=== PATIENT | female | born 1955 | race Caucasian/White ===

== ENCOUNTER → 2018-09-07 | Outpatient (CLI) | payer BC | END | disposition home or self-care (01) | LOC: LABWHC1 11:01 | PROVIDERS: ATTEND Otolaryngology | DX: J30.89 Other allergic rhinitis (principal) | CPT/HCPCS: 36415 ==

== ENCOUNTER → 2019-01-05 | Outpatient (CLI) | payer BC ==
--- NOTE | 2019-01-05 12:08 | MR ---
EXAMINATION TYPE: MR brain and iac wo/w con DATE OF EXAM: 01/05/2019 COMPARISON: 01/15/2010 HISTORY: Loss of balance, Dizziness, Acoustic nerve disorder TECHNIQUE: Multiplanar, multisequence images of the brain and brainstem is performed without and with IV contras t, utilizing 7 mL intravenous Gadavist . FINDINGS: Diffusion weighted images demonstrate no evidence of a recent infarct or other diffusion ab normality. Mild generalized degenerative change. There are numerous focal areas of abnormal signal sc attered throughout the white matter bilaterally nonspecific pattern but most of remote microvascular ischemia. Areas of abnormal signal involving the basal ganglia suggestive remote lacunar infarct. No mass effect or midline shift. No cerebellopontine angle mass. No pathologic enhancement of the ner ve complex. No diagnostic evidence of acoustic schwannoma. Midline structures demonstrate normal morp hology. The craniocervical junction appears within normal limits. Post contrast images demonstrate no abnormal enhancement. The dural venous sinuses appear patent. Changes of chronic sinusitis noted. IMPRESSION: 1. No evidence of cerebellopontine angle mass or acoustic schwannoma. 2. Mild chronic mastoiditis. 3. Mild chronic sinusitis. 4. Degenerative and nonspecific white matter changes most typical remote microvascular ischemia.
== END | disposition home or self-care (01) ==
LOC: RADMRIMAIN 08:34
PROVIDERS: ATTEND Nurse Practitioner Family
DX: H70.10 Chronic mastoiditis, unspecified ear (principal); R90.89 Other abnormal findings on diagnostic imaging of central nervous system; J32.9 Chronic sinusitis, unspecified; H93.3X9 Disorders of unspecified acoustic nerve; R55 Syncope and collapse; H53.10 Unspecified subjective visual disturbances; R40.0 Somnolence
CPT/HCPCS: 70553; A9585

== ENCOUNTER 2020-05-14 07:49 | Inpatient (IN) | payer BC, MEDICARE ==
--- NOTE | 2020-05-14 08:34 | ED ---
General Adult HPI - General Chief complaint: Weakness Stated complaint: weakness Time Seen by Provider: 05/14/20 08:10 Source: patient, EMS Mode of arrival: EMS Limitations: physical limitation - History of Present Illness Initial comments: Dictation was produced using [employer] dictation software. please excuse any grammatical, word or spelling errors. This patient was cared for during a federal and state declared state of emergency secondary to Covid 19 Chief Complaint: 64-year-old female transferred from [facility] for mild ly elevated troponin History of Present Illness: She 4-year-old female she had past medical history of COPD, CHF breast cancer. Currently taking chemotherapy. Patient was just discharged from [facility] 2-3 weeks ago for pneumonia and A. fib and CHF. Patient patient presented to [facility] for worsening weakness. She was there and was found to have slightly elevated troponin, proBNP of 1999. There is also concern of pneumonia. She was ordered for Levaquin and vancomycin. She was transferred here for cardiology and oncology evaluation. Patient states she went to [facility] because his closest. She was feeling weak and her can help her get up. She denies any shortness of breath no cough no fevers or constitutional symptoms no nausea vomiting or pain. The ROS documented in this emergency department record has been reviewed and confirmed by me. Those systems with pertinent positive or negative responses have been documented in the HPI. All other systems are other negative and/or noncontributory. PHYSICAL EXAM: General Impression: Alert and oriented x3, not in acute distress HEENT: Normocephalic atraumatic, extra-ocular movements intact, pupils equal and reactive to light bilaterally, mucous membranes moist. Cardiovascular: Heart regular rate and rhythm Chest: Able to complete full sentences, no retractions, no tachypnea Abdomen: abdomen soft, non-tender, non-distended, no organomegaly Musculoskeletal: Pulses present and equal in all extremities, no peripheral edema Motor: no focal deficits noted Neurological: CN II-XII grossly intact, no focal motor or sensory deficits noted Skin: Intact with no visualized rashes Psych: Normal affect and mood ED course: 64-year-old well-appearing female presents for generalized weakness. Vital signs upon arrival shows findings within acceptable limits. Patient had vancomycin hanging. She was ordered for Levaquin however was not administered. Patient does not have any symptoms to suggest any sort of infection. Levaquin was discontinued. Transfer documentation was reviewed. No obvious infectious processes occurring at this time. Patient already received aspirin prior to arriving at our hospital. Case is discussed with Dr. Mccartney who is covering for Dr. Gilbert. Dr. Mccartney is willing to accept patients care for admission. Cardiology and oncology consulted. - Related Data Home Medications Medication Instructions Recorded Confirmed ALPRAZolam [Xanax] 0.25 mg PO BID PRN 01/27/15 10/16/15 FLUoxetine HCL [PROzac] 20 mg PO DAILY 01/27/15 10/16/15 Insulin Detemir [Levemir Flextouch] 60 units SQ BID 01/27/15 10/16/15 Isosorbide Mononitrate ER [Imdur] 30 mg PO DAILY 01/27/15 10/16/15 Lisinopril/Hydrochlorothiazide 1 each PO DAILY 01/27/15 10/16/15 [Zestoretic 20-25] Simvastatin [Zocor] 20 mg PO HS 01/27/15 10/16/15 amLODIPine BESYLATE [Norvasc] 5 mg PO DAILY 01/27/15 10/16/15 atenoloL [Tenormin] 25 mg PO DAILY 01/27/15 10/16/15 Aspirin 81 mg PO DAILY 01/29/15 10/16/15 Dapagliflozin Propanediol [Farxiga] 5 mg PO DAILY 01/29/15 10/16/15 Insulin Lispro [humaLOG Kwikpen] 13 units SQ TID-W/MEALS 01/29/15 10/16/15 Levothyroxine Sodium [Synthroid] 75 mcg PO DAILY 01/29/15 10/16/15 Naproxen Sodium [Aleve] 220 mg PO Q12HR PRN 10/11/15 10/16/15 metFORMIN HCL 1,000 mg PO BID 10/11/15 10/16/15 Previous Rx's Medication Instructions Recorded traMADol HCl [Ultram] 50 mg PO Q4H PRN #20 tab 01/27/15 Albuterol Sulfate [Proair Hfa] 1 - 2 puff INHALATION Q6HR PRN #1 02/01/15 inhaler Furosemide [Lasix] 40 mg PO DAILY #30 tablet 02/01/15 Potassium Chloride ER [K-Dur 20] 20 meq PO DAILY #30 tab 02/01/15 HYDROcodone/APAP 5-325MG [[place] 5] 1 - 2 each PO Q4H PRN #20 tab 10/16/15 Allergies Allergy/AdvReac Type Severity Reaction Status Date / Time cefaclor [From Ceclor] Allergy Unknown Verified 05/14/20 07:58 clarithromycin [From Biaxin] Allergy Unknown Verified 05/14/20 07:58 Penicillins Allergy Unknown Verified 05/14/20 07:58 Sulfa (Sulfonamide Allergy Unknown Verified 05/14/20 07:58 Antibiotics) Review of Systems ROS Statement: Those systems with pertinent positive or pertinent negative responses have been documented in the HPI. ROS Other: All systems not noted in ROS Statement are negative. Past Medical History Past Medical History: Diabetes Mellitus, Hyperlipidemia, Hypertension, Skin Disorder, Thyroid Disorder Additional Past Medical History / Comment(s): vertigo, eczema, yeast infections in creases, left Breast cancer last chemo 05/07/20 History of Any Multi-Drug Resistant Organisms: MRSA Date of last positivie culture/infection: 06/2012 MDRO Source:: lungs Past Surgical History: Section, Cholecystectomy, Hysterectomy, Orthopedic Surgery Additional Past Surgical History / Comment(s): kenneth rotator cuff sugery, bunione ctomy rt foot Past Anesthesia/Blood Transfusion Reactions: No Reported Reaction Past Psychological History: Anxiety Smoking Status: Former smoker Past Alcohol Use History: None Reported Past Drug Use History: None Reported - Past Family History Mother Family Medical History: No Reported History Father Family Medical History: Hypertension General Exam Limitations: physical limitation Course Vital Signs 05/14/20 05/14/20 07:54 08:31 Temperature 98.8 F Pulse Rate 95 99 Respiratory 18 18 Rate Blood Pressure 106/63 128/63 O2 Sat by Pulse 98 97 Oximetry Disposition Clinical Impression: Elevated troponin Disposition: ADMITTED IP TO THIS [facility] Condition: Fair Referrals: Anil Aldridge MD [Primary Care Provider] - 1-2 days Decision Time: 08:42
[2020-05-14] MEDS ORDERED: NALOXONE 0.4 MG/ML 1 ML VIAL IV PRN (08:40)
--- NOTE | 2020-05-14 09:05 | XR ---
EXAMINATION TYPE: XR chest 1V portable DATE OF EXAM: 05/14/2020 COMPARISON: Prior chest x-ray 01/31/2015, chest x-ray from outside institution 05/14/2020 HISTORY: Pneumonia TECHNIQUE: Single frontal view of the chest is obtained. FINDINGS: Port is present in the left pectoral region, catheter courses to the level of the superior vena cava region. Patchy density is present bilaterally, the interstitium somewhat increased. No del dent pneumothorax. Left hemidiaphragm not entirely visualized. Heart size may be accentuated appearan ce due to rotation. Perihilar density is present. Aorta is dense. No evident pneumothorax. IMPRESSION: Correlate for pneumonia, difficult to exclude effusion. Follow-up is recommended.
[2020-05-14 11:36] LABS: Glucose,Whole Blood 232 mg/dL (75-99)
--- NOTE | 2020-05-14 12:07 | CONS ---
CONSULTATION CHIEF COMPLAINT: Elevated troponin. Kade is a 64-year-old lady with history of breast cancer, status post radiation and chemotherapy. She last received her chemo just over a week ago. Prior admission to [facility] with questionable pneumonia, who is admitted to hospital because of elevated troponin. She states that she went to the emergency room at [facility] primarily because she was feeling fatigued, tired and had weakness in her legs. The troponin was done that came back mildly elevated due to which she is admitted to hospital. At the time of my evaluation this morning, she appears comfortable at rest. Does not have chest pain or difficulty in breathing. Her EKG shows atrial fibrillation with nonspecific ST-T wave changes. The exact etiology of her troponin elevation is unclear, but her clinical presentation is not consistent with a diagnosis of acute myocardial infarction. I am going to obtain another troponin and repeat it every 8 hours. Obtain a 2D echo to assess her LV function and wall motion. PAST MEDICAL HISTORY: Significant for hypertension, hypothyroidism, dyslipidemia, diabetes, CA breast status post chemo radiation. MEDICATIONS: As charted and include metoprolol 25 mg daily, amlodipine 10 mg daily, Trulicity, Singulair, Synthroid, Prozac, Imdur, Lasix, Zestril, Tenormin, Zocor, Zyprexa, insulin, Prozac, Bumex, Eliquis, ProAir, Xanax. ALLERGIC: To CECLOR, CLARITHROMYCIN, PENICILLIN and SULFA. FAMILY HISTORY: Negative for premature coronary artery disease. SOCIAL HISTORY: Negative for current smoking, EtOH abuse, or drug abuse. REVIEW OF SYSTEMS: HEENT is unremarkable. CARDIAC: As described above. RESPIRATORY: As described above. GI: Negative. GENITOURINARY: Negative. ALLERGY/IMMUNOLOGY: Negative. SKIN: Negative. MUSCULOSKELETAL: Significant for arthritis. PSYCHOSOCIAL: Negative. ENDOCRINE: Negative. DERM: Negative. CONSTITUTIONAL: As described above. PHYSICAL EXAM: Patient is comfortable at rest. Afebrile. Heart rate is 98 beats per minute. Blood pressure is 102/6, respiratory rate is 18, O2 saturation is 98% on 4 L. There is no jugular venous distention. Chest exam reveals good air entry bilaterally. Heart exam reveals first and second heart sounds, irregular rhythm. Systolic murmur at the apex. Abdomen is soft. Exam of extremities reveal trace edema. Peripheral pulses are felt. Labs are pending at this time. ASSESSMENT: 1. Weakness, fatigue and tiredness, probably related to recent chemotherapy chemo- radiation and breast cancer. 2. Elevated troponin of no clear clinical significance. The patient did not have chest pain or difficulty in breathing. EKG does not reveal ischemic changes. Her clinical presentation is not consistent with a diagnosis of myocardial infarction and the elevated troponin as such is not related to myocardial infarction. 3. Permanent atrial fibrillation, heart rate is well controlled. She is on oral anticoagulant, which she is going to continue. 4. Breast cancer on chemo radiation. PLAN: Will follow the [facility]. Obtain a 2D echo. Hopefully home over the next 24-48 hours. MMODL / IJN: [id number] /
--- NOTE | 2020-05-14 13:07 | P.HPIM ---
History of Present Illness H&P Date: 05/14/20 Chief Complaint: Progressive weakness and elevated troponin This is a 64-year-old female who was seen eval reexamined the emergency department, patient admitted with a transfer from a neck in the hospital where she was presented with progressive weakness found to have elevated troponin, patient was advised to be transferred to [facility], patient has a prior significant history of A. fib with RVR and congestive heart failure likely diastolic failure was admitted at [facility] about 3 weeks ago, during evaluation she was found to have elevated BNP of over 2000, Review of Systems All systems: negative Past Medical History Past Medical History: Diabetes Mellitus, Hyperlipidemia, Hypertension, Skin Disorder, Thyroid Disorder Additional Past Medical History / Comment(s): vertigo, eczema, yeast infections in creases, left Breast cancer last chemo 05/07/20 History of Any Multi-Drug Resistant Organisms: MRSA Date of last positivie culture/infection: 06/2012 MDRO Source:: lungs Past Surgical History: Section, Cholecystectomy, Hysterectomy, Orthopedic Surgery Additional Past Surgical History / Comment(s): kenneth rotator cuff sugery, bunionectomy rt foot Past Anesthesia/Blood Transfusion Reactions: No Reported Reaction Past Psychological History: Anxiety Smoking Status: Former smoker Past Alcohol Use History: None Reported Past Drug Use History: None Reported - Past Family History Mother Family Medical History: No Reported History Father Family Medical History: Hypertension Medications and Allergies Home Medications Medication Instructions Recorded Confirmed Type Insulin Detemir [Levemir Flextouch] 45 units SQ BID 01/27/15 05/14/20 History Simvastatin [Zocor] 20 mg PO HS 01/27/15 05/14/20 History amLODIPine BESYLATE [Norvasc] 10 mg PO DAILY 01/27/15 05/14/20 History atenoloL [Tenormin] 25 mg PO DAILY 01/27/15 05/14/20 History Dapagliflozin Propanediol [Farxiga] 5 mg PO DAILY 01/29/15 05/14/20 History metFORMIN HCL 1,000 mg PO BID 10/11/15 05/14/20 History ALPRAZolam [Xanax] 0.5 mg PO DAILY PRN 05/14/20 05/14/20 History Albuterol Sulfate [Proair Hfa] 2 puff INHALATION Q6HR PRN 05/14/20 05/14/20 History Apixaban [Eliquis] 5 mg PO BID 05/14/20 05/14/20 History Bumetanide [Bumex] 1 mg PO BID 05/14/20 05/14/20 History Clotrimazole/Betameth Cream 1 applic TOPICAL BID 05/14/20 05/14/20 History [Lotrisone] Cyanocobalamin (Vitamin B-12) 1,000 mcg PO DAILY 05/14/20 05/14/20 History [Vitamin B-12] Dulaglutide [Trulicity] 0.75 mg SQ Q7D 05/14/20 05/14/20 History FLUoxetine HCL [PROzac] 40 mg PO DAILY 05/14/20 05/14/20 History FLUoxetine HCL [PROzac] 40 mg PO DAILY 05/14/20 05/14/20 History Fluticasone Propion/Salmeterol 1 puff INHALATION RT-BID 05/14/20 05/14/20 History [Wixela 500-50 Inhub] Furosemide [Lasix] 40 mg PO DAILY 05/14/20 05/14/20 History Ibuprofen 400 mg PO Q8H 05/14/20 05/14/20 History Isosorbide Mononitrate [Isosorbide 30 mg PO DAILY 05/14/20 05/14/20 History Mononitrate ER] Levothyroxine Sodium [Synthroid] 175 mcg PO DAILY 05/14/20 05/14/20 History Levothyroxine Sodium [Synthroid] 175 mcg PO DAILY 05/14/20 05/14/20 History Metoprolol Succinate [Toprol XL] 50 mg PO DAILY 05/14/20 History Metoprolol Tartrate 25 mg PO DAILY 05/14/20 05/14/20 History Montelukast [Singulair] 10 mg PO DAILY 05/14/20 05/14/20 History OLANZapine [ZyPREXA] 5 mg PO HS 05/14/20 05/14/20 History Omeprazole 20 mg PO DAILY 05/14/20 05/14/20 History Potassium Chloride ER [K-Dur 20] 20 meq PO BID 05/14/20 05/14/20 History Psyllium Husk 100% [Metamucil 1 packet PO TID PRN 12/21/20 12/21/20 History Packet] lisinopriL [Zestril] 20 mg PO DAILY 05/14/20 05/14/20 History Allergies Allergy/AdvReac Type Severity Reaction Status Date / Time cefaclor [From Ceclor] Allergy Unknown Verified 05/14/20 09:24 clarithromycin [From Biaxin] Allergy Unknown Verified 05/14/20 09:24 Penicillins Allergy Unknown Verified 05/14/20 09:24 Sulfa (Sulfonamide Allergy Unknown Verified 05/14/20 09:24 Antibiotics) Physical Exam Vitals: Vital Signs Temp Pulse Pulse Resp BP BP Pulse Ox 05/14/20 12:00 109 H 18 119/72 92 L 05/14/20 11:39 92 L 05/14/20 09:41 98.6 F 92 18 122/65 93 L 05/14/20 09:25 97.9 F 107 H 18 121/71 98 05/14/20 08:31 99 18 128/63 97 05/14/20 07:54 98.8 F 95 18 106/63 98 Intake and Output 05/13/20 05/14/20 05/14/20 22:59 06:59 14:59 Other: Weight 72.121 kg - Constitutional General appearance: average body habitus - EENT Eyes: PERRLA Ears: bilateral: normal - Neck Carotids: bilateral: upstroke normal Thyroid: bilateral: normal size - Respiratory Respiratory: bilateral: CTA - Cardiovascular Rhythm: regular Heart sounds: normal: S1, S2 - Gastrointestinal General gastrointestinal: normal bowel sounds - Neurologic Neurologic: CNII-XII intact - Musculoskeletal Musculoskeletal: gait normal, generalized weakness - Psychiatric Psychiatric: A&O x's 3, appropriate affect, intact judgment & insight Results Labs: Abnormal Lab Results - Last 24 Hours (Table) 05/14/20 Range/Units 11:27 POC Glucose (mg/dL) 232 H (75-99) mg/dL Chest x-ray: report reviewed, image reviewed (Finding as noted above) Thrombosis Risk Factor Assmnt - Choose All That Apply Each Risk Factor Represents 2 Points: Age 61-74 years Thrombosis Risk Factor Assessment Total Risk Factor Score: 2 Thrombosis Risk Factor Assessment Level: Low Risk Assessment and Plan Assessment: Right-sided pneumonia History of breast cancer and chemotherapy Right-sided small pleural effusion Elevated troponin Generalized weakness History of A. fib with RVR Acute on chronic diastolic heart failure Plan: IV antibiotics Resume home medications Repeat labs tomorrow Further recommendations pending plan of care as per clinical response of patient Time with Patient: Greater than 30
[2020-05-14] MEDS ORDERED: PSYLLIUM HUSK 100% 6 GM PACKET PO PRN (13:51)
--- NOTE | 2020-05-14 14:51 | P.CONS ---
History of Present Illness - Reason for Consult Consult date: 05/14/20 breast cancer Requesting physician: Vipin Ordoñez - Chief Complaint weakness - History of Present Illness Mrs. Henao is a very pleasant female patient of Dr. Leung who was initially seen in consult at [facility] 02/16/20. She had had a recent carotid endarterectomy, presenting with shortness of breath and bilateral lower extremity swelling. Chest x-ray positive for bilateral infiltrates, CT negative for PE but, showed significant mediastinal adenopathy, left axillary adenopathy, left breast mass 1.7 x 1.4 cm. She was treated with antibiotics for aspiration pneumonia. Biopsy of the breast and axillary lymph node 02/17/20 consistent with invasive ductal carcinoma, ER/MN negative, HER-2 +1. PET scan 02/28/20 was positive only in the left breast and axilla, no evidence of metastatic disease, lung infiltrates and pleural effusions had resolved. She was started on neoadjuvant dose dense AC with GCSF, first dose 04/09. She had a prolonged hospitalization, 04/11/20-04/24/20 for CHF exacerbation. She had pleural effusion, suspected pneumonia, 6 L thoracentesis on the right side, also severe leukopenia, spend some time in the ICU. WBC/ANC recovered about day 9 after GCSF injection. Case was discussed with Cardiology and Pulmonary. 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 Okay to continue with treatment. Patient had second dose of AC wtih GCSF 05/02/20. Patient is admitted for profound weakness, fall to the floor. She was unable to move her arms or her legs or material mover her body weight in bed. Her went to lift her out of bed to go to the bathroom and that she basically just felt to the floor. She denied fever, nausea, headache or dizziness, nausea or vomiting, shortness of breath, chest pain, abdominal pain, dysuria, diarrhea, constipation, swelling in the legs. She states that she can move all of her extremities now, generally weak but, nothing like she was at home. Review of Systems 14 point review of systems is negative except as stated in HPI Past Medical History Past Medical History: Cancer, Diabetes Mellitus, Hyperlipidemia, Hypertension, Skin Disorder, Thyroid Disorder Additional Past Medical History / Comment(s): vertigo, eczema, yeast infections in creases, left Breast cancer last chemo 05/07/20 History of Any Multi-Drug Resistant Organisms: MRSA Year Discovered:: 06/2012 MDRO Source:: lungs Past Surgical History: Section, Cholecystectomy, Hysterectomy, Orthopedic Surgery Additional Past Surgical History / Comment(s): kenneth rotator cuff sugery, bunionectomy rt foot Past Anesthesia/Blood Transfusion Reactions: No Reported Reaction Past Psychological History: Anxiety Smoking Status: Former smoker Past Alcohol Use History: None Reported Past Drug Use History: None Reported - Past Family History Mother Family Medical History: No Reported History Father Family Medical History: Hypertension Medications and Allergies Home Medications Medication Instructions Recorded Confirmed Type Insulin Detemir [Levemir Flextouch] 45 units SQ BID 01/27/15 05/14/20 History Simvastatin [Zocor] 20 mg PO HS 01/27/15 05/14/20 History amLODIPine BESYLATE [Norvasc] 10 mg PO DAILY 01/27/15 05/14/20 History atenoloL [Tenormin] 25 mg PO DAILY 01/27/15 05/14/20 History Dapagliflozin Propanediol [Farxiga] 5 mg PO DAILY 01/29/15 05/14/20 History metFORMIN HCL 1,000 mg PO BID 10/11/15 05/14/20 History ALPRAZolam [Xanax] 0.5 mg PO DAILY PRN 05/14/20 05/14/20 History Albuterol Sulfate [Proair Hfa] 2 puff INHALATION Q6HR PRN 05/14/20 05/14/20 History Apixaban [Eliquis] 5 mg PO BID 05/14/20 05/14/20 History Bumetanide [Bumex] 1 mg PO BID 05/14/20 05/14/20 History Clotrimazole/Betameth Cream 1 applic TOPICAL BID 05/14/20 05/14/20 History [Lotrisone] Cyanocobalamin (Vitamin B-12) 1,000 mcg PO DAILY 05/14/20 05/14/20 History [Vitamin B-12] Dulaglutide [Trulicity] 0.75 mg SQ Q7D 05/14/20 05/14/20 History FLUoxetine HCL [PROzac] 40 mg PO DAILY 05/14/20 05/14/20 History FLUoxetine HCL [PROzac] 40 mg PO DAILY 05/14/20 05/14/20 History Fluticasone Propion/Salmeterol 1 puff INHALATION RT-BID 05/14/20 05/14/20 History [Wixela 500-50 Inhub] Furosemide [Lasix] 40 mg PO DAILY 05/14/20 05/14/20 History Ibuprofen 400 mg PO Q8H 05/14/20 05/14/20 History Isosorbide Mononitrate [Isosorbide 30 mg PO DAILY 05/14/20 05/14/20 History Mononitrate ER] Levothyroxine Sodium [Synthroid] 175 mcg PO DAILY 05/14/20 05/14/20 History Levothyroxine Sodium [Synthroid] 175 mcg PO DAILY 05/14/20 05/14/20 History Metoprolol Succinate [Toprol XL] 50 mg PO DAILY 05/14/20 History Metoprolol Tartrate 25 mg PO DAILY 05/14/20 05/14/20 History Montelukast [Singulair] 10 mg PO DAILY 05/14/20 05/14/20 History OLANZapine [ZyPREXA] 5 mg PO HS 05/14/20 05/14/20 History Omeprazole 20 mg PO DAILY 05/14/20 05/14/20 History Potassium Chloride ER [K-Dur 20] 20 meq PO BID 05/14/20 05/14/20 History Psyllium Husk 100% [Metamucil 1 packet PO TID PRN 05/14/20 05/14/20 History Packet] lisinopriL [Zestril] 20 mg PO DAILY 05/14/20 05/14/20 History Allergies Allergy/AdvReac Type Severity Reaction Status Date / Time cefaclor [From Ceclor] Allergy Unknown Verified 05/14/20 09:24 clarithromycin [From Biaxin] Allergy Unknown Verified 05/14/20 09:24 Penicillins Allergy Unknown Verified 05/14/20 09:24 Sulfa (Sulfonamide Allergy Unknown Verified 05/14/20 09:24 Antibiotics) Physical Exam Vitals: Vital Signs Temp Pulse Pulse Resp BP BP Pulse Ox 05/14/20 09:41 98.6 F 92 18 122/65 93 L 05/14/20 09:25 97.9 F 107 H 18 121/71 98 05/14/20 08:31 99 18 128/63 97 05/14/20 07:54 98.8 F 95 18 106/63 98 Intake and Output 05/13/20 05/14/20 05/14/20 22:59 06:59 14:59 Other: Weight 72.121 kg - Constitutional General appearance: average body habitus, cooperative, no acute distress - EENT Eyes: anicteric sclerae, EOMI ENT: hearing grossly normal, normal oropharynx - Neck Neck: no lymphadenopathy - Respiratory Respiratory: left: diminished, bilateral: CTA - Cardiovascular Rhythm: regular Heart sounds: normal: S1, S2 Abnormal Heart Sounds: no systolic murmur, no diastolic murmur, no rub, no S3 Gallop, no S4 Gallop, no click, no other leg Peripheral Edema: bilateral: None - Gastrointestinal General gastrointestinal: no absent bowel sounds, no decreased bowel sounds, no distended, no hepatomegaly, no hyperactive bowel sounds, normal bowel sounds, no organomegaly, no rigid, no scaphoid, soft, no splenomegaly, no tenderness, no umbilical hernia, no ventral hernia - Integumentary Integumentary: normal - Neurologic Neurologic: CNII-XII intact - Musculoskeletal Musculoskeletal: strength equal bilaterally - Psychiatric Psychiatric: A&O x's 3, appropriate affect, intact judgment & insight Results Chest x-ray: report reviewed Assessment and Plan (1) Elevated troponin Narrative/Plan: Cardiology consulted, pending their evaluation and recommendations. Current Visit: Yes Status: Acute Priority: High Code(s): R77.8 - OTHER SPECIFIED ABNORMALITIES OF PLASMA PROTEINS SNOMED Code(s): 607363671 (2) Pneumonia Narrative/Plan: Chest x-ray suspicious for the same. Patient recently had a prolonged hospitalization and bout with CHF and pneumonia with a 6 L rt sided thoracentesis (non-malignant) Patient is currently on antibiotics. Defer to Internal Medicine. Current Visit: Yes Status: Acute Priority: High Code(s): J18.9 - PNEUMONIA, UNSPECIFIED ORGANISM SNOMED Code(s): 894238673 (3) Breast cancer Narrative/Plan: Patient has a history of stage II a breast cancer. She is status post 2 cycles of neoadjuvant treatment. She is on cardiotoxic therapy, Adriamycin. She was recently worked up pretty extensively at [facility] during prolonged hospitalization there. Case was reviewed with both Pulmonary and Cardiology prior to proceeding with second cycle. Pending Cardiology evaluation and opinion. Will follow with pt hospitalization to determine if she is going to cont with her next sched cycle of treatment in 2 days Current Visit: Yes Status: Acute Priority: High Code(s): C50.919 - MALIGNANT NEOPLASM OF UNSP SITE OF UNSPECIFIED FEMALE BREAST SNOMED Code(s): 446494284 (4) CHF (congestive heart failure) Current Visit: No Status: Chronic Priority: Medium Code(s): I50.9 - HEART FAILURE, UNSPECIFIED SNOMED Code(s): 75133724
[2020-05-14] MEDS: NON FORMULARY DRUG (Dulaglutide [Trulicity] 0.75 MG/0.5 ML Pen.Injctr) SQ SCH (15:46)
[2020-05-14] MEDS: atenoloL 25 MG TAB PO SCH (15:54)
[2020-05-14] MEDS: METOPROLOL TARTRATE 25 MG TAB PO SCH (15:54)
[2020-05-14] MEDS: amLODIPine 10 MG TAB PO SCH (15:54)
[2020-05-14] MEDS ORDERED: PIPERACILLIN-TAZOBACTAM 3.375 GM in SODIUM CHLORIDE 0.9% 100 ML IVPB SCH (16:00)
[2020-05-14 17:03] LABS: Glucose,Whole Blood 371 mg/dL (75-99)
[2020-05-14] MEDS: INSULIN ASPART (NovoLOG) 100 UNIT/ML VIAL SQ SCH ×2 (17:32→20:57)
[2020-05-14] MEDS ORDERED: SODIUM CHLORIDE 0.9% 500 ML 250 ML IV ONE (18:18)
[2020-05-14] MEDS: SODIUM CHLORIDE 0.9% 1,000 ML IV SCH (18:50)
[2020-05-14 20:32] LABS: Glucose,Whole Blood 389 mg/dL (75-99)
[2020-05-14] MEDS: BUMETANIDE 1 MG TAB PO SCH (20:56)
[2020-05-14] MEDS: IBUPROFEN 400 MG TAB PO PRN (20:56)
[2020-05-14] MEDS: APIXABAN 5 MG TAB PO SCH (20:56)
[2020-05-14] MEDS: ATORVASTATIN 10 MG TAB PO SCH (20:56)
[2020-05-14] MEDS: metFORMIN 500 MG TAB PO SCH (20:57)
[2020-05-14] MEDS: INSULIN DETEMIR (LEVEMIR) 100 UNIT/ML SYR SQ SCH (20:57)
[2020-05-14] MEDS: OLANZapine 5 MG TAB PO SCH (20:57)
[2020-05-14] MEDS: CLOTRIMAZOLE/BETAMETH 1-0.05% CREAM 45 GM TUBE TOPICAL SCH (20:57)
[2020-05-14] MEDS: POTASSIUM CHLORIDE ER 20 MEQ TAB.ER PO SCH (20:58)
[2020-05-14] MEDS ORDERED: LEVOFLOXACIN 500MG-D5W PMX 500 MG in DEXTROSE/WATER 1 100ML.BAG IVPB SCH (21:00)
[2020-05-14] MEDS: ALPRAZolam 0.5 MG TAB PO PRN (21:01)
[2020-05-14] MEDS: ALBUTEROL HFA INHALER INHALATION PRN (21:36)
[2020-05-14] MEDS: SYMBICORT 160-4.5 MCG INHALER INHALATION SCH (21:36)
--- NOTE | 2020-05-14 22:06 | P.HPIM ---
History of Present Illness H&P Date: 05/14/20 Chief Complaint: Elevated troponin with possible non-ST [place], COPD, breast cancer, 64-year-old female one of Dr. Aldridge patient with past medical history of breast cancer, hypertension, hyperlipidemia and COPD who apparently was hospitalized at [facility] 3 weeks ago for pneumonia CHF and A. fib and has done well has been seen oncology on regular basis apparently she was diagnosed with worsening dyspnea and shortness of breath found to have significant lymph nodes in the mediastinal area with left breast mass measured 1.7, 1.4 cm biopsy of the breasts and axilla on 02/17/2020 was consistent with invasive ductal carcinoma ER/MI negative, HER-2 1+, no evidence of metastasis disease lung infiltrate and pleural effusion had resolved a Chin was started on new adjuvant dose dense of chemotherapy in April 09 she had a prolonged hospitalization no April 11 till April 24 for CHF exacerbation and she had a pleural effusion suspected pneumonia 6 L of thoracentesis of the right side was taking she had also severe leukopenia and was in ICU for long time with WBC/ANC recover about 9 days after G-CSF injection was started. 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 Patient presented to [facility] emergency department complaining of severe weakness and fatigue patient profound weakness fall on the floor was in able to move her arms and legs her went to lift her out of bed to go to the bathroom and that she is basically just felt to the floor she denies any fever, nausea headache dizziness no vomiting positive mild dyspnea and shortness of breath no chest pain positive mild abdominal pain with no dysuria diarrhea constipation swelling of the legs she has generalized weakness no focal deficit. At the presentation to [place] emergency department found to have elevated troponin with proBNP was 2000 with concern of pneumonia she was giving Levaquin and vancomycin and transfer to [facility] to be under cardiology and oncology. Review of Systems CONSTITUTIONAL: Well-developed no acute respiratory distress. Positive generalized weakness EYES: No icterus sclerae, no conjunctivitis. EARS, NOSE, MOUTH, THROAT, and FACE: No sore throat, lymphadenopathy, carotid bruits or deformity. RESPIRATORY: Positive shortness of breath no cough wheezes CARDIOVASCULAR: Positive palpitation with PND and orthopnea and no angina GASTROINTESTINAL: Positive abdominal discomfort with nausea and vomiting positive diarrhea no constipation no GI bleed. GENITOURINARY: Positive polyuria no hematuria or UTI no stone. INTEGUMENT/BREAST: Negative for any muscular injury with mild osteoarthritis.. HEMATOLOGIC/LYMPHATIC: Chronic anemia and cytopenia MUSCULOSKELTAL: Negative for Myalgia or arthralgia. NEURLOGICAL: No LOC, Sz or syncope, blurred vision dizziness or abnormality.. BEHAVIORAL/PSYCH: Negative. ENDOCRINE: Negative. Past Medical History Past Medical History: Cancer, Diabetes Mellitus, Hyperlipidemia, Hypertension, Skin Disorder, Thyroid Disorder Additional Past Medical History / Comment(s): vertigo, eczema, yeast infections in creases, left Breast cancer last chemo 05/07/20 History of Any Multi-Drug Resistant Organisms: MRSA Date of last positivie culture/infection: 06/2012 MDRO Source:: lungs Past Surgical History: Section, Cholecystectomy, Hysterectomy, Orthopedic Surgery Additional Past Surgical History / Comment(s): kenneth rotator cuff sugery, bunionectomy rt foot Past Anesthesia/Blood Transfusion Reactions: No Reported Reaction Past Psychological History: Anxiety Smoking Status: Former smoker Past Alcohol Use History: None Reported Past Drug Use History: None Reported - Past Family History Mother Family Medical History: No Reported History Father Family Medical History: Hypertension Medications and Allergies Home Medications Medication Instructions Recorded Confirmed Type Insulin Detemir [Levemir Flextouch] 45 units SQ BID 01/27/15 05/14/20 History Simvastatin [Zocor] 20 mg PO HS 01/27/15 05/14/20 History amLODIPine BESYLATE [Norvasc] 10 mg PO DAILY 01/27/15 05/14/20 History atenoloL [Tenormin] 25 mg PO DAILY 01/27/15 05/14/20 History Dapagliflozin Propanediol [Farxiga] 5 mg PO DAILY 01/29/15 05/14/20 History metFORMIN HCL 1,000 mg PO BID 10/11/15 05/14/20 History ALPRAZolam [Xanax] 0.5 mg PO DAILY PRN 05/14/20 05/14/20 History Albuterol Sulfate [Proair Hfa] 2 puff INHALATION Q6HR PRN 05/14/20 05/14/20 History Apixaban [Eliquis] 5 mg PO BID 05/14/20 05/14/20 History Bumetanide [Bumex] 1 mg PO BID 05/14/20 05/14/20 History Clotrimazole/Betameth Cream 1 applic TOPICAL BID 05/14/20 05/14/20 History [Lotrisone] Cyanocobalamin (Vitamin B-12) 1,000 mcg PO DAILY 05/14/20 05/14/20 History [Vitamin B-12] Dulaglutide [Trulicity] 0.75 mg SQ Q7D 05/14/20 05/14/20 History FLUoxetine HCL [PROzac] 40 mg PO DAILY 05/14/20 05/14/20 History FLUoxetine HCL [PROzac] 40 mg PO DAILY 05/14/20 05/14/20 History Fluticasone Propion/Salmeterol 1 puff INHALATION RT-BID 05/14/20 05/14/20 History [Wixela 500-50 Inhub] Furosemide [Lasix] 40 mg PO DAILY 05/14/20 05/14/20 History Ibuprofen 400 mg PO Q8H 05/14/20 05/14/20 History Isosorbide Mononitrate [Isosorbide 30 mg PO DAILY 05/14/20 05/14/20 History Mononitrate ER] Levothyroxine Sodium [Synthroid] 175 mcg PO DAILY 05/14/20 05/14/20 History Levothyroxine Sodium [Synthroid] 175 mcg PO DAILY 05/14/20 05/14/20 History Metoprolol Succinate [Toprol XL] 50 mg PO DAILY 05/14/20 History Metoprolol Tartrate 25 mg PO DAILY 05/14/20 05/14/20 History Montelukast [Singulair] 10 mg PO DAILY 05/14/20 05/14/20 History OLANZapine [ZyPREXA] 5 mg PO HS 05/14/20 05/14/20 History Omeprazole 20 mg PO DAILY 05/14/20 05/14/20 History Potassium Chloride ER [K-Dur 20] 20 meq PO BID 05/14/20 05/14/20 History Psyllium Husk 100% [Metamucil 1 packet PO TID PRN 05/14/20 05/14/20 History Packet] lisinopriL [Zestril] 20 mg PO DAILY 05/14/20 05/14/20 History Allergies Allergy/AdvReac Type Severity Reaction Status Date / Time cefaclor [From Ceclor] Allergy Unknown Verified 05/14/20 09:24 clarithromycin [From Biaxin] Allergy Unknown Verified 05/14/20 09:24 Penicillins Allergy Unknown Verified 05/14/20 09:24 Sulfa (Sulfonamide Allergy Unknown Verified 05/14/20 09:24 Antibiotics) Physical Exam Vitals: Vital Signs Temp Pulse Pulse Resp BP BP Pulse Ox 05/14/20 15:56 20 90 L 05/14/20 15:49 98.3 F 133 H 20 151/80 88 L 05/14/20 14:00 133 H 20 05/14/20 12:00 109 H 18 119/72 92 L 05/14/20 11:39 92 L 05/14/20 09:41 98.6 F 92 18 122/65 93 L 05/14/20 09:25 97.9 F 107 H 18 121/71 98 05/14/20 08:31 99 18 128/63 97 05/14/20 07:54 98.8 F 95 18 106/63 98 Intake and Output 05/14/20 05/14/20 05/14/20 06:59 14:59 22:59 Intake Total 250 Balance 250 Intake: Oral 250 Other: Weight 72.121 kg General Appearance: Alert, cooperative, no distress, appears older than her age Neck HEENT: Supple, no lymphadenopathy, no thyroid enlargement, no carotid bruits. Lungs: Decreased breath some bilateral fine rhonchi positive mild expiratory wheezes with crackles in the right base. Chest Wall: Decrease expansion with deep inspiration no tenderness and no deformity was found on exam, no costochondral pain or discomfort. Heart: Regular rate and rhythm, S1, S2 normal, positive systolic murmur. Back: Symmetric, no curvature, ROM normal, no CVA tenderness. Abdomen: Soft, non-tender, bowel sounds active all four quadrants, no masses, no organomegaly. Extremities: 1+ edema and decreased pulses bilaterally with slight arthritis of both knees and hips. Pulses: 2+ and symmetric. Skin: Skin color, texture, tugor normal, no rashes or lesions. Neurologic: Alert oriented x3 cranial nerves II through XII intact, no motor deficit, no abnormal balance or gait. Results Labs: Abnormal Lab Results - Last 24 Hours (Table) 12/21/20 12/21/20 Range/Units 11:27 12:46 POC Glucose (mg/dL) 232 H (75-99) mg/dL Troponin I 0.036 H* (0.000-0.034) ng/mL Thrombosis Risk Factor Assmnt - DVT/VTE Prophylaxis DVT/VTE Prophylaxis: Pharmacologic Prophylaxis ordered, Mechanical Prophylaxis ordered - Choose All That Apply Each Risk Factor Represents 2 Points: Age 61-74 years Thrombosis Risk Factor Assessment Total Risk Factor Score: 2 Thrombosis Risk Factor Assessment Level: Low Risk Assessment and Plan Assessment: 1 non-ST [place]: With elevated troponin, we'll consult cardiology, echocardiogram w ill be done, repeat CK with troponin along with BMP in the next 24 hours repeat EKG keep watching patient for any abnormal finding on arrhythmia. 2 right-sided pneumonia: Most likely gram-negative specially with recent history of neutropenia post chemotherapy, patient was giving 1 g of Vanco along with Levaquin will consult pulmonary patient might require smaller dose of steroid as well. 3 right-sided pleural effusion: After large pleural effusion with 90 to removed recently patient is doing well at this point need to be watch over time. 4 severe generalized weakness most likely constitutional symptom secondary to chemotherapy along with her cancer and management overall continue supportive care physical therapy and occupational therapy. 5 chronic history of A. fib with RVR: Pulse rates under control currently patient will remain on atenolol 25 mg daily. Still on Eliquis 5 mg twice a day as well. 6 history of breast cancer been treated with chemotherapy with reaction on side effect of chemotherapy. 7 type 2 diabetes on insulin: Continue patient on Levemir along with Accu-Chek sliding scales coverage still on metformin as well. 8 history of COPD: Remain on Symbicort along with DuoNeb and multiple a cast and supportive O2. 9 hypothyroidism: Continue patient on levothyroxine 175 g daily. 10 GI prophylaxis: Patient to continue on pantoprazole 40 mg daily. 11 severe lactic acidosis: Continue supportive care as well continue to treat underlying infection with IV antibiotics repeat lactic acid after hydration and antibiotic use. 12 hypertension: Was well controlled on atenolol, Norvasc 10 mg daily, Zestril 20 mg daily. 13 diastolic congestive heart failure: Remain on Lasix and lisinopril. 14 DVT prophylaxis: Remain on anticoagulation. CODE STATUS: Full code. Admit patient to the inpatient service for more than 2 night stay.
[2020-05-15 05:54] LABS: Anisocytosis Slight; Basophils # (A) 0.7 k/uL (0-0.2); Basophils % (A) 3 %; Eosinophils % (A) 0 %; HCT 23.9 % (34.0-46.0); HGB 7.9 gm/dL (11.4-16.0); Lymphocytes # (A) 0.6 k/uL (1.0-4.8); Lymphocytes % (A) 3 %; MCH 33.7 pg (25.0-35.0); MCHC 33.1 g/dL (31.0-37.0); MCV 101.8 fL (80.0-100.0); Macrocytosis Moderate; Mean Platelet Volume 9.3; Monocytes # (A) 1.4 k/uL (0-1.0); Monocytes % (A) 6 %; Neutrophils # (A) 19.1 k/uL (1.3-7.7); Platelet Count 139 k/uL (150-450); RBC 2.35 m/uL (3.80-5.40); RDW 19.1 % (11.5-15.5)
[2020-05-15 06:01] LABS: Albumin 2.9 g/dL (3.5-5.0); Calcium 8.3 mg/dL (8.4-10.2); Potassium 5.1 mmol/L (3.5-5.1); Total Bilirubin 0.6 mg/dL (0.2-1.3); Total Protein 5.3 g/dL (6.3-8.2)
[2020-05-15 06:19] LABS: Glucose,Whole Blood 267 mg/dL (75-99)
[2020-05-15 06:24] LABS: Band Neutrophils % 11 %; Large Platelets Present; Metamyelocytes % 8 %; Myelocytes % 5 %; Neutrophils % (M) 69 %; Nucleated Red Blood Cells 2 /100 WBC (0-0); Total Cells Counted 200
[2020-05-15 06:25] LABS: Polychromasia Present
[2020-05-15 06:33] LABS: Basophils # (M) 0.22 k/uL (0-0.2); Lymphocytes # (M) 1.09 k/uL (1.0-4.8); Metamyelocytes # (M) 1.74 k/uL (0); Monocytes # (M) 0.65 k/uL (0-1.0); Myelocytes # (M) 1.09 k/uL (0); WBC 21.8 k/uL (3.8-10.6)
[2020-05-15] MEDS: INSULIN ASPART (NovoLOG) 100 UNIT/ML VIAL SQ SCH ×6 (07:01→21:21)
[2020-05-15] MEDS: ALBUTEROL HFA INHALER INHALATION PRN ×2 (08:34→12:31)
[2020-05-15] MEDS: SYMBICORT 160-4.5 MCG INHALER INHALATION SCH ×2 (08:35→21:16)
[2020-05-15] MEDS: PANTOPRAZOLE 40 MG TABLET PO SCH (09:26)
[2020-05-15] MEDS: amLODIPine 10 MG TAB PO SCH (09:27)
[2020-05-15] MEDS: APIXABAN 5 MG TAB PO SCH ×2 (09:27→21:27)
[2020-05-15] MEDS: ISOSORBIDE MONONITRATE ER 30 MG TAB.ER.24H PO SCH (09:29)
[2020-05-15] MEDS: LEVOTHYROXINE 88 MCG TAB PO SCH (09:29)
[2020-05-15] MEDS: BUMETANIDE 1 MG TAB PO SCH ×2 (09:29→21:27)
[2020-05-15] MEDS: CYANOCOBALAMIN 500 MCG TAB PO SCH (09:29)
[2020-05-15] MEDS: atenoloL 25 MG TAB PO SCH (09:29)
[2020-05-15] MEDS: FUROSEMIDE 40 MG TAB PO SCH (09:29)
[2020-05-15] MEDS: metFORMIN 500 MG TAB PO SCH ×2 (09:30→21:28)
[2020-05-15] MEDS: MONTELUKAST 10 MG TAB PO SCH (09:30)
[2020-05-15] MEDS: POTASSIUM CHLORIDE ER 20 MEQ TAB.ER PO SCH ×2 (09:30→21:29)
[2020-05-15] MEDS: lisinopriL 20 MG TAB PO SCH (09:30)
[2020-05-15] MEDS: FLUoxetine HCL 20 MG CAP PO SCH (09:30)
[2020-05-15] MEDS: METOPROLOL TARTRATE 25 MG TAB PO SCH ×2 (09:30→21:28)
[2020-05-15] MEDS: NON FORMULARY DRUG (Dapagliflozin Propanediol [Farxiga] 5 MG Tablet) PO SCH (09:31)
[2020-05-15] MEDS: INSULIN DETEMIR (LEVEMIR) 100 UNIT/ML SYR SQ SCH ×3 (10:02→21:28)
[2020-05-15] MEDS: CLOTRIMAZOLE/BETAMETH 1-0.05% CREAM 45 GM TUBE TOPICAL SCH ×2 (10:35→21:27)
[2020-05-15] MEDS: SODIUM CHLORIDE 0.9% 1,000 ML IV SCH (10:35)
--- NOTE | 2020-05-15 10:42 | ECHOF ---
Referral Reason:elevated troponin MEASUREMENTS -------- HEIGHT: 154.9 cm WEIGHT: 72.1 kg BP: RVIDd: 2.3 cm (< 3.3) IVSd: 1.5 cm (0.6 - 1.1) LVIDd: 2.9 cm (3.9 - 5.3) LVPWd: 1.6 cm (0.6 - 1.1) IVSs: 1.8 cm LVIDs: 1.3 cm LVPWs: 1.8 cm LA Diam: 1.3 cm (2.7 - 3.8) LAESV Index (A-L): 32.40 ml/m Ao Diam: 2.6 cm (2.0 - 3.7) AV Cusp: 1.6 cm (1.5 - 2.6) LA Diam: 3.3 cm (2.7 - 3.8) AR PHT: 367 ms FINDINGS -------- Atrial fibrillation. This was a technically adequate study. The cavity size is decreased. There is moderate concentric left ventricular hypertrophy. Overall left ventricular systolic function is normal with, an EF between 60 - 65 %. LVOT turbulence noted. The right ventricle is normal in size. LA is midly dilated 29-33ml/m2. The right atrial size is normal. The aortic valve is trileaflet and appears structurally normal. There is mild aortic regurgitation. The mitral valve is normal. The mitral valve leaflets are mildly thickened. Moderate mitral regur gitation is present. The tricuspid valve appears structurally normal. Moderate tricuspid regurgitation present. There is moderate pulmonary hypertension. The right ventricular systolic pressure, is not well quantified . There is no pulmonic regurgitation present. The aortic root size is normal. Normal inferior vena cava with normal inspiratory collapse consistent with estimated right atrial pre ssure of 5 mmHg. There is no pericardial effusion. CONCLUSIONS -------- 1. The cavity size is decreased. 2. There is moderate concentric left ventricular hypertrophy. 3. Overall left ventricular systolic function is normal with, an EF between 60 - 65 %. 4. LA is midly dilated 29-33ml/m2. 5. There is mild aortic regurgitation. 6. The mitral valve leaflets are mildly thickened. 7. Moderate mitral regurgitation is present. 8. Moderate tricuspid regurgitation present. 9. There is moderate pulmonary hypertension. 10. The right ventricular systolic pressure, as measured by Doppler, is {RVSP}. 11. There is no pericardial effusion. MAINTENANCE CONTROLLER: Rocio Alvarado RDCS
[2020-05-15 11:44] LABS: Glucose,Whole Blood 187 mg/dL (75-99)
[2020-05-15] MEDS: NYSTATIN 100,000 UNIT/GM POWD 15 GM TOPICAL SCH ×2 (12:28→21:29)
--- NOTE | 2020-05-15 12:31 | P.PN ---
Subjective 64-year-old female one of Dr. Aldridge patient with past medical history of breast cancer, hypertension, hyperlipidemia and COPD who apparently was hospitalized at [facility] 3 weeks ago for pneumonia CHF and A. fib and has done well has been seen oncology on regular basis apparently she was diagnosed with worsening dyspnea and shortness of breath found to have significant lymph nodes in the mediastinal area with left breast mass measured 1.7, 1.4 cm biopsy of the breasts and axilla on 02/17/2020 was consistent with invasive ductal carcinoma ER/WV negative, HER-2 1+, no evidence of metastasis disease lung infiltrate and pleural effusion had resolved a Chin was started on new adjuvant dose dense of chemotherapy in April 09 she had a prolonged hospitalization no April 11 till April 24 for CHF exacerbation and she had a pleural effusion suspected pneumonia 6 L of thoracentesis of the right side was taking she had also severe leukopenia and was in ICU for long time with WBC/ANC recover about 9 days after G-CSF injection was started. [place] that her respiratory symptoms more likely inflammatory and possible BOOP she ended up having second dose of chemotherapy with G-CSF on 05/02/2020. Patient presented to [facility] emergency department complaining of severe weakness and fatigue patient profound weakness fall on the floor was in able to move her arms and legs her went to lift her out of bed to go to the bathroom and that she is basically just felt to the floor she denies any fever, nausea headache dizziness no vomiting positive mild dyspnea and shortness of breath no chest pain positive mild abdominal pain with no dysuria diarrhea constipation swelling of the legs she has generalized weakness no focal deficit. At the presentation to [place] emergency department found to have elevated troponin with proBNP was 1999 with concern of pneumonia she was giving Levaquin and vancomycin and transfer to [facility] to be under cardiology and oncology. 05/15: Patient evaluated this morning, resting in bed comfortably. She denies any shortness of breath of chest pain. She echocardiogram yesterday that showed moderate concentric left ventricular hypertrophy, normal left ventricular systolic function with an EF between 60-65%, mild aortic regurgitation, moderate mitral regurgitation, moderate tricuspid regurgitation, and moderate pulmonary hypertension. Cardiology is on consult for elevated troponin, believes elevated troponins are not related to acute coronary syndrome. She continues on Levaquin for pneumonia. Glucose is noted to be slightly elevated, she started on 5 units NovoLog with meals plus sliding scale and hold for blood sugar less than 100. Objective - Vital Signs Vital signs: Vital Signs Temp 98.7 F 05/15/20 11:47 Pulse 80 05/15/20 11:47 Resp 18 05/15/20 11:47 BP 87/53 05/15/20 11:47 Pulse Ox 97 05/15/20 11:47 Intake & Output 05/14/20 05/15/20 05/15/20 18:59 06:59 18:59 Intake Total 465 300 Output Total 560 Balance 465 -560 300 Weight 72.121 kg 71.8 kg Intake: Intake, IV Titration 300 Amount Sodium Chloride 0.9% 1, 300 000 ml @ 75 mls/hr IV . [id number] [facility] Rx#:[id number] Oral 465 Output: Urine 560 Other: # Voids 1 1 - Exam General Appearance: Alert, cooperative, no distress, appears older than her age Neck HEENT: Supple, no lymphadenopathy, no thyroid enlargement, no carotid bruits. Lungs: Decreased breath some bilateral fine rhonchi positive mild expiratory wheezes with crackles in the right base. Chest Wall: Decrease expansion with deep inspiration no tenderness and no deformity was found on exam, no costochondral pain or discomfort. Heart: Regular rate and rhythm, S1, S2 normal, positive systolic murmur. Back: Symmetric, no curvature, ROM normal, no CVA tenderness. Abdomen: Soft, non-tender, bowel sounds active all four quadrants, no masses, no organomegaly. Extremities: 1+ edema and decreased pulses bilaterally with slight arthritis of both knees and hips. Pulses: 2+ and symmetric. Skin: Skin color, texture, tugor normal, no rashes or lesions. Neurologic: Alert oriented x3 cranial nerves II through XII intact, no motor deficit, generalized weakness - Labs CBC & Chem 7: 05/15/20 05:39 05/15/20 05:39 Labs: Abnormal Lab Results - Last 24 Hours (Table) 05/14/20 05/14/20 05/14/20 Range/Units 12:46 16:52 17:19 WBC (3.8-10.6) k/uL RBC (3.80-5.40) m/uL Hgb (11.4-16.0) gm/dL Hct (34.0-46.0) % MCV (80.0-100.0) fL RDW (11.5-15.5) % Plt Count (150-450) k/uL Neutrophils # (1.3-7.7) k/uL Neutrophils # (Manual) (1.3-7.7) k/uL Lymphocytes # (1.0-4.8) k/uL Monocytes # (0-1.0) k/uL Basophils # (0-0.2) k/uL Basophils # (Manual) (0-0.2) k/uL Metamyelocytes # (Man) (0) k/uL Myelocytes # (Manual) (0) k/uL Nucleated RBCs (0-0) /100 WBC Sodium (137-145) mmol/L BUN (7-17) mg/dL Glucose (74-99) mg/dL POC Glucose (mg/dL) 371 H (75-99) mg/dL Plasma Lactic Acid Jagdish (0.7-2.0) mmol/L Calcium (8.4-10.2) mg/dL AST (14-36) U/L ALT (4-34) U/L Alkaline Phosphatase (38-126) U/L Troponin I 0.036 H* 0.050 H* (0.000-0.034) ng/mL Total Protein (6.3-8.2) g/dL Albumin (3.5-5.0) g/dL 05/14/20 05/14/20 05/14/20 Range/Units 17:19 20:11 20:30 WBC (3.8-10.6) k/uL RBC (3.80-5.40) m/uL Hgb (11.4-16.0) gm/dL Hct (34.0-46.0) % MCV (80.0-100.0) fL RDW (11.5-15.5) % Plt Count (150-450) k/uL Neutrophils # (1.3-7.7) k/uL Neutrophils # (Manual) (1.3-7.7) k/uL Lymphocytes # (1.0-4.8) k/uL Monocytes # (0-1.0) k/uL Basophils # (0-0.2) k/uL Basophils # (Manual) (0-0.2) k/uL Metamyelocytes # (Man) (0) k/uL Myelocytes # (Manual) (0) k/uL Nucleated RBCs (0-0) /100 WBC Sodium (137-145) mmol/L BUN (7-17) mg/dL Glucose (74-99) mg/dL POC Glucose (mg/dL) 389 H (75-99) mg/dL Plasma Lactic Acid Jagdish 3.7 H* 5.3 H* (0.7-2.0) mmol/L Calcium (8.4-10.2) mg/dL AST (14-36) U/L ALT (4-34) U/L Alkaline Phosphatase (38-126) U/L Troponin I (0.000-0.034) ng/mL Total Protein (6.3-8.2) g/dL Albumin (3.5-5.0) g/dL 05/14/20 05/15/20 05/15/20 Range/Units 23:13 02:08 05:39 WBC (3.8-10.6) k/uL RBC (3.80-5.40) m/uL Hgb (11.4-16.0) gm/dL Hct (34.0-46.0) % MCV (80.0-100.0) fL RDW (11.5-15.5) % Plt Count (150-450) k/uL Neutrophils # (1.3-7.7) k/uL Neutrophils # (Manual) (1.3-7.7) k/uL Lymphocytes # (1.0-4.8) k/uL Monocytes # (0-1.0) k/uL Basophils # (0-0.2) k/uL Basophils # (Manual) (0-0.2) k/uL Metamyelocytes # (Man) (0) k/uL Myelocytes # (Manual) (0) k/uL Nucleated RBCs (0-0) /100 WBC Sodium (137-145) mmol/L BUN (7-17) mg/dL Glucose (74-99) mg/dL POC Glucose (mg/dL) (75-99) mg/dL Plasma Lactic Acid Jagdish 5.0 H* 3.0 H* (0.7-2.0) mmol/L Calcium (8.4-10.2) mg/dL AST (14-36) U/L ALT (4-34) U/L Alkaline Phosphatase (38-126) U/L Troponin I 0.044 H* (0.000-0.034) ng/mL Total Protein (6.3-8.2) g/dL Albumin (3.5-5.0) g/dL 05/15/20 05/15/20 05/15/20 Range/Units 05:39 05:39 06:17 WBC 21.8 H (3.8-10.6) k/uL RBC 2.35 L (3.80-5.40) m/uL Hgb 7.9 L (11.4-16.0) gm/dL Hct 23.9 L (34.0-46.0) % MCV 101.8 H (80.0-100.0) fL RDW 19.1 H (11.5-15.5) % Plt Count 139 L (150-450) k/uL Neutrophils # 19.1 H (1.3-7.7) k/uL Neutrophils # (Manual) 17.40 H (1.3-7.7) k/uL Lymphocytes # 0.6 L (1.0-4.8) k/uL Monocytes # 1.4 H (0-1.0) k/uL Basophils # 0.7 H (0-0.2) k/uL Basophils # (Manual) 0.22 H (0-0.2) k/uL Metamyelocytes # (Man) 1.74 H (0) k/uL Myelocytes # (Manual) 1.09 H (0) k/uL Nucleated RBCs 2 H (0-0) /100 WBC Sodium 134 L (137-145) mmol/L BUN 31 H (7-17) mg/dL Glucose 246 H (74-99) mg/dL POC Glucose (mg/dL) 267 H (75-99) mg/dL Plasma Lactic Acid Jagdish (0.7-2.0) mmol/L Calcium 8.3 L (8.4-10.2) mg/dL AST 91 H (14-36) U/L ALT 87 H (4-34) U/L Alkaline Phosphatase 234 H (38-126) U/L Troponin I (0.000-0.034) ng/mL Total Protein 5.3 L (6.3-8.2) g/dL Albumin 2.9 L (3.5-5.0) g/dL 05/15/20 Range/Units 11:42 WBC (3.8-10.6) k/uL RBC (3.80-5.40) m/uL Hgb (11.4-16.0) gm/dL Hct (34.0-46.0) % MCV (80.0-100.0) fL RDW (11.5-15.5) % Plt Count (150-450) k/uL Neutrophils # (1.3-7.7) k/uL Neutrophils # (Manual) (1.3-7.7) k/uL Lymphocytes # (1.0-4.8) k/uL Monocytes # (0-1.0) k/uL Basophils # (0-0.2) k/uL Basophils # (Manual) (0-0.2) k/uL Metamyelocytes # (Man) (0) k/uL Myelocytes # (Manual) (0) k/uL Nucleated RBCs (0-0) /100 WBC Sodium (137-145) mmol/L BUN (7-17) mg/dL Glucose (74-99) mg/dL POC Glucose (mg/dL) 187 H (75-99) mg/dL Plasma Lactic Acid Jagdish (0.7-2.0) mmol/L Calcium (8.4-10.2) mg/dL AST (14-36) U/L ALT (4-34) U/L Alkaline Phosphatase (38-126) U/L Troponin I (0.000-0.034) ng/mL Total Protein (6.3-8.2) g/dL Albumin (3.5-5.0) g/dL Assessment and Plan Plan: 1 non-ST AL: With elevated troponin. cardiology on consult, echocardiogram completed, repeat CK with troponin along with BMP in the next 24 hours repeat EKG keep watching patient for any abnormal finding on arrhythmia. 2 right-sided pneumonia: Most likely gram-negative specially with recent history of neutropenia post chemotherapy, patient was giving 1 g of Vanco along with Levaquin will consult pulmonary patient might require smaller dose of steroid as well. 3 right-sided pleural effusion: After large pleural effusion with 90 to removed recently patient is doing well at this point need to be watch over time. 4 severe generalized weakness most likely constitutional symptom secondary to chemotherapy along with her cancer and management overall continue supportive care physical therapy and occupational therapy. 5 chronic history of A. fib with RVR: Pulse rates under control currently patient will remain on atenolol 25 mg daily. Still on Eliquis 5 mg twice a day as well. 6 history of breast cancer been treated with chemotherapy with reaction on side effect of chemotherapy. 7 type 2 diabetes on insulin: Continue patient on Levemir along with Accu-Chek sliding scales coverage still on metformin as well. 8 history of COPD: Remain on Symbicort along with DuoNeb and multiple a cast and supportive O2. 9 hypothyroidism: Continue patient on levothyroxine 175 g daily. 10 GI prophylaxis: Patient to continue on pantoprazole 40 mg daily. 11 severe lactic acidosis: Continue supportive care as well continue to treat underlying infection with IV antibiotics repeat lactic acid after hydration and antibiotic use. 12 hypertension: Was well controlled on atenolol, Norvasc 10 mg daily, Zestril 20 mg daily. 13 diastolic congestive heart failure: Remain on Lasix and lisinopril. 14 DVT prophylaxis: Remain on anticoagulation. CODE STATUS: Full code. Admit patient to the inpatient service for more than 2 night stay. The above impression and plan of care have been discussed and directed by signing physician. Luzma Ivey nurse practitioner acting as scribe for signing physician.
--- NOTE | 2020-05-15 12:42 | P.PN ---
Subjective Progress Note Date: 05/15/20 Principal diagnosis: Weakness, elevated troponin. S/P 2 cycles of neoadjuvant AC with GCSF for breast cancer In f/u today pt is noted to be SOB at rest, 13L NC, she denies chest pain, cough, sputum production, she cannot walk without being SOB. She is eating and drinking, no fever, nausea. Objective - Vital Signs Vital signs: Vital Signs Temp 98.7 F 05/15/20 11:47 Pulse 80 05/15/20 11:47 Resp 18 05/15/20 11:47 BP 87/53 05/15/20 11:47 Pulse Ox 97 05/15/20 11:47 Intake & Output 05/14/20 05/15/20 05/15/20 18:59 06:59 18:59 Intake Total 465 300 Output Total 560 Balance 465 -560 300 Weight 72.121 kg 71.8 kg Intake: Intake, IV Titration 300 Amount Sodium Chloride 0.9% 1, 300 000 ml @ 75 mls/hr IV . [id number] [facility] Rx#:[id number] Oral 465 Output: Urine 560 Other: # Voids 1 1 - Constitutional General appearance: Present: cooperative, mild distress, obese - EENT Eyes: Present: anicteric sclerae, EOMI ENT: Present: hearing grossly normal, normal oropharynx - Respiratory Respiratory: bilateral: diminished - Cardiovascular Rhythm: irregularly irregular Heart sounds: normal: S1, S2 Abnormal Heart Sounds: Absent: systolic murmur, diastolic murmur, rub, S3 Gal lop, S4 Gallop, click, other - Peripheral edema leg Peripheral Edema: bilateral: None - Gastrointestinal General gastrointestinal: Present: normal bowel sounds, soft - Integumentary Integumentary: Present: pale - Neurologic Neurologic: Present: CNII-XII intact - Musculoskeletal Musculoskeletal: Present: generalized weakness, strength equal bilaterally - Psychiatric Psychiatric: Present: A&O x's 3, appropriate affect, intact judgment & insight - Labs CBC & Chem 7: 05/15/20 05:39 05/15/20 05:39 Labs: Abnormal Lab Results - Last 24 Hours (Table) 05/14/20 05/14/20 05/14/20 Range/Units 12:46 16:52 17:19 WBC (3.8-10.6) k/uL RBC (3.80-5.40) m/uL Hgb (11.4-16.0) gm/dL Hct (34.0-46.0) % MCV (80.0-100.0) fL RDW (11.5-15.5) % Plt Count (150-450) k/uL Neutrophils # (1.3-7.7) k/uL Neutrophils # (Manual) (1.3-7.7) k/uL Lymphocytes # (1.0-4.8) k/uL Monocytes # (0-1.0) k/uL Basophils # (0-0.2) k/uL Basophils # (Manual) (0-0.2) k/uL Metamyelocytes # (Man) (0) k/uL Myelocytes # (Manual) (0) k/uL Nucleated RBCs (0-0) /100 WBC Sodium (137-145) mmol/L BUN (7-17) mg/dL Glucose (74-99) mg/dL POC Glucose (mg/dL) 371 H (75-99) mg/dL Plasma Lactic Acid Jagdish (0.7-2.0) mmol/L Calcium (8.4-10.2) mg/dL AST (14-36) U/L ALT (4-34) U/L Alkaline Phosphatase (38-126) U/L Troponin I 0.036 H* 0.050 H* (0.000-0.034) ng/mL Total Protein (6.3-8.2) g/dL Albumin (3.5-5.0) g/dL 05/14/20 05/14/20 05/14/20 Range/Units 17:19 20:11 20:30 WBC (3.8-10.6) k/uL RBC (3.80-5.40) m/uL Hgb (11.4-16.0) gm/dL Hct (34.0-46.0) % MCV (80.0-100.0) fL RDW (11.5-15.5) % Plt Count (150-450) k/uL Neutrophils # (1.3-7.7) k/uL Neutrophils # (Manual) (1.3-7.7) k/uL Lymphocytes # (1.0-4.8) k/uL Monocytes # (0-1.0) k/uL Basophils # (0-0.2) k/uL Basophils # (Manual) (0-0.2) k/uL Metamyelocytes # (Man) (0) k/uL Myelocytes # (Manual) (0) k/uL Nucleated RBCs (0-0) /100 WBC Sodium (137-145) mmol/L BUN (7-17) mg/dL Glucose (74-99) mg/dL POC Glucose (mg/dL) 389 H (75-99) mg/dL Plasma Lactic Acid Jagdish 3.7 H* 5.3 H* (0.7-2.0) mmol/L Calcium (8.4-10.2) mg/dL AST (14-36) U/L ALT (4-34) U/L Alkaline Phosphatase (38-126) U/L Troponin I (0.000-0.034) ng/mL Total Protein (6.3-8.2) g/dL Albumin (3.5-5.0) g/dL 05/14/20 05/15/20 05/15/20 Range/Units 23:13 02:08 05:39 WBC (3.8-10.6) k/uL RBC (3.80-5.40) m/uL Hgb (11.4-16.0) gm/dL Hct (34.0-46.0) % MCV (80.0-100.0) fL RDW (11.5-15.5) % Plt Count (150-450) k/uL Neutrophils # (1.3-7.7) k/uL Neutrophils # (Manual) (1.3-7.7) k/uL Lymphocytes # (1.0-4.8) k/uL Monocytes # (0-1.0) k/uL Basophils # (0-0.2) k/uL Basophils # (Manual) (0-0.2) k/uL Metamyelocytes # (Man) (0) k/uL Myelocytes # (Manual) (0) k/uL Nucleated RBCs (0-0) /100 WBC Sodium (137-145) mmol/L BUN (7-17) mg/dL Glucose (74-99) mg/dL POC Glucose (mg/dL) (75-99) mg/dL Plasma Lactic Acid Jagdish 5.0 H* 3.0 H* (0.7-2.0) mmol/L Calcium (8.4-10.2) mg/dL AST (14-36) U/L ALT (4-34) U/L Alkaline Phosphatase (38-126) U/L Troponin I 0.044 H* (0.000-0.034) ng/mL Total Protein (6.3-8.2) g/dL Albumin (3.5-5.0) g/dL 05/15/20 05/15/20 05/15/20 Range/Units 05:39 05:39 06:17 WBC 21.8 H (3.8-10.6) k/uL RBC 2.35 L (3.80-5.40) m/uL Hgb 7.9 L (11.4-16.0) gm/dL Hct 23.9 L (34.0-46.0) % MCV 101.8 H (80.0-100.0) fL RDW 19.1 H (11.5-15.5) % Plt Count 139 L (150-450) k/uL Neutrophils # 19.1 H (1.3-7.7) k/uL Neutrophils # (Manual) 17.40 H (1.3-7.7) k/uL Lymphocytes # 0.6 L (1.0-4.8) k/uL Monocytes # 1.4 H (0-1.0) k/uL Basophils # 0.7 H (0-0.2) k/uL Basophils # (Manual) 0.22 H (0-0.2) k/uL Metamyelocytes # (Man) 1.74 H (0) k/uL Myelocytes # (Manual) 1.09 H (0) k/uL Nucleated RBCs 2 H (0-0) /100 WBC Sodium 134 L (137-145) mmol/L BUN 31 H (7-17) mg/dL Glucose 246 H (74-99) mg/dL POC Glucose (mg/dL) 267 H (75-99) mg/dL Plasma Lactic Acid Jagdish (0.7-2.0) mmol/L Calcium 8.3 L (8.4-10.2) mg/dL AST 91 H (14-36) U/L ALT 87 H (4-34) U/L Alkaline Phosphatase 234 H (38-126) U/L Troponin I (0.000-0.034) ng/mL Total Protein 5.3 L (6.3-8.2) g/dL Albumin 2.9 L (3.5-5.0) g/dL 05/15/20 Range/Units 11:42 WBC (3.8-10.6) k/uL RBC (3.80-5.40) m/uL Hgb (11.4-16.0) gm/dL Hct (34.0-46.0) % MCV (80.0-100.0) fL RDW (11.5-15.5) % Plt Count (150-450) k/uL Neutrophils # (1.3-7.7) k/uL Neutrophils # (Manual) (1.3-7.7) k/uL Lymphocytes # (1.0-4.8) k/uL Monocytes # (0-1.0) k/uL Basophils # (0-0.2) k/uL Basophils # (Manual) (0-0.2) k/uL Metamyelocytes # (Man) (0) k/uL Myelocytes # (Manual) (0) k/uL Nucleated RBCs (0-0) /100 WBC Sodium (137-145) mmol/L BUN (7-17) mg/dL Glucose (74-99) mg/dL POC Glucose (mg/dL) 187 H (75-99) mg/dL Plasma Lactic Acid Jagdish (0.7-2.0) mmol/L Calcium (8.4-10.2) mg/dL AST (14-36) U/L ALT (4-34) U/L Alkaline Phosphatase (38-126) U/L Troponin I (0.000-0.034) ng/mL Total Protein (6.3-8.2) g/dL Albumin (3.5-5.0) g/dL - Imaging and Cardiology ECHO report reviewed Assessment and Plan (1) Elevated troponin Narrative/Plan: Cardiology consulted. ECHO done, nothing to account for pt symptoms. EKG is pending Current Visit: Yes Status: Acute Priority: High Code(s): R77.8 - OTHER SPECIFIED ABNORMALITIES OF PLASMA PROTEINS SNOMED Code(s): 862058556 (2) Pneumonia Narrative/Plan: Chest x-ray suspicious for the same. Patient recently had a prolonged hospitalization and bout with CHF and pneumonia with a 6 L rt sided thoracentesis (non-malignant) Patient is currently on antibiotics. She has progressive SOB overnight O2 up to 13 L currently, pt visibly SOB. Requested CTA, EKG pending. Pulm, ID and Internal Medicine following. Current Visit: Yes Status: Acute Priority: High Code(s): J18.9 - PNEUMONIA, UNSPECIFIED ORGANISM SNOMED Code(s): 701813163 (3) Breast cancer Narrative/Plan: Patient has a history of stage II a breast cancer. She is status post 2 cycles of neoadjuvant treatment. She is on cardiotoxic therapy, Adriamycin. She was recently worked up pretty extensively at [facility] during prolonged hospitalization there. Case was reviewed with both Pulmonary and Cardiology prior to proceeding with second cycle. ECHO shows LVEF of 60-65% Cont to work up of SOB. Will follow with pt hospitalization. She will likely not be getting her next sched cycle of treatment tomorrow. Current Visit: Yes Status: Acute Priority: High Code(s): C50.919 - MALIGNANT NEOPLASM OF UNSP SITE OF UNSPECIFIED FEMALE BREAST SNOMED Code(s): 146368456 (4) CHF (congestive heart failure) Current Visit: No Status: Chronic Priority: Medium Code(s): I50.9 - HEART FAILURE, UNSPECIFIED SNOMED Code(s): 41826815 Plan: Pt prefers nystatin powder for skin fold irritation/yeast-ordered for her
--- NOTE | 2020-05-15 14:55 | CT ---
EXAMINATION TYPE: CT angio chest DATE OF EXAM: 05/15/2020 COMPARISON: None HISTORY: shortness of breath. CT DLP: 462.7 mGycm CONTRAST: CT chest with contrast and 3D reconstruction with MIP imaging is performed with IV Contrast, patient injected with 62 mL of Isovue 370. Contrast-enhanced CT of the chest was performed through the course of the pulmonary arteries with hector g and mediastinal window settings submitted. 3D reconstruction with MIP imaging was also performed. PULMONARY ARTERIES: The pulmonary arteries and their major tributaries are patent. I do not see del dence for sizable filling defect to suggest pulmonary embolic process. LUNGS: Moderate bilateral pleural effusions as well as patchy infiltrates throughout both lung mcnamara and perihilar regions felt to reflect underlying pneumonia. MEDIASTINUM: Thoracic aorta is of normal caliber,however, evaluation is limited given timing of the contrast bolus. If there is concern for thoracic aortic pathology consider CHRISTAL. Correlate clinicall y . The heart is not enlarged. No evidence for mediastinal mass. No mediastinal lymph nodes greater than 1cm. HILAR STRUCTURES: No evidence for mass. No hilar lymph nodes greater than 1 cm. UPPER ABDOMEN: No significant abnormality is seen. IMPRESSION: 1. No evidence for Pulmonary embolism at this time. 2. Moderate bilateral pleural effusions as well as patchy infiltrates throughout both lung mcnamara and perihilar regions felt to reflect underlying pneumonia.
--- NOTE | 2020-05-15 15:25 | P.PN ---
Subjective Progress Note Date: 05/15/20 HISTORY OF PRESENT ILLNESS: Patient examined this morning at the bedside. She denies chest pain or pressure. Denies shortness of breath at rest. She reports mild shortness of breath with exertion . She is on 15 L nasal cannula. Blood pressure 100/62. Heart rate in the 80s. Echocardiogram completed revealed ejection fraction 60-65%, mild aortic regurgitation, moderate mitral regurgitation, moderate tricuspid regurgitation, and moderate pulmonary hypertension. PHYSICAL EXAM: VITAL SIGNS: Reviewed. GENERAL: Well-developed in no acute distress. NECK: Supple. No JVD or thyromegaly LUNGS: Respirations even and unlabored. Lungs diminished. HEART: Regular rate and rhythm. S1 and S2 heard. Systolic murmur noted. EXTREMITIES: Normal range of motion. No clubbing or cyanosis. Peripheral pulses intact. No lower extremity edema ASSESSMENT: Weakness and fatigue Abnormal troponins, not suggestive of myocardial injury Chronic persistent atrial fibrillation PLAN: An acute coronary event has been ruled out Continue current cardiac medications No further workup from a cardiac standpoint We will sign off. Please reconsult if needed Nurse practitioner note has been reviewed by physician. Signing provider agrees with the documented findings, assessment, and plan of care. Objective - Vital Signs Vital signs: Vital Signs Temp 98.7 F 05/15/20 11:47 Pulse 80 05/15/20 14:00 Resp 18 05/15/20 14:00 BP 87/53 05/15/20 11:47 Pulse Ox 97 05/15/20 11:47 Intake & Output 05/14/20 05/15/20 05/15/20 18:59 06:59 18:59 Intake Total 465 300 Output Total 560 Balance 465 -560 300 Weight 72.121 kg 71.8 kg Intake: Intake, IV Titration 300 Amount Sodium Chloride 0.9% 1, 300 000 ml @ 75 mls/hr IV . [id number] [facility] Rx#:[id number] Oral 465 Output: Urine 560 Other: # Voids 1 1 - Labs CBC & Chem 7: 05/15/20 05:39 05/15/20 05:39 Labs: Abnormal Lab Results - Last 24 Hours (Table) 05/14/20 05/14/20 05/14/20 Range/Units 16:52 17:19 17:19 WBC (3.8-10.6) k/uL RBC (3.80-5.40) m/uL Hgb (11.4-16.0) gm/dL Hct (34.0-46.0) % MCV (80.0-100.0) fL RDW (11.5-15.5) % Plt Count (150-450) k/uL Neutrophils # (1.3-7.7) k/uL Neutrophils # (Manual) (1.3-7.7) k/uL Lymphocytes # (1.0-4.8) k/uL Monocytes # (0-1.0) k/uL Basophils # (0-0.2) k/uL Basophils # (Manual) (0-0.2) k/uL Metamyelocytes # (Man) (0) k/uL Myelocytes # (Manual) (0) k/uL Nucleated RBCs (0-0) /100 WBC Sodium (137-145) mmol/L BUN (7-17) mg/dL Glucose (74-99) mg/dL POC Glucose (mg/dL) 371 H (75-99) mg/dL Plasma Lactic Acid Jagdish 3.7 H* (0.7-2.0) mmol/L Calcium (8.4-10.2) mg/dL AST (14-36) U/L ALT (4-34) U/L Alkaline Phosphatase (38-126) U/L Troponin I 0.050 H* (0.000-0.034) ng/mL Total Protein (6.3-8.2) g/dL Albumin (3.5-5.0) g/dL 05/14/20 05/14/20 05/14/20 Range/Units 20:11 20:30 23:13 WBC (3.8-10.6) k/uL RBC (3.80-5.40) m/uL Hgb (11.4-16.0) gm/dL Hct (34.0-46.0) % MCV (80.0-100.0) fL RDW (11.5-15.5) % Plt Count (150-450) k/uL Neutrophils # (1.3-7.7) k/uL Neutrophils # (Manual) (1.3-7.7) k/uL Lymphocytes # (1.0-4.8) k/uL Monocytes # (0-1.0) k/uL Basophils # (0-0.2) k/uL Basophils # (Manual) (0-0.2) k/uL Metamyelocytes # (Man) (0) k/uL Myelocytes # (Manual) (0) k/uL Nucleated RBCs (0-0) /100 WBC Sodium (137-145) mmol/L BUN (7-17) mg/dL Glucose (74-99) mg/dL POC Glucose (mg/dL) 389 H (75-99) mg/dL Plasma Lactic Acid Jagdish 5.3 H* 5.0 H* (0.7-2.0) mmol/L Calcium (8.4-10.2) mg/dL AST (14-36) U/L ALT (4-34) U/L Alkaline Phosphatase (38-126) U/L Troponin I (0.000-0.034) ng/mL Total Protein (6.3-8.2) g/dL Albumin (3.5-5.0) g/dL 05/15/20 05/15/20 05/15/20 Range/Units 02:08 05:39 05:39 WBC 21.8 H (3.8-10.6) k/uL RBC 2.35 L (3.80-5.40) m/uL Hgb 7.9 L (11.4-16.0) gm/dL Hct 23.9 L (34.0-46.0) % MCV 101.8 H (80.0-100.0) fL RDW 19.1 H (11.5-15.5) % Plt Count 139 L (150-450) k/uL Neutrophils # 19.1 H (1.3-7.7) k/uL Neutrophils # (Manual) 17.40 H (1.3-7.7) k/uL Lymphocytes # 0.6 L (1.0-4.8) k/uL Monocytes # 1.4 H (0-1.0) k/uL Basophils # 0.7 H (0-0.2) k/uL Basophils # (Manual) 0.22 H (0-0.2) k/uL Metamyelocytes # (Man) 1.74 H (0) k/uL Myelocytes # (Manual) 1.09 H (0) k/uL Nucleated RBCs 2 H (0-0) /100 WBC Sodium (137-145) mmol/L BUN (7-17) mg/dL Glucose (74-99) mg/dL POC Glucose (mg/dL) (75-99) mg/dL Plasma Lactic Acid Jagdish 3.0 H* (0.7-2.0) mmol/L Calcium (8.4-10.2) mg/dL AST (14-36) U/L ALT (4-34) U/L Alkaline Phosphatase (38-126) U/L Troponin I 0.044 H* (0.000-0.034) ng/mL Total Protein (6.3-8.2) g/dL Albumin (3.5-5.0) g/dL 05/15/20 05/15/20 05/15/20 Range/Units 05:39 06:17 11:42 WBC (3.8-10.6) k/uL RBC (3.80-5.40) m/uL Hgb (11.4-16.0) gm/dL Hct (34.0-46.0) % MCV (80.0-100.0) fL RDW (11.5-15.5) % Plt Count (150-450) k/uL Neutrophils # (1.3-7.7) k/uL Neutrophils # (Manual) (1.3-7.7) k/uL Lymphocytes # (1.0-4.8) k/uL Monocytes # (0-1.0) k/uL Basophils # (0-0.2) k/uL Basophils # (Manual) (0-0.2) k/uL Metamyelocytes # (Man) (0) k/uL Myelocytes # (Manual) (0) k/uL Nucleated RBCs (0-0) /100 WBC Sodium 134 L (137-145) mmol/L BUN 31 H (7-17) mg/dL Glucose 246 H (74-99) mg/dL POC Glucose (mg/dL) 267 H 187 H (75-99) mg/dL Plasma Lactic Acid Jagdish (0.7-2.0) mmol/L Calcium 8.3 L (8.4-10.2) mg/dL AST 91 H (14-36) U/L ALT 87 H (4-34) U/L Alkaline Phosphatase 234 H (38-126) U/L Troponin I (0.000-0.034) ng/mL Total Protein 5.3 L (6.3-8.2) g/dL Albumin 2.9 L (3.5-5.0) g/dL
[2020-05-15 17:19] LABS: Glucose,Whole Blood 162 mg/dL (75-99)
[2020-05-15 20:49] LABS: Glucose,Whole Blood 130 mg/dL (75-99)
[2020-05-15] MEDS: ATORVASTATIN 10 MG TAB PO SCH (21:27)
[2020-05-15] MEDS: LEVOFLOXACIN 500 MG TAB PO SCH (21:28)
[2020-05-15] MEDS: OLANZapine 5 MG TAB PO SCH (21:29)
[2020-05-15] MEDS: ALPRAZolam 0.5 MG TAB PO PRN (21:35)
[2020-05-15] MEDS: IBUPROFEN 400 MG TAB PO PRN (21:35)
[2020-05-16] MEDS: PANTOPRAZOLE 40 MG TABLET PO SCH (06:17)
[2020-05-16] MEDS: SODIUM CHLORIDE 0.9% 1,000 ML IV SCH (06:19)
[2020-05-16] MEDS: INSULIN ASPART (NovoLOG) 100 UNIT/ML VIAL SQ SCH ×7 (07:20→21:29)
[2020-05-16 07:30] LABS: Glucose,Whole Blood 44 mg/dL (75-99)
[2020-05-16 07:31] LABS: Glucose,Whole Blood 53 mg/dL (75-99)
[2020-05-16 08:00] LABS: Glucose,Whole Blood 65 mg/dL (75-99)
[2020-05-16 08:20] LABS: Glucose,Whole Blood 61 mg/dL (75-99)
[2020-05-16] MEDS ORDERED: DEXTROSE 50% SYRINGE 50 ML IVP ONE (08:21)
[2020-05-16] MEDS: SYMBICORT 160-4.5 MCG INHALER INHALATION SCH ×2 (08:31→21:28)
[2020-05-16] MEDS: ALBUTEROL HFA INHALER INHALATION PRN ×3 (08:31→21:29)
[2020-05-16 08:39] LABS: Glucose,Whole Blood 117 mg/dL (75-99)
[2020-05-16] MEDS: LEVOTHYROXINE 88 MCG TAB PO SCH (10:03)
[2020-05-16] MEDS: amLODIPine 10 MG TAB PO SCH (10:03)
[2020-05-16] MEDS: APIXABAN 5 MG TAB PO SCH (10:03)
[2020-05-16] MEDS: NON FORMULARY DRUG (Dapagliflozin Propanediol [Farxiga] 5 MG Tablet) PO SCH (10:03)
[2020-05-16] MEDS: FUROSEMIDE 40 MG TAB PO SCH (10:03)
[2020-05-16] MEDS: FLUoxetine HCL 20 MG CAP PO SCH (10:03)
[2020-05-16] MEDS: ISOSORBIDE MONONITRATE ER 30 MG TAB.ER.24H PO SCH (10:03)
[2020-05-16] MEDS: CYANOCOBALAMIN 500 MCG TAB PO SCH (10:03)
[2020-05-16] MEDS: BUMETANIDE 1 MG TAB PO SCH ×2 (10:03→21:28)
[2020-05-16] MEDS: POTASSIUM CHLORIDE ER 20 MEQ TAB.ER PO SCH ×2 (10:04→21:28)
[2020-05-16] MEDS: metFORMIN 500 MG TAB PO SCH ×2 (10:04→21:28)
[2020-05-16] MEDS: MONTELUKAST 10 MG TAB PO SCH (10:04)
[2020-05-16] MEDS: lisinopriL 20 MG TAB PO SCH (10:04)
[2020-05-16] MEDS: METOPROLOL TARTRATE 25 MG TAB PO SCH ×2 (10:04→21:28)
[2020-05-16] MEDS: NYSTATIN 100,000 UNIT/GM POWD 15 GM TOPICAL SCH ×2 (10:05→21:43)
[2020-05-16] MEDS: CLOTRIMAZOLE/BETAMETH 1-0.05% CREAM 45 GM TUBE TOPICAL SCH ×2 (10:05→21:33)
--- NOTE | 2020-05-16 10:08 | US ---
EXAMINATION TYPE: US chest DATE OF EXAM: 05/16/2020 COMPARISON: CT chest 05/15/2020 CLINICAL HISTORY: effusion . SOB TECHNIQUE: Targeted ultrasound of the posterior lower Bilateral EXAM MEASUREMENTS: Right Pleural Effusion pocket size: 2.3 cm Left Pleural Effusion pocket size: 6.9 cmlung tissue within window during inspiration Left skin surface to fluid distance: 4.3 cm Right side NOT marked for possible thoracentesis Left side marked for possible thoracentesis outside the dept. Pulmonologists are able to review the images in the patient?s EMR. IMPRESSIONS: Moderate left pleural effusion, patient's right pleural effusion seen on CT is not demon strated on posterior ultrasound imaging
[2020-05-16] MEDS: INSULIN DETEMIR (LEVEMIR) 100 UNIT/ML SYR SQ SCH ×2 (10:25→21:32)
--- NOTE | 2020-05-16 11:22 | CDI ---
Documentation Clarification Form Date: 05/16/2020 11:05:45 AM From: Conchita Argueta CCS, CCDS Phone: [phone] Admit Date: 05/15/2020 08:19:00 AM Patient Name: Kade Henao Visit Number: [id number] Discharge Date: ATTENTION: The Clinical Documentation Specialists (CDI) and [facility] Coding Staff appreciate your assistance in clarifying documentation. Please respond to the clarification below the line at the bottom and electronically sign. The CDI & [facility] Coding staff will review the response and follow-up if needed. Please note: Queries are made part of the Legal Health Record. If you have any questions, please contact the author of this message via ITS. Dr. Thomas Roberson: The patient presented with the following: Right side pneumonia, Right side small pleural effusion, Elevated Troponin (ACS ruled out by cardiology), Generalized weakness and Acute on Chronic Diastolic Heart Failure. Per 05/14 History & Physical: NSTEMI and right side Pneumonia likely gram negative. History/Risk Factors: Hypertensive Heart Disease with Chronic Diastolic Heart Failure, Breast Cancer status post 2 cycles of chemotherapy, Chronic Persistent Atrial Fibrillation, IDDM II, COPD, Pulmonary Hypertension & Regurgitation of Aortic, Mitral & Tricuspid valves. Clinical Indicators: Presented to the ED on 05/14 as a transfer from [facility] for mildly elevated troponins with weakness via EMS. Recently admitted & discharged from [facility] after being treated for pneumonia, atrial fibrillation and CHF. VS 05/15: T 97.6 - 97.5*, P 81, R 18, BP 91/60, PO 100 on 15L high flow O2 LAB 05/15: WBC 21.8^, Hgb 7.9*, Hct 23.9*, Pl Ct 139*, Neut 19.1^, Lymph 0.6*, Lactic Acid (05/14): 3.7^^, 5.0^^, 05/15: 3.0^^; Troponin 0.44^^, Total Protein 5.3*, Albumin 2.9*. 05/14 Blood culture: neg (preliminary) @ 24 hrs 05/14 CXR: Correlate for pneumonia, difficult to exclude effusion. 05/15 CT Chest: No PE, Moderate bilateral pleural effusions & patchy infiltrates bilateral lung mcnamara felt to be pneumonia. Treatment 05/14: INH Ventolin, INH Symbicort, IV Levaquin q24H, O2 4Lnc - 6Lnc - 15L high flow. 07/16: O2 15L high low, po Levaquin. In your professional opinion, please clarify if these findings signify one of the following conditions, whether the condition is POA, and cause, if known: Sepsis ruled out xx Sepsis ruled in Other, please specify Unable to determine Present on Admission x o Yes o No (Last Revision: August 2017) MTDD
[2020-05-16] MEDS: DEXTROSE 5%-0.9% NACL 1,000 ML IV SCH ×2 (11:31→22:57)
[2020-05-16 12:25] LABS: Glucose,Whole Blood 358 mg/dL (75-99)
--- NOTE | 2020-05-16 12:27 | P.CNPUL ---
History of Present Illness Reason for consult: dyspnea, hypoxemia Chief complaint: Shortness of breath, pleural effusion History of present illness: This is a 64-year-old female who was seen eval, patient admitted with a transfer from a neck in the hospital where she was presented with progressive weakness found to have elevated troponin, patient was advised to be transferred to [facility], patient has a prior significant history of A. fib with RVR and congestive heart failure likely diastolic failure was admitted at [facility] about 3 weeks ago, during evaluation she was found to have elevated BNP of over 2000, patient appears to have a diastolic heart failure eje ction fraction however 65%, computed tomography scan of the chest shows bilateral pleural effusion small to moderate, right-sided effusion is a small left-sided is about 6-7 cm in size, ultrasound of the chest has been reviewed IR has been consulted for thoracentesis, patient has been hypothermic with warming blanket are being ordered as well, she is still on supplemental oxygen with 15 L saturation is 91%,, blood cultures have been negative, Review of Systems All systems: negative Past Medical History Past Medical History: Cancer, Diabetes Mellitus, Hyperlipidemia, Hypertension, Skin Disorder, Thyroid Disorder Additional Past Medical History / Comment(s): vertigo, eczema, yeast infections in creases, left Breast cancer last chemo 05/07/20 History of Any Multi-Drug Resistant Organisms: MRSA Date of last positivie culture/infection: 06/2012 MDRO Source:: lungs Past Surgical History: Section, Cholecystectomy, Hysterectomy, Orthopedic Surgery Additional Past Surgical History / Comment(s): kenneth rotator cuff sugery, bunionectomy rt foot Past Anesthesia/Blood Transfusion Reactions: No Reported Reaction Past Psychological History: Anxiety Smoking Status: Former smoker Past Alcohol Use History: None Reported Past Drug Use History: None Reported - Past Family History Mother Family Medical History: No Reported History Father Family Medical History: Hypertension Medications and Allergies Home Medications Medication Instructions Recorded Confirmed Type Insulin Detemir [Levemir Flextouch] 45 units SQ BID 01/27/15 05/14/20 History Simvastatin [Zocor] 20 mg PO HS 01/27/15 05/14/20 History amLODIPine BESYLATE [Norvasc] 10 mg PO DAILY 01/27/15 05/14/20 History atenoloL [Tenormin] 25 mg PO DAILY 01/27/15 05/14/20 History Dapagliflozin Propanediol [Farxiga] 5 mg PO DAILY 01/29/15 05/14/20 History metFORMIN HCL 1,000 mg PO BID 10/11/15 05/14/20 History ALPRAZolam [Xanax] 0.5 mg PO DAILY PRN 05/14/20 05/14/20 History Albuterol Sulfate [Proair Hfa] 2 puff INHALATION Q6HR PRN 05/14/20 05/14/20 History Apixaban [Eliquis] 5 mg PO BID 05/14/20 05/14/20 History Bumetanide [Bumex] 1 mg PO BID 05/14/20 05/14/20 History Clotrimazole/Betameth Cream 1 applic TOPICAL BID 05/14/20 05/14/20 History [Lotrisone] Cyanocobalamin (Vitamin B-12) 1,000 mcg PO DAILY 05/14/20 05/14/20 History [Vitamin B-12] Dulaglutide [Trulicity] 0.75 mg SQ Q7D 05/14/20 05/14/20 History FLUoxetine HCL [PROzac] 40 mg PO DAILY 05/14/20 05/14/20 History FLUoxetine HCL [PROzac] 40 mg PO DAILY 05/14/20 05/14/20 History Fluticasone Propion/Salmeterol 1 puff INHALATION RT-BID 05/14/20 05/14/20 History [Wixela 500-50 Inhub] Furosemide [Lasix] 40 mg PO DAILY 05/14/20 05/14/20 History Ibuprofen 400 mg PO Q8H 05/14/20 05/14/20 History Isosorbide Mononitrate [Isosorbide 30 mg PO DAILY 05/14/20 05/14/20 History Mononitrate ER] Levothyroxine Sodium [Synthroid] 175 mcg PO DAILY 05/14/20 05/14/20 History Levothyroxine Sodium [Synthroid] 175 mcg PO DAILY 05/14/20 05/14/20 History Metoprolol Succinate [Toprol XL] 50 mg PO DAILY 05/14/20 History Metoprolol Tartrate 25 mg PO DAILY 05/14/20 05/14/20 History Montelukast [Singulair] 10 mg PO DAILY 05/14/20 05/14/20 History OLANZapine [ZyPREXA] 5 mg PO HS 05/14/20 05/14/20 History Omeprazole 20 mg PO DAILY 05/14/20 05/14/20 History Potassium Chloride ER [K-Dur ] 20 meq PO BID 05/14/20 05/14/20 History Psyllium Husk 100% [Metamucil 1 packet PO TID PRN 05/14/20 05/14/20 History Packet] lisinopriL [Zestril] 20 mg PO DAILY 05/14/20 05/14/20 History Allergies Allergy/AdvReac Type Severity Reaction Status Date / Time cefaclor [From Ceclor] Allergy Unknown Verified 05/14/20 09:24 clarithromycin [From Biaxin] Allergy Unknown Verified 05/14/20 09:24 Penicillins Allergy Unknown Verified 05/14/20 09:24 Sulfa (Sulfonamide Allergy Unknown Verified 05/14/20 09:24 Antibiotics) Physical Exam Vitals: Vital Signs Temp Pulse Resp BP BP Pulse Ox 05/16/20 11:25 91 20 121/62 91 L 05/16/20 10:41 95.3 F L 05/16/20 08:00 77 18 109/55 95 05/16/20 04:00 97.8 F 79 18 96/50 88 L 05/16/20 02:00 83 18 05/16/20 00:00 97.8 F 83 18 102/55 90 L 05/15/20 20:00 91 20 05/15/20 19:48 98.1 F 91 20 123/65 90 L 05/15/20 15:29 82 18 101/63 94 L 05/15/20 14:00 80 18 Intake and Output 05/15/20 05/16/20 05/16/20 22:59 06:59 14:59 Intake Total 1006 Output Total 300 Balance -300 1006 Intake: Oral 1006 Output: Urine 300 Other: Voiding Method Bedside Commode # Voids 1 - Constitutional General appearance: average body habitus - EENT Eyes: PERRLA Ears: bilateral: normal - Neck Carotids: bilateral: upstroke normal Thyroid: bilateral: normal size - Respiratory Respiratory: bilateral: CTA - Cardiovascular Rhythm: regular Heart sounds: normal: S1, S2 - Gastrointestinal General gastrointestinal: normal bowel sounds - Neurologic Neurologic: CNII-XII intact - Musculoskeletal Musculoskeletal: gait normal, generalized weakness - Psychiatric Psychiatric: A&O x's 3, appropriate affect, intact judgment & insight Results - Laboratory Findings CBC and BMP: 05/15/20 05:39 05/15/20 05:39 Abnormal lab findings: Abnormal Labs 05/14/20 05/14/20 05/14/20 11:27 12:46 16:52 WBC RBC Hgb Hct MCV RDW Plt Count Neutrophils # Neutrophils # (Manual) Lymphocytes # Monocytes # Basophils # Basophils # (Manual) Metamyelocytes # (Man) Myelocytes # (Manual) Nucleated RBCs Sodium BUN Glucose POC Glucose (mg/dL) 232 H 371 H Plasma Lactic Acid Jagdish Calcium AST ALT Alkaline Phosphatase Troponin I 0.036 H* Total Protein Albumin 05/14/20 05/14/20 05/14/20 17:19 17:19 20:11 WBC RBC Hgb Hct MCV RDW Plt Count Neutrophils # Neutrophils # (Manual) Lymphocytes # Monocytes # Basophils # Basophils # (Manual) Metamyelocytes # (Man) Myelocytes # (Manual) Nucleated RBCs Sodium BUN Glucose POC Glucose (mg/dL) Plasma Lactic Acid Jagdish 3.7 H* 5.3 H* Calcium AST ALT Alkaline Phosphatase Troponin I 0.050 H* Total Protein Albumin 05/14/20 05/14/20 05/15/20 20:30 23:13 02:08 WBC RBC Hgb Hct MCV RDW Plt Count Neutrophils # Neutrophils # (Manual) Lymphocytes # Monocytes # Basophils # Basophils # (Manual) Metamyelocytes # (Man) Myelocytes # (Manual) Nucleated RBCs Sodium BUN Glucose POC Glucose (mg/dL) 389 H Plasma Lactic Acid Jagdish 5.0 H* 3.0 H* Calcium AST ALT Alkaline Phosphatase Troponin I Total Protein Albumin 05/15/20 05/15/20 05/15/20 05:39 05:39 05:39 WBC 21.8 H RBC 2.35 L Hgb 7.9 L Hct 23.9 L MCV 101.8 H RDW 19.1 H Plt Count 139 L Neutrophils # 19.1 H Neutrophils # (Manual) 17.40 H Lymphocytes # 0.6 L Monocytes # 1.4 H Basophils # 0.7 H Basophils # (Manual) 0.22 H Metamyelocytes # (Man) 1.74 H Myelocytes # (Manual) 1.09 H Nucleated RBCs 2 H Sodium 134 L BUN 31 H Glucose 246 H POC Glucose (mg/dL) Plasma Lactic Acid Jagdish Calcium 8.3 L AST 91 H ALT 87 H Alkaline Phosphatase 234 H Troponin I 0.044 H* Total Protein 5.3 L Albumin 2.9 L 05/15/20 05/15/20 05/15/20 06:17 11:42 17:06 WBC RBC Hgb Hct MCV RDW Plt Count Neutrophils # Neutrophils # (Manual) Lymphocytes # Monocytes # Basophils # Basophils # (Manual) Metamyelocytes # (Man) Myelocytes # (Manual) Nucleated RBCs Sodium BUN Glucose POC Glucose (mg/dL) 267 H 187 H 162 H Plasma Lactic Acid Jagdish Calcium AST ALT Alkaline Phosphatase Troponin I Total Protein Albumin 05/15/20 05/16/20 05/16/20 20:44 07:29 07:30 WBC RBC Hgb Hct MCV RDW Plt Count Neutrophils # Neutrophils # (Manual) Lymphocytes # Monocytes # Basophils # Basophils # (Manual) Metamyelocytes # (Man) Myelocytes # (Manual) Nucleated RBCs Sodium BUN Glucose POC Glucose (mg/dL) 130 H 44 L 53 L Plasma Lactic Acid Jagdish Calcium AST ALT Alkaline Phosphatase Troponin I Total Protein Albumin 05/16/20 05/16/20 05/16/20 07:59 08:18 08:38 WBC RBC Hgb Hct MCV RDW Plt Count Neutrophils # Neutrophils # (Manual) Lymphocytes # Monocytes # Basophils # Basophils # (Manual) Metamyelocytes # (Man) Myelocytes # (Manual) Nucleated RBCs Sodium BUN Glucose POC Glucose (mg/dL) 65 L 61 L 117 H Plasma Lactic Acid Jagdish Calcium AST ALT Alkaline Phosphatase Troponin I Total Protein Albumin - Diagnostic Findings Chest x-ray: report reviewed, image reviewed CT scan - chest: report reviewed, image reviewed Assessment and Plan Assessment: Acute on chronic diastolic heart failure Right-sided pneumonia Bilateral mild to moderate pleural effusion on the left more than the right side Elevated troponin Generalized weakness History of A. fib with RVR History of breast cancer and chemotherapy Plan: antibiotics Consult interventional radiology for left-sided thoracentesis Repeat labs tomorrow Continue gentle diuresis Time with Patient: Greater than 30
--- NOTE | 2020-05-16 13:37 | P.PN ---
Subjective 64-year-old female one of Dr. Aldridge patient with past medical history of breast cancer, hypertension, hyperlipidemia and COPD who apparently was hospitalized at [facility] 3 weeks ago for pneumonia CHF and A. fib and has done well has been seen oncology on regular basis apparently she was diagnosed with worsening dyspnea and shortness of breath found to have significant lymph nodes in the mediastinal area with left breast mass measured 1.7, 1.4 cm biopsy of the breasts and axilla on 02/17/2020 was consistent with invasive ductal carcinoma ER/ND negative, HER-2 1+, no evidence of metastasis disease lung infiltrate and pleural effusion had resolved a Chin was started on new adjuvant dose dense of chemotherapy in April 09 she had a prolonged hospitalization no April 11 till April 24 for CHF exacerbation and she had a pleural effusion suspected pneumonia 6 L of thoracentesis of the right side was taking she had also severe leukopenia and was in ICU for long time with WBC/ANC recover about 9 days after G-CSF injection was started. [place] that her respiratory symptoms more likely inflammatory and possible BOOP she ended up having second dose of chemotherapy with G-CSF on 05/02/2020. Patient presented to [facility] emergency department complaining of severe weakness and fatigue patient profound weakness fall on the floor was in able to move her arms and legs her went to lift her out of bed to go to the bathroom and that she is basically just felt to the floor she denies any fever, nausea headache dizziness no vomiting positive mild dyspnea and shortness of breath no chest pain positive mild abdominal pain with no dysuria diarrhea constipation swelling of the legs she has generalized weakness no focal deficit. At the presentation to [place] emergency department found to have elevated troponin with proBNP was 1999 with concern of pneumonia she was giving Levaquin and vancomycin and transfer to [facility] to be under cardiology and oncology. 05/15: Patient evaluated this morning, resting in bed comfortably. She denies any shortness of breath of chest pain. She echocardiogram yesterday that showed moderate concentric left ventricular hypertrophy, normal left ventricular systolic function with an EF between 60-65%, mild aortic regurgitation, moderate mitral regurgitation, moderate tricuspid regurgitation, and moderate pulmonary hypertension. Cardiology is on consult for elevated troponin, believes elevated troponins are not related to acute coronary syndrome. She continues on Levaquin for pneumonia. Glucose is noted to be slightly elevated, she started on 5 units NovoLog with meals plus sliding scale and hold for blood sugar less than 100. 05/16: Patient noted to be resting in bed comfortably, she is in no acute distress. CT of the chest showed bilateral pleural effusions, ultrasound of the chest was ordered, showed moderate left pleural effusion. Pulmonary on consult. Interventional radiology consulted for left-sided thoracentesis. She continues on Levaquin for pneumonia, Blood cultures show no growth to date. Patient was noted to have a hypoglycemic event, glucose 145. Patient is given half amp of dextrose IV fluids were changed to D5. Levemir was decreased to 45 units. Acute coronary event has been ruled out by cardiology. Patient noted to be hypot hermic with a rectal temp of 95.3, warming blankets placed on patient. Objective - Vital Signs Vital signs: Vital Signs Temp 95.3 F L 05/16/20 10:41 Pulse 91 05/16/20 11:25 Resp 20 05/16/20 11:25 BP 121/62 05/16/20 11:25 Pulse Ox 91 L 05/16/20 11:25 Intake & Output 05/15/20 05/16/20 05/16/20 18:59 06:59 18:59 Intake Total 300 1006 Output Total 300 Balance 300 -300 1006 Intake: Intake, IV Titration 300 Amount Sodium Chloride 0.9% 1, 300 000 ml @ 75 mls/hr IV . [id number] [facility] Rx#:[id number] Oral 1006 Output: Urine 300 Other: Voiding Method Bedside Commode # Voids 1 - Exam General Appearance: Alert, cooperative, no distress Neck HEENT: Supple, no lymphadenopathy, no thyroid enlargement, no carotid bruits. Lungs: Decreased breath some bilateral fine rhonchi positive mild expiratory wheezes with crackles in the right base. Chest Wall: Decrease expansion with deep inspiration no tenderness and no deformity was found on exam, no costochondral pain or discomfort. Heart: Regular rate and rhythm, S1, S2 normal, positive systolic murmur. Back: Symmetric, no curvature, ROM normal, no CVA tenderness. Abdomen: Soft, non-tender, bowel sounds active all four quadrants, no masses, no organomegaly. Extremities: 1+ edema and decreased pulses bilaterally with slight arthritis of both knees and hips. Pulses: 2+ and symmetric. Skin: Skin color, texture, tugor normal, no rashes or lesions. Neurologic: Alert oriented x3 cranial nerves II through XII intact, no motor de ficit, generalized weakness - Labs CBC & Chem 7: 05/15/20 05:39 05/15/20 05:39 Labs: Abnormal Lab Results - Last 24 Hours (Table) 05/15/20 05/15/20 05/16/20 Range/Units 17:06 20:44 07:29 POC Glucose (mg/dL) 162 H 130 H 44 L (75-99) mg/dL 05/16/20 05/16/20 05/16/20 Range/Units 07:30 07:59 08:18 POC Glucose (mg/dL) 53 L 65 L 61 L (75-99) mg/dL 05/16/20 05/16/20 Range/Units 08:38 12:23 POC Glucose (mg/dL) 117 H 358 H (75-99) mg/dL Microbiology - Last 24 Hours (Table) 05/14/20 Unknown Blood Culture - Preliminary Blood No Growth after 24 hours Assessment and Plan Plan: 1 non-ST GA: With elevated troponin. cardiology on consult, echocardiogram completed, ACS has been ruled out by cardiology 2 right-sided pneumonia: Most likely gram-negative specially with recent history of neutropenia post chemotherapy, patient was giving 1 g of Vanco along with Levaquin will consult pulmonary patient might require smaller dose of steroid as well. 3 right and left sided pleural effusion: Left side greater than the right, patient plans for sided thoracentesis 4 severe generalized weakness most likely constitutional symptom secondary to chemotherapy along with her cancer and management overall continue supportive care physical therapy and occupational therapy. 5 chronic history of A. fib with RVR: Pulse rates under control currently patient will remain on atenolol 25 mg daily. Still on Eliquis 5 mg twice a day as well. 6 history of breast cancer been treated with chemotherapy with reaction on side effect of chemotherapy. 7 type 2 diabetes on insulin: Continue patient on Levemir along with Accu-Chek sliding scales coverage still on metformin as well. 8 history of COPD: Remain on Symbicort along with DuoNeb and multiple a cast and supportive O2. 9 hypothyroidism: Continue patient on levothyroxine 175 g daily. 10 GI prophylaxis: Patient to continue on pantoprazole 40 mg daily. 11 severe lactic acidosis: Continue supportive care as well continue to treat underlying infection with IV antibiotics repeat lactic acid after hydration and antibiotic use. 12 hypertension: Was well controlled on atenolol, Norvasc 10 mg daily, Zestril 20 mg daily. 13 diastolic congestive heart failure: Remain on Lasix and lisinopril. 14 DVT prophylaxis: Remain on anticoagulation. CODE STATUS: Full code. Admit patient to the inpatient service for more than 2 night stay. The above impression and plan of care have been discussed and directed by signing physician. Luzma Ivey nurse practitioner acting as scribe for signing physician.
[2020-05-16] MEDS: ALPRAZolam 0.5 MG TAB PO PRN ×2 (13:48→21:32)
[2020-05-16] MEDS ORDERED: FUROSEMIDE 10 MG/ML 4 ML VIAL IV STA (14:42)
--- NOTE | 2020-05-16 14:48 | P.PN ---
Subjective Progress Note Date: 05/16/20 Principal diagnosis: Weakness, elevated troponin. S/P 2 cycles of neoadjuvant AC with GCSF for breast cancer In f/u today pt is noted to be SOB at rest, up to 15L NC. She cannot move without being SOB, she has some trouble speaking a full sentence. She denies chest pain. She is having trouble eating because she breathe/gets wore out while chewing. Objective - Vital Signs Vital signs: Vital Signs Temp 97.9 F 05/16/20 14:07 Pulse 91 05/16/20 14:00 Resp 20 05/16/20 14:00 BP 121/62 05/16/20 11:25 Pulse Ox 91 L 05/16/20 11:25 Intake & Output 05/15/20 05/16/20 05/16/20 18:59 06:59 18:59 Intake Total 300 1006 Output Total 300 Balance 300 -300 1006 Intake: Intake, IV Titration 300 Amount Sodium Chloride 0.9% 1, 300 000 ml @ 75 mls/hr IV . [id number] [facility] Rx#:[id number] Oral 1006 Output: Urine 300 Other: Voiding Method Bedside Commode # Voids 1 - Constitutional General appearance: Present: average body habitus, cooperative, mild distress - EENT Eyes: Present: anicteric sclerae, EOMI ENT: Present: hearing grossly normal - Respiratory Details: shallow resp, increased resp rate a rest Respiratory: bilateral: diminished, dullness - Cardiovascular Heart sounds: normal: S1, S2 - Peripheral edema leg Peripheral Edema: bilateral: None - Gastrointestinal General gastrointestinal: Present: soft - Integumentary Integumentary: Present: pale - Neurologic Neurologic: Present: CNII-XII intact - Musculoskeletal Musculoskeletal: Present: generalized weakness - Psychiatric Psychiatric: Present: A&O x's 3, appropriate affect, intact judgment & insight - Labs CBC & Chem 7: 05/15/20 05:39 05/15/20 05:39 Labs: Abnormal Lab Results - Last 24 Hours (Table) 05/15/20 05/15/20 05/16/20 Range/Units 17:06 20:44 07:29 POC Glucose (mg/dL) 162 H 130 H 44 L (75-99) mg/dL 12/23/20 12/23/20 12/23/20 Range/Units 07:30 07:59 08:18 POC Glucose (mg/dL) 53 L 65 L 61 L (75-99) mg/dL 05/16/20 05/16/20 Range/Units 08:38 12:23 POC Glucose (mg/dL) 117 H 358 H (75-99) mg/dL Microbiology - Last 24 Hours (Table) 05/14/20 Unknown Blood Culture - Preliminary Blood No Growth after 24 hours - Imaging and Cardiology CT scan - chest: report reviewed Assessment and Plan (1) Shortness of breath Narrative/Plan: Pulm seeing pt. Pending thora. Did modify diet because pt does not have the breath to chew. Added supplemental drink to try and keep pt nutrition up. Current Visit: Yes Status: Acute Priority: High Code(s): R06.02 - SHORTNESS OF BREATH SNOMED Code(s): 297361555 (2) Elevated troponin Narrative/Plan: Cardiology consulted. ECHO done, nothing cardiac to account for pt symptoms. Current Visit: Yes Status: Acute Priority: High Code(s): R77.8 - OTHER SPECIFIED ABNORMALITIES OF PLASMA PROTEINS SNOMED Code(s): 249448029 (3) Pneumonia Narrative/Plan: Chest x-ray suspicious for the same. Patient recently had a prolonged hospitalization and bout with CHF and pneumonia with a 6 L rt sided thoracentesis (non-malignant) Patient is currently on antibiotics. She has progressive SOB overnight O2 up to 15 L today, pt visibly SOB. CTA was neg for PE. EKG completed nothing acute. Pulm, ID and Internal Medicine following. Current Visit: Yes Status: Acute Priority: High Code(s): J18.9 - PNEUMONIA, UNSPECIFIED ORGANISM SNOMED Code(s): 618023225 (4) Breast cancer Narrative/Plan: Patient has a history of stage II a breast cancer. She is status post 2 cycles of neoadjuvant treatment. She is on cardiotoxic therapy, Adriamycin. She was recently worked up pretty extensively at [facility] during prolonged hospitalization there. Case was reviewed with both Pulmonary and Cardiology prior to proceeding with second cycle. ECHO shows LVEF of 60-65% Cont to work up of SOB. She is having progressive SOB, low temp hi O2 needs, symptomatic. Pending a thora after holding anticoagulation. Will follow with pt hospitalization. Current Visit: Yes Status: Acute Priority: High Code(s): C50.919 - MALIGNANT NEOPLASM OF UNSP SITE OF UNSPECIFIED FEMALE BREAST SNOMED Code(s): 307807069 (5) CHF (congestive heart failure) Current Visit: No Status: Chronic Priority: Medium Code(s): I50.9 - HEART FAILURE, UNSPECIFIED SNOMED Code(s): 48697253 Plan: Pt prefers nystatin powder for skin fold irritation/yeast-ordered for her .
[2020-05-16 16:03] LABS: INR 1.2 (<1.2); Prothrombin Time 12.4 sec (9.0-12.0)
[2020-05-16 16:13] LABS: T4, Free (Free Thyroxine) 2.04 ng/dL (0.78-2.19)
[2020-05-16 17:20] LABS: Glucose,Whole Blood 330 mg/dL (75-99)
[2020-05-16 20:08] LABS: Glucose,Whole Blood 216 mg/dL (75-99)
[2020-05-16] MEDS: methylPREDNISolone SOD SUCCI 40 MG/ML 1 ML VIAL IV SCH ×2 (21:28→23:54)
[2020-05-16] MEDS: ATORVASTATIN 10 MG TAB PO SCH (21:28)
[2020-05-16] MEDS: LEVOFLOXACIN 500 MG TAB PO SCH (21:28)
[2020-05-16 21:31] LABS: ABG Base Excess -2.1 mmol/L; ABG HCO3 23 mmol/L (21-25); ABG Oxygen Saturation 45.6 % (94-97); ABG PCO2 36 mmHg (35-45); ABG PH 7.41 (7.35-7.45); ABG TCO2 24 mmol/L (19-24); Allen Test Performed? Yes
[2020-05-16] MEDS: IBUPROFEN 400 MG TAB PO PRN (21:31)
[2020-05-16] MEDS: OLANZapine 5 MG TAB PO SCH (21:33)
[2020-05-16 21:38] LABS: ABG PO2 26 mmHg (83-108)
[2020-05-17] MEDS: INSULIN ASPART (NovoLOG) 100 UNIT/ML VIAL SQ SCH ×7 (06:25→20:55)
[2020-05-17] MEDS: PANTOPRAZOLE 40 MG TABLET PO SCH (06:48)
[2020-05-17] MEDS: SYMBICORT 160-4.5 MCG INHALER INHALATION SCH ×2 (07:27→20:46)
[2020-05-17] MEDS: ALBUTEROL HFA INHALER INHALATION PRN ×3 (07:27→20:45)
[2020-05-17] MEDS: INSULIN DETEMIR (LEVEMIR) 100 UNIT/ML SYR SQ SCH ×2 (10:25→20:56)
[2020-05-17] MEDS: POTASSIUM CHLORIDE ER 20 MEQ TAB.ER PO SCH ×2 (10:29→20:16)
[2020-05-17] MEDS: FUROSEMIDE 10 MG/ML 4 ML VIAL IV SCH (11:27)
[2020-05-17] MEDS: methylPREDNISolone SOD SUCCI 40 MG/ML 1 ML VIAL IV SCH ×3 (11:27→23:42)
[2020-05-17] MEDS: BUMETANIDE 1 MG TAB PO SCH ×2 (11:28→20:16)
[2020-05-17] MEDS: MONTELUKAST 10 MG TAB PO SCH (11:28)
[2020-05-17] MEDS: FLUoxetine HCL 20 MG CAP PO SCH (11:28)
[2020-05-17] MEDS: metFORMIN 500 MG TAB PO SCH ×2 (11:28→20:16)
[2020-05-17] MEDS: amLODIPine 10 MG TAB PO SCH (11:28)
[2020-05-17] MEDS: ISOSORBIDE MONONITRATE ER 30 MG TAB.ER.24H PO SCH (11:28)
[2020-05-17] MEDS: METOPROLOL TARTRATE 25 MG TAB PO SCH ×2 (11:29→20:16)
[2020-05-17] MEDS: lisinopriL 20 MG TAB PO SCH (11:29)
[2020-05-17] MEDS: CYANOCOBALAMIN 500 MCG TAB PO SCH (11:29)
[2020-05-17] MEDS: NON FORMULARY DRUG (Dapagliflozin Propanediol [Farxiga] 5 MG Tablet) PO SCH (11:29)
[2020-05-17] MEDS: LEVOTHYROXINE 88 MCG TAB PO SCH (11:29)
[2020-05-17] MEDS: CLOTRIMAZOLE/BETAMETH 1-0.05% CREAM 45 GM TUBE TOPICAL SCH ×2 (11:30→20:16)
[2020-05-17] MEDS: NYSTATIN 100,000 UNIT/GM POWD 15 GM TOPICAL SCH ×2 (11:30→20:16)
--- NOTE | 2020-05-17 11:35 | P.PN ---
Subjective Progress Note Date: 05/17/20 Principal diagnosis: Weakness, elevated troponin. S/P 2 cycles of neoadjuvant AC with GCSF for breast cancer In f/u today pt breathing is much less labored, she is able to carry on a conversation with me. She is sitting up in a chair. She thinks she does feel a little bit better. Thoracentesis has been canceled due to the location, concerns for being too close to the lung. Patient has no other complaints other than generalized weakness. Appetite is poor but she is utilizing the supplements that were ordered for her. Objective - Vital Signs Vital signs: Vital Signs Temp 98.3 F 05/17/20 04:00 Pulse 90 05/17/20 09:18 Resp 20 05/17/20 09:18 BP 102/64 05/17/20 09:18 Pulse Ox 95 05/17/20 09:18 Intake & Output 05/16/20 05/17/20 05/17/20 18:59 06:59 18:59 Intake Total 1126 475 Output Total 550 Balance 1126 475 -550 Weight 78.5 kg Intake: Oral 1126 475 Output: Urine 550 Other: Voiding Method Bedpan # Voids 1 # Bowel Movements 1 - Constitutional General appearance: Present: average body habitus, cooperative, no acute distress - EENT Eyes: Present: anicteric sclerae, EOMI ENT: Present: hearing grossly normal - Respiratory Respiratory: bilateral: diminished - Cardiovascular Heart sounds: normal: S1, S2 - Peripheral edema leg Peripheral Edema: bilateral: Trace - Gastrointestinal General gastrointestinal: Present: normal bowel sounds, soft - Integumentary Integumentary: Present: pale - Neurologic Neurologic: Present: CNII-XII intact - Musculoskeletal Musculoskeletal: Present: generalized weakness - Psychiatric Psychiatric: Present: A&O x's 3, appropriate affect, intact judgment & insight - Labs CBC & Chem 7: 05/15/20 05:39 05/15/20 05:39 Labs: Abnormal Lab Results - Last 24 Hours (Table) 05/16/20 05/16/20 05/16/20 Range/Units 12:23 15:25 15:25 PT 12.4 H (9.0-12.0) sec INR 1.2 H (<1.2) ABG pO2 (83-108) mmHg ABG O2 Saturation (94-97) % POC Glucose (mg/dL) 358 H (75-99) mg/dL TSH 10.400 H (0.465-4.680) mIU/L Free T3 pg/mL 2.5 L (2.8-5.3) pg/ml 05/16/20 05/16/20 05/16/20 Range/Units 17:19 20:06 21:28 PT (9.0-12.0) sec INR (<1.2) ABG pO2 26 L* (83-108) mmHg ABG O2 Saturation 45.6 L (94-97) % POC Glucose (mg/dL) 330 H 216 H (75-99) mg/dL TSH (0.465-4.680) mIU/L Free T3 pg/mL (2.8-5.3) pg/ml Microbiology - Last 24 Hours (Table) 05/14/20 Unknown Blood Culture - Preliminary Blood No Growth after 48 hours - Imaging and Cardiology chest US report reviewed Assessment and Plan (1) Shortness of breath Narrative/Plan: Patient doing better today, shortness of breath is less intense. She is still on 15 L. Pulm following. Did modify diet because pt did not have the breath to chew yesterday. She is tolerating well, she is tolerating the supplement drink. Current Visit: Yes Status: Acute Priority: High Code(s): R06.02 - SHORTNESS OF BREATH SNOMED Code(s): 817321573 (2) Elevated troponin Narrative/Plan: Cardiology consulted. ECHO done, nothing cardiac to account for pt resp symptoms. Current Visit: Yes Status: Acute Priority: High Code(s): R77.8 - OTHER SPECIFIED ABNORMALITIES OF PLASMA PROTEINS SNOMED Code(s): 702553718 (3) Pneumonia Narrative/Plan: Breathing is better today, her temp is normal, no longer on warming blanket Pulm, ID and Internal Medicine following. Current Visit: Yes Status: Acute Priority: High Code(s): J18.9 - PNEUMONIA, UNSPECIFIED ORGANISM SNOMED Code(s): 624724605 (4) Breast cancer Narrative/Plan: Patient has a history of stage II a breast cancer. She is status post 2 cycles of neoadjuvant treatment. She is on cardiotoxic therapy, Adriamycin. Her cardiac work up is negative. Her pulmonary issues are not due to chemo. She had at least 2 episodes similar to her current presentation prior to even starting chemo. Her adjuvant treatment is on hold until current condition is resolved. Pt has curable cancer. Current Visit: Yes Status: Acute Priority: High Code(s): C50.919 - MALIGNANT NEOPLASM OF UNSP SITE OF UNSPECIFIED FEMALE BREAST SNOMED Code(s): 262616809 (5) CHF (congestive heart failure) Current Visit: No Status: Chronic Priority: Medium Code(s): I50.9 - HEART FAILURE, UNSPECIFIED SNOMED Code(s): 01457403 Plan: Pt prefers nystatin powder for skin fold irritation/yeast-ordered for her 05/16/20. Did check pt thyroid. Abnormalities likely due to acute illness. Will confirm with MD before making dose adjustments.
--- NOTE | 2020-05-17 12:01 | P.PN ---
Subjective 64-year-old female one of Dr. Aldridge patient with past medical history of breast cancer, hypertension, hyperlipidemia and COPD who apparently was hospitalized at [facility] 3 weeks ago for pneumonia CHF and A. fib and has done well has been seen oncology on regular basis apparently she was diagnosed with worsening dyspnea and shortness of breath found to have significant lymph nodes in the mediastinal area with left breast mass measured 1.7, 1.4 cm biopsy of the breasts and axilla on 02/17/2020 was consistent with invasive ductal carcinoma ER/OK negative, HER-2 1+, no evidence of metastasis disease lung infiltrate and pleural effusion had resolved a Chin was started on new adjuvant dose dense of chemotherapy in April 09 she had a prolonged hospitalization no April 11 till April 24 for CHF exacerbation and she had a pleural effusion suspected pneumonia 6 L of thoracentesis of the right side was taking she had also severe leukopenia and was in ICU for long time with WBC/ANC recover about 9 days after G-CSF injection was started. [place] that her respiratory symptoms more likely inflammatory and possible BOOP she ended up having second dose of chemotherapy with G-CSF on 05/02/2020. Patient presented to [facility] emergency department complaining of severe weakness and fatigue patient profound weakness fall on the floor was in able to move her arms and legs her went to lift her out of bed to go to the bathroom and that she is basically just felt to the floor she denies any fever, nausea headache dizziness no vomiting positive mild dyspnea and shortness of breath no chest pain positive mild abdominal pain with no dysuria diarrhea constipation swelling of the legs she has generalized weakness no focal deficit. At the presentation to [facility] emergency department found to have elevated troponin with proBNP was 1999 with concern of pneumonia she was giving Levaquin and vancomycin and transfer to [facility] to be under cardiology and oncology. 05/15: Patient evaluated this morning, resting in bed comfortably. She denies any shortness of breath of chest pain. She echocardiogram yesterday that showed moderate concentric left ventricular hypertrophy, normal left ventricular systolic function with an EF between 60-65%, mild aortic regurgitation, moderate mitral regurgitation, moderate tricuspid regurgitation, and moderate pulmonary hypertension. Cardiology is on consult for elevated troponin, believes elevated troponins are not related to acute coronary syndrome. She continues on Levaquin for pneumonia. Glucose is noted to be slightly elevated, she started on 5 units NovoLog with meals plus sliding scale and hold for blood sugar less than 100. 05/16: Patient noted to be resting in bed comfortably, she is in no acute distress. CT of the chest showed bilateral pleural effusions, ultrasound of the chest was ordered, showed moderate left pleural effusion. Pulmonary on consult. Interventional radiology consulted for left-sided thoracentesis. She continues on Levaquin for pneumonia, Blood cultures show no growth to date. Patient was noted to have a hypoglycemic event, glucose 145. Patient is given half amp of dextrose IV fluids were changed to D5. Levemir was decreased to 45 units. Acute coronary event has been ruled out by cardiology. Patient noted to be hypoth ermic with a rectal temp of 95.3, warming blankets placed on patient. 05/17: Patient evaluated this morning, resting in bed comfortably, she is in no acute distress. Plans on interventional radiology for left-sided thoracentesis canceled due to high risk and concern for pneumothorax during procedure. Patient continues to be short of breath, still on high flow oxygen at 15 L, she is currently saturating 95%. Blood cultures show no growth to date. Pulmonary and oncology continue to follow. She continues on Solu-Medrol 40 mg every 8 hours along with updraft treatments. Objective - Vital Signs Vital signs: Vital Signs Temp 98.3 F 05/17/20 04:00 Pulse 90 05/17/20 09:18 Resp 20 05/17/20 09:18 BP 102/64 05/17/20 09:18 Pulse Ox 95 05/17/20 09:18 Intake & Output 05/16/20 05/17/20 05/17/20 18:59 06:59 18:59 Intake Total 1126 475 Output Total 550 Balance 1126 475 -550 Weight 78.5 kg Intake: Oral 1126 475 Output: Urine 550 Other: Voiding Method Bedpan # Voids 1 # Bowel Movements 1 - Exam General Appearance: Alert, cooperative, no distress Neck HEENT: Supple, no lymphadenopathy, no thyroid enlargement, no carotid bruits. Lungs: Decreased breath some bilateral fine rhonchi positive Chest Wall: Decrease expansion with deep inspiration no tenderness and no deformity was found on exam, no costochondral pain or discomfort. Heart: Regular rate and rhythm, S1, S2 normal, positive systolic murmur. Back: Symmetric, no curvature, ROM normal, no CVA tenderness. Abdomen: Soft, non-tender, bowel sounds active all four quadrants, no masses, no organomegaly. Extremities: 1+ edema and decreased pulses bilaterally with slight arthritis of both knees and hips. Pulses: 2+ and symmetric. Skin: Skin color, texture, tugor normal, no rashes or lesions. Neurologic: Alert oriented x3 cranial nerves II through XII intact, no motor deficit, generalized weakness - Labs CBC & Chem 7: 05/15/20 05:39 05/15/20 05:39 Labs: Abnormal Lab Results - Last 24 Hours (Table) 05/16/20 05/16/20 05/16/20 Range/Units : 15:25 15:25 PT 12.4 H (9.0-12.0) sec INR 1.2 H (<1.2) ABG pO2 (83-108) mmHg ABG O2 Saturation (94-97) % POC Glucose (mg/dL) 358 H (75-99) mg/dL TSH 10.400 H (0.465-4.680) mIU/L Free T3 pg/mL 2.5 L (2.8-5.3) pg/ml 05/16/20 05/16/20 05/16/20 Range/Units 17:19 20:06 21:28 PT (9.0-12.0) sec INR (<1.2) ABG pO2 26 L* (83-108) mmHg ABG O2 Saturation 45.6 L (94-97) % POC Glucose (mg/dL) 330 H 216 H (75-99) mg/dL TSH (0.465-4.680) mIU/L Free T3 pg/mL (2.8-5.3) pg/ml Microbiology - Last 24 Hours (Table) 05/14/20 Unknown Blood Culture - Preliminary Blood No Growth after 48 hours Assessment and Plan Plan: 1 non-ST ME: With elevated troponin. cardiology on consult, echocardiogram completed, ACS has been ruled out by cardiology 2 right-sided pneumonia: Most likely gram-negative specially with recent history of neutropenia post chemotherapy, patient was giving 1 g of Vanco along with Levaquin will consult pulmonary patient might require smaller dose of steroid as well. 3 right and left sided pleural effusion: Left side greater than the right, patient plans for thoracentesis canceled 4 severe generalized weakness most likely constitutional symptom secondary to chemotherapy along with her cancer and management overall continue supportive care physical therapy and occupational therapy. 5 chronic history of A. fib with RVR: Pulse rates under control currently patient will remain on atenolol 25 mg daily. Still on Eliquis 5 mg twice a day as well. 6 history of breast cancer been treated with chemotherapy with reaction on side effect of chemotherapy. 7 type 2 diabetes on insulin: Continue patient on Levemir along with Accu-Chek sliding scales coverage still on metformin as well. 8 history of COPD: Remain on Symbicort along with DuoNeb and multiple a cast and supportive O2. 9 hypothyroidism: Continue patient on levothyroxine 175 g daily. 10 GI prophylaxis: Patient to continue on pantoprazole 40 mg daily. 11 severe lactic acidosis: Continue supportive care as well continue to treat underlying infection with IV antibiotics repeat lactic acid after hydration and antibiotic use. 12 hypertension: Was well controlled on atenolol, Norvasc 10 mg daily, Zestril 20 mg daily. 13 diastolic congestive heart failure: Remain on Lasix and lisinopril. 14 DVT prophylaxis: Remain on anticoagulation. CODE STATUS: Full code. Admit patient to the inpatient service for more than 2 night stay. The above impression and plan of care have been discussed and directed by signing physician. Luzma Ivey nurse practitioner acting as scribe for signing physician.
--- NOTE | 2020-05-17 12:58 | P.PN ---
Subjective Progress Note Date: 05/17/20 Principal diagnosis: Acute on chronic diastolic heart failure Right-sided pneumonia Bilateral mild to moderate pleural effusion on the left more than the right side Elevated troponin Generalized weakness History of A. fib with RVR History of breast cancer and chemotherapy 05/17/2020, patient seen and evaluated examined during the rounds he remains very hypoxic on 15 L high flow oxygen, oxygen saturation remains marginal get short of breath on minimal activity and exertion, interventional radiology eval and evaluated the patient recent ultrasound now in the radiology found to have just 3 cm of fluid with a high risk of pneumothorax, Procedure Was Canceled, Would Recommend to Consult ID Service for Broader Spectrum Antibiotics Currently Patient Is Just on by Mouth Levaquin, Given Limited Choices Due To Penicillin ALLERGY, Continue IV Steroids This is a 64-year-old female who was seen eval, patient admitted with a transfer from a neck in the hospital where she was presented with progressive weakness found to have elevated troponin, patient was advised to be transferred to [facility], patient has a prior significant history of A. fib with RVR and congestive heart failure likely diastolic failure was admitted at [facility] about 3 weeks ago, during evaluation she was found to have elevated BNP of over 2000, patient appears to have a diastolic heart failure ejection fraction however 65%, computed tomography scan of the chest shows bilateral pleural effusion small to moderate, right-sided effusion is a small left-sided is about 6-7 cm in size, ultrasound of the chest has been reviewed IR has been consulted for thoracentesis, patient has been hypothermic with warming blanket are being ordered as well, she is still on supplemental oxygen with 15 L saturation is 91%,, blood cultures have been negative, Objective - Vital Signs Vital signs: Vital Signs Temp 98.3 F 05/17/20 04:00 Pulse 90 05/17/20 09:18 Resp 20 05/17/20 09:18 BP 102/64 05/17/20 09:18 Pulse Ox 95 05/17/20 09:18 Intake & Output 05/16/20 05/17/20 05/17/20 18:59 06:59 18:59 Intake Total 1126 475 Output Total 550 Balance 1126 475 -550 Weight 78.5 kg Intake: Oral 1126 475 Output: Urine 550 Other: Voiding Method Bedpan # Voids 1 # Bowel Movements 1 - Exam - Constitutional General appearance: average body habitus - EENT Eyes: PERRLA Ears: bilateral: normal - Neck Carotids: bilateral: upstroke normal Thyroid: bilateral: normal size - Respiratory Respiratory: bilateral: CTA - Cardiovascular Rhythm: regular Heart sounds: normal: S1, S2 - Gastrointestinal General gastrointestinal: normal bowel sounds - Neurologic Neurologic: CNII-XII intact - Musculoskeletal Musculoskeletal: gait normal, generalized weakness - Psychiatric Psychiatric: A&O x's 3, appropriate affect, intact judgment & insight - Labs CBC & Chem 7: 05/15/20 05:39 05/15/20 05:39 Labs: Abnormal Lab Results - Last 24 Hours (Table) 05/16/20 05/16/20 05/16/20 Range/Units 15:25 15:25 17:19 PT 12.4 H (9.0-12.0) sec INR 1.2 H (<1.2) ABG pO2 (83-108) mmHg ABG O2 Saturation (94-97) % POC Glucose (mg/dL) 330 H (75-99) mg/dL TSH 10.400 H (0.465-4.680) mIU/L Free T3 pg/mL 2.5 L (2.8-5.3) pg/ml 05/16/20 05/16/20 Range/Units 20:06 21:28 PT (9.0-12.0) sec INR (<1.2) ABG pO2 26 L* (83-108) mmHg ABG O2 Saturation 45.6 L (94-97) % POC Glucose (mg/dL) 216 H (75-99) mg/dL TSH (0.465-4.680) mIU/L Free T3 pg/mL (2.8-5.3) pg/ml Microbiology - Last 24 Hours (Table) 05/14/20 Unknown Blood Culture - Preliminary Blood No Growth after 48 hours Assessment and Plan Assessment: Acute hypoxic respiratory failure Acute on chronic diastolic heart failure Right-sided pneumonia Bilateral mild to moderate pleural effusion on the left more than the right side Elevated troponin Generalized weakness History of A. fib with RVR History of breast cancer and chemotherapy Plan: IV steroids ID consultation for broader spectrum antibiotics Limited amount of pleural fluid thoracentesis cannot be performed with high risk of pneumothorax Continue iv steroids Continue gentle diuresis Time with Patient: Greater than 30
[2020-05-17 14:56] VITALS: BMI 32.7
[2020-05-17] MEDS: DEXTROSE 5%-0.9% NACL 1,000 ML IV SCH (15:47)
[2020-05-17] MEDS: ATORVASTATIN 10 MG TAB PO SCH (20:13)
[2020-05-17] MEDS: LEVOFLOXACIN 500 MG TAB PO SCH (20:16)
[2020-05-17] MEDS: OLANZapine 5 MG TAB PO SCH (20:17)
[2020-05-17] MEDS: AZTREONAM 2 GM in SODIUM CHLORIDE 0.9% 100 ML IVPB SCH (23:42)
[2020-05-18] MEDS: DEXTROSE 5%-0.9% NACL 1,000 ML IV SCH ×2 (00:05→15:31)
--- NOTE | 2020-05-18 00:08 | CONS ---
CONSULTATION DATE OF SERVICE: 05/17/2020. REASON FOR CONSULTATION: Possible Gram-negative pneumonia with ANTIBIOTIC ALLERGIES for antibiotic recommendations. HISTORY OF PRESENT ILLNESS: The patient is a 64-year-old female with past medical history significant for breast cancer in this patient who also has a history of CHF and atrial fibrillation, on chemotherapy. Last dose of chemo with GCSF on 05/02/2020. The patient presented to [facility] ER for evaluation of severe weakness, fatigue, and the patient apparently did have a fall on the floor, unable to move her arms and legs. Her tried to help her up and subsequently the patient was sent to the [facility] ER, where the patient was evaluated at that facility. The patient was noted to have elevated troponin and proBNP with concern for pneumonia. The patient was started on Levaquin and transferred to [facility] for further evaluation. On arrival at our facility, the patient was afebrile. The patient did have elevated white count on presentation to the hospital of 21.8 with a left shift and has been repeated since then. The patient did have a normal creatinine. Liver enzymes were mildly elevated. The patient did have a chest x-ray followed by CT angiogram with no evidence of PE but it did show moderate bilateral effusion as well as patchy infiltrate throughout both lung mcnamara and perihilar region underlying pneumonia. The patient has been treated with Levaquin, as the patient does have MULTIPLE ANTIBIOTIC ALLERGIES. Infectious Disease was consulted today with concern for broader antibiotic coverage. Patient on my evaluation denies having any fever or chills. She is breathing slightly comfortably. The patient denies having any chest pain. Very minimal cough. Occasional sputum. No nausea, no vomiting. No abdominal pain. No diarrhea. REVIEW OF SYSTEMS: Positive points have been mentioned in the HPI. Rest of the systems are negative. PAST MEDICAL HISTORY: Diabetes mellitus, hyperlipidemia, hypertension, hypothyroidism, left breast cancer; last chemo was 05/07/2020. PAST SURGICAL HISTORY: , cholecystectomy, hysterectomy, bilateral rotator cuff surgery, bunionectomy, right foot. SOCIAL HISTORY: Remote history of smoking. No drinking or drug use. FAMILY HISTORY: Father with history of hypertension. ALLERGIES: CEFACLOR, CLARITHROMYCIN, PENICILLIN, SULFA. MEDICATIONS: Medications currently include Xanax, Norvasc, Lipitor, Lotrisone, Symbicort, Bumex, vitamin B12, Prozac, Lasix, Motrin, NovoLog, Levemir, Levaquin, Synthroid, Zestril, Solu-Medrol, Lopressor, Narcan, Zyprexa. PHYSICAL EXAMINATION: Blood pressure is 122/49 with a pulse of 86, temperature 96.3. She is 93% on 15 L high- flow oxygen. General description is an elderly female lying in bed in no distress. No tachypnea or accessory muscle of respiration use. HEENT: Examination shows slight pallor. No scleral icterus. Oral mucous membrane is dry. NECK: Trachea is central. No thyromegaly. LUNGS: Unlabored breathing with decreased breath sounds in the base. No wheeze or crackle. HEART: S1, S2. Regular rate and rhythm. ABDOMEN: Soft. No tenderness. No guarding or rigidity. EXTREMITIES: No edema of the feet. SKIN EXAMINATION: No rash or mass palpable. NEUROLOGICAL: Patient is awake, alert and oriented x3. Mood and affect normal. LABS: Hemoglobin 7, white count 21.8 on admission and has not been repeated since then. BUN of 31, creatinine 0.93. Liver enzymes mildly elevated. Electrolyte have been normal. The patient did have blood cultures that have been negative so far. CT report mentioned above. DIAGNOSTIC IMPRESSION AND PLAN: 1. Patient admitted to hospital with increasing shortness of breath which is likely multifactorial with high clinical suspicion for possibly fluid-related in this patient clinically not behaving as pneumonia and patient with no fever. Did have elevated white count, which could be possibly related to colony-stimulating factor, post chemo; last chemo on 05/07. 2. Patient with MULTIPLE ANTIBIOTIC ALLERGIES. That will limit the number of antibiotics we can use. PLAN: 1. We will try to obtain sputum for Gram stain and culture. Check a procalcitonin level and NT-proBNP level. 2. We will add Azactam 2 grams q.8 hours, waiting for the culture to finalize and condition to stabilize. 3. We will follow her clinical condition and culture to further adjust medication if needed. Thank you for this consultation. Will follow this patient along with you. MMODL / IJN: [id number] /
[2020-05-18] MEDS: INSULIN ASPART (NovoLOG) 100 UNIT/ML VIAL SQ SCH ×7 (06:18→22:05)
[2020-05-18] MEDS: PANTOPRAZOLE 40 MG TABLET PO SCH (06:33)
[2020-05-18] MEDS: INSULIN DETEMIR (LEVEMIR) 100 UNIT/ML SYR SQ SCH ×2 (06:33→20:43)
[2020-05-18] MEDS: ISOSORBIDE MONONITRATE ER 30 MG TAB.ER.24H PO SCH (08:26)
[2020-05-18] MEDS: BUMETANIDE 1 MG TAB PO SCH ×2 (08:26→20:42)
[2020-05-18] MEDS: CYANOCOBALAMIN 500 MCG TAB PO SCH (08:26)
[2020-05-18] MEDS: lisinopriL 20 MG TAB PO SCH (08:26)
[2020-05-18] MEDS: metFORMIN 500 MG TAB PO SCH ×2 (08:26→20:43)
[2020-05-18] MEDS: POTASSIUM CHLORIDE ER 20 MEQ TAB.ER PO SCH ×2 (08:26→20:43)
[2020-05-18] MEDS: LEVOTHYROXINE 88 MCG TAB PO SCH (08:26)
[2020-05-18] MEDS: FLUoxetine HCL 20 MG CAP PO SCH (08:26)
[2020-05-18] MEDS: MONTELUKAST 10 MG TAB PO SCH (08:26)
[2020-05-18] MEDS: METOPROLOL TARTRATE 25 MG TAB PO SCH ×2 (08:27→20:42)
[2020-05-18] MEDS: amLODIPine 10 MG TAB PO SCH (08:27)
[2020-05-18] MEDS: CLOTRIMAZOLE/BETAMETH 1-0.05% CREAM 45 GM TUBE TOPICAL SCH ×2 (08:27→20:43)
[2020-05-18] MEDS: FUROSEMIDE 10 MG/ML 4 ML VIAL IV SCH (08:27)
[2020-05-18] MEDS: NON FORMULARY DRUG (Dapagliflozin Propanediol [Farxiga] 5 MG Tablet) PO SCH (08:28)
[2020-05-18] MEDS: NYSTATIN 100,000 UNIT/GM POWD 15 GM TOPICAL SCH ×2 (08:28→20:43)
[2020-05-18] MEDS: methylPREDNISolone SOD SUCCI 40 MG/ML 1 ML VIAL IV SCH ×3 (08:30→23:55)
[2020-05-18 08:36] LABS: C Reactive Protein 85.7 mg/L (<10.0); Calcium 9.2 mg/dL (8.4-10.2); Potassium 4.8 mmol/L (3.5-5.1)
[2020-05-18 08:42] LABS: Anisocytosis Moderate; HCT 24.4 % (34.0-46.0); HGB 7.6 gm/dL (11.4-16.0); Hypochromasia Slight; MCH 32.6 pg (25.0-35.0); MCV 105.3 fL (80.0-100.0); Macrocytosis Marked; Mean Platelet Volume 10.1; Platelet Count 329 k/uL (150-450); RBC 2.31 m/uL (3.80-5.40); RDW 21.1 % (11.5-15.5)
[2020-05-18] MEDS: ALBUTEROL HFA INHALER INHALATION PRN ×3 (09:02→19:57)
[2020-05-18] MEDS: SYMBICORT 160-4.5 MCG INHALER INHALATION SCH ×2 (09:02→19:56)
[2020-05-18 09:23] LABS: Band Neutrophils % 3 %; Metamyelocytes % 4 %; Myelocytes % 5 %; Neutrophils % (M) 79 %; Nucleated Red Blood Cells 4 /100 WBC (0-0); Total Cells Counted 200
[2020-05-18 09:24] LABS: Lymphocytes # (M) 3.04 k/uL (1.0-4.8); Metamyelocytes # (M) 2.03 k/uL (0); Monocytes # (M) 2.03 k/uL (0-1.0); Myelocytes # (M) 2.54 k/uL (0); WBC 50.7 k/uL (3.8-10.6)
[2020-05-18 09:25] LABS: Poikilocytosis (M) Present; Polychromasia Present
[2020-05-18] MEDS: APIXABAN 5 MG TAB PO SCH ×2 (10:40→20:43)
[2020-05-18] MEDS: AZTREONAM 2 GM in SODIUM CHLORIDE 0.9% 100 ML IVPB SCH ×3 (10:40→23:55)
[2020-05-18] MEDS: OLANZapine 5 MG TAB PO SCH (20:43)
[2020-05-18] MEDS: LEVOFLOXACIN 250 MG TAB PO SCH (20:43)
[2020-05-18] MEDS: ATORVASTATIN 10 MG TAB PO SCH (20:43)
[2020-05-18] MEDS: ALPRAZolam 0.5 MG TAB PO PRN (20:50)
--- NOTE | 2020-05-18 22:08 | PN ---
PROGRESS NOTE DATE OF SERVICE: 05/18/2020 REASON FOR FOLLOWUP: Leukocytosis and pneumonia. INTERVAL HISTORY: The patient is currently afebrile. The patient is breathing slightly comfortably. The patient denies having any chest pain. Denies significant cough or sputum production. No nausea, vomiting, abdominal pain, no diarrhea. PHYSICAL EXAMINATION: Her blood pressure is 118/57, pulse of 83. Temperature is 99.4. She is 94% on 8 L high-flow oxygen. General description is a middle aged female lying in bed in no distress. Respiratory system: Unlabored breathing, decreased breath sounds in the base, with no wheeze. Heart S1, S2. Regular rate and rhythm. ABDOMEN: Soft, no tenderness. LABS: Hemoglobin white count up to 58,000. BUN 7.1, creatinine 1.24. DIAGNOSTIC IMPRESSION AND PLAN: Patient admitted to the hospital with increased shortness of breath which is multifactorial as well as cough, possible component of pneumonia. Did have mild elevated procalcitonin level and CRP in this patient have MULTIPLE ANTIBIOTIC ALLERGIES, currently covered with Azactam, elevated white count more likely steroid effect, as the patient has shown overall clinical improvement, no worsening of her condition and we will monitor closely and continue supportive care. MMODL / IJN: [id number] /
[2020-05-19] MEDS: INSULIN DETEMIR (LEVEMIR) 100 UNIT/ML SYR SQ SCH ×2 (07:24→20:41)
[2020-05-19] MEDS: PANTOPRAZOLE 40 MG TABLET PO SCH (07:24)
[2020-05-19] MEDS: INSULIN ASPART (NovoLOG) 100 UNIT/ML VIAL SQ SCH ×7 (07:24→20:41)
[2020-05-19 07:48] LABS: Anisocytosis Moderate; HCT 24.1 % (34.0-46.0); HGB 7.6 gm/dL (11.4-16.0); Hypochromasia Slight; MCH 33.2 pg (25.0-35.0); MCHC 31.7 g/dL (31.0-37.0); MCV 104.6 fL (80.0-100.0); Macrocytosis Marked; Mean Platelet Volume 9.1; Platelet Count 380 k/uL (150-450)
[2020-05-19 07:54] LABS: WBC 69.9 k/uL (3.8-10.6)
[2020-05-19 08:10] LABS: Albumin 3.1 g/dL (3.5-5.0); Calcium 9.2 mg/dL (8.4-10.2); Potassium 4.6 mmol/L (3.5-5.1); Total Bilirubin 0.6 mg/dL (0.2-1.3); Total Protein 5.5 g/dL (6.3-8.2)
[2020-05-19] MEDS: ALBUTEROL HFA INHALER INHALATION PRN ×3 (09:17→19:32)
[2020-05-19] MEDS: SYMBICORT 160-4.5 MCG INHALER INHALATION SCH ×2 (09:17→19:32)
[2020-05-19] MEDS: FUROSEMIDE 10 MG/ML 4 ML VIAL IV SCH (09:26)
[2020-05-19] MEDS: methylPREDNISolone SOD SUCCI 40 MG/ML 1 ML VIAL IV SCH ×3 (09:26→23:30)
[2020-05-19] MEDS: METOPROLOL TARTRATE 25 MG TAB PO SCH ×2 (09:27→20:40)
[2020-05-19] MEDS: APIXABAN 5 MG TAB PO SCH ×2 (09:27→20:40)
[2020-05-19] MEDS: BUMETANIDE 1 MG TAB PO SCH ×2 (09:27→20:40)
[2020-05-19] MEDS: POTASSIUM CHLORIDE ER 20 MEQ TAB.ER PO SCH ×2 (09:27→20:40)
[2020-05-19] MEDS: CYANOCOBALAMIN 500 MCG TAB PO SCH (09:28)
[2020-05-19] MEDS: MONTELUKAST 10 MG TAB PO SCH (09:28)
[2020-05-19] MEDS: ISOSORBIDE MONONITRATE ER 30 MG TAB.ER.24H PO SCH (09:28)
[2020-05-19] MEDS: amLODIPine 10 MG TAB PO SCH (09:28)
[2020-05-19] MEDS: LEVOTHYROXINE 88 MCG TAB PO SCH (09:28)
[2020-05-19] MEDS: NON FORMULARY DRUG (Dapagliflozin Propanediol [Farxiga] 5 MG Tablet) PO SCH (09:29)
[2020-05-19] MEDS: FLUoxetine HCL 20 MG CAP PO SCH (09:29)
[2020-05-19] MEDS: metFORMIN 500 MG TAB PO SCH ×2 (09:29→20:40)
[2020-05-19] MEDS: AZTREONAM 2 GM in SODIUM CHLORIDE 0.9% 100 ML IVPB SCH ×3 (09:30→23:30)
[2020-05-19] MEDS: CLOTRIMAZOLE/BETAMETH 1-0.05% CREAM 45 GM TUBE TOPICAL SCH ×2 (09:34→20:40)
[2020-05-19] MEDS: NYSTATIN 100,000 UNIT/GM POWD 15 GM TOPICAL SCH ×2 (09:34→20:41)
[2020-05-19] MEDS: DEXTROSE 5%-0.9% NACL 1,000 ML IV SCH ×2 (09:38→15:45)
[2020-05-19] MEDS: lisinopriL 20 MG TAB PO SCH (12:12)
--- NOTE | 2020-05-19 12:50 | P.PN ---
Subjective Progress Note Date: 05/18/20 64-year-old female one of Dr. Aldridge patient with past medical history of breast cancer, hypertension, hyperlipidemia and COPD who apparently was hospitalized at [facility] 3 weeks ago for pneumonia CHF and A. fib and has done well has been seen oncology on regular basis apparently she was diagnosed with worsening dyspnea and shortness of breath found to have significant lymph nodes in the mediastinal area with left breast mass measured 1.7, 1.4 cm biopsy of the breasts and axilla on 02/17/2020 was consistent with invasive ductal carcinoma ER/MA negative, HER-2 1+, no evidence of metastasis disease lung infiltrate and pleural effusion had resolved a Chin was started on new adjuvant dose dense of chemotherapy in April 09 she had a prolonged hospitalization no April 11 till April 24 for CHF exacerbation and she had a pleural effusion suspected pneumonia 6 L of thoracentesis of the right side was taking she had also severe leukopenia and was in ICU for long time with WBC/ANC recover about 9 days after G-CSF injection was started. [place] that her respiratory symptoms more likely inflammatory and possible BOOP she ended up having second dose of chemotherapy with G-CSF on 05/02/2020. Patient presented to [facility] emergency department complaining of severe weakness and fatigue patient profound weakness fall on the floor was in able to move her arms and legs her went to lift her out of bed to go to the bathroom and that she is basically just felt to the floor she denies any fever, nausea headache dizziness no vomiting positive mild dyspnea and shortness of breath no chest pain positive mild abdominal pain with no dysuria diarrhea constipation swelling of the legs she has generalized weakness no focal deficit. At the presentation to [place] emergency department found to have elevated troponin with proBNP was 2000 with concern of pneumonia she was giving Levaquin and vancomycin and transfer to [facility] to be under cardiology and oncology. 05/15: Patient evaluated this morning, resting in bed comfortably. She denies any shortness of breath of chest pain. She echocardiogram yesterday that showed moderate concentric left ventricular hypertrophy, normal left ventricular systolic function with an EF between 60-65%, mild aortic regurgitation, moderate mitral regurgitation, moderate tricuspid regurgitation, and moderate pulmonary hypertension. Cardiology is on consult for elevated troponin, believes elevated troponins are not related to acute coronary syndrome. She continues on Levaquin for pneumonia. Glucose is noted to be slightly elevated, she started on 5 units NovoLog with meals plus sliding scale and hold for blood sugar less than 100. 05/16: Patient noted to be resting in bed comfortably, she is in no acute distress. CT of the chest showed bilateral pleural effusions, ultrasound of the chest was ordered, showed moderate left pleural effusion. Pulmonary on consult. Interventional radiology consulted for left-sided thoracentesis. She continues on Levaquin for pneumonia, Blood cultures show no growth to date. Patient was noted to have a hypoglycemic event, glucose 145. Patient is given half amp of dextrose IV fluids were changed to D5. Levemir was decreased to 45 units. Acute coronary event has been ruled out by cardiology. Patient noted to be hypothermic with a rectal temp of 95.3, warming blankets placed on patient. 05/17: Patient evaluated this morning, resting in bed comfortably, she is in no acute distress. Plans on interventional radiology for left-sided thoracentesis canceled due to high risk and concern for pneumothorax during procedure. Patient continues to be short of breath, still on high flow oxygen at 15 L, she is currently saturating 95%. Blood cultures show no growth to date. Pulmonary and oncology continue to follow. She continues on Solu-Medrol 40 mg every 8 hours along with updraft treatments. 05/18: Patient remain in quite but shortness of breath, consult infectious freddy simon to see patient and evaluate her pneumonia, white blood cell slightly bit better patient likely for chemotherapy watch his the [facility], [facility] to still at least 5-15 L Objective - Vital Signs Vital signs: Vital Signs Temp 97.1 F L 05/18/20 08:10 Pulse 85 05/18/20 15:36 Resp 20 05/18/20 15:36 BP 112/53 05/18/20 15:36 Pulse Ox 92 L 05/18/20 15:36 Intake & Output 05/17/20 05/18/20 05/18/20 18:59 06:59 18:59 Intake Total 850 1225 Output Total 550 400 Balance 300 1225 -400 Weight 78.5 kg 75.2 kg Intake: Intake, IV Titration 50 Amount Dextrose 5%-0.9% NaCl 1, 50 000 ml @ 75 mls/hr IV . [id number] [facility] Rx#:[id number] Oral 800 1225 Output: Urine 550 400 Other: Voiding Method Bedpan Bedpan # Voids 1 1 # Bowel Movements 1 - Exam Review of systems: CONSTITUTIONAL: Well-developed no acute respiratory distress. EYES: No icterus sclerae, no conjunctivitis. EARS, NOSE, MOUTH, THROAT, and FACE: No sore throat, lymphadenopathy, carotid bruits or deformity. RESPIRATORY: Positive dyspnea and shortness of breath CARDIOVASCULAR: Positive palpitation with angina GASTROINTESTINAL: No Abd pain, Nausea or vomiting, no Diarrhea or constipation, No GI Bleed, no distention or masses. GENITOURINARY: Negative for Hematuria or UTI, no kidney stones. INTEGUMENT/BREAST: Negative for any muscular injury with mild osteoarthritis.. HEMATOLOGIC/LYMPHATIC: Positive anemia with breast cancer metastasis MUSCULOSKELTAL: Negative for Myalgia or arthralgia. NEURLOGICAL: No LOC, Sz or syncope, blurred vision dizziness or abnormality.. BEHAVIORAL/PSYCH: Negative. ENDOCRINE: Negative. - Exam General Appearance: Alert, cooperative, no distress Neck HEENT: Supple, no lymphadenopathy, no thyroid enlargement, no carotid bruits. Lungs: Decreased breath some bilateral fine rhonchi positive Chest Wall: Decrease expansion with deep inspiration no tenderness and no deformity was found on exam, no costochondral pain or discomfort. Heart: Regular rate and rhythm, S1, S2 normal, positive systolic murmur. Back: Symmetric, no curvature, ROM normal, no CVA tenderness. Abdomen: Soft, non-tender, bowel sounds active all four quadrants, no masses, no organomegaly. Extremities: 1+ edema and decreased pulses bilaterally with slight arthritis of both knees and hips. Pulses: 2+ and symmetric. Skin: Skin color, texture, tugor normal, no rashes or lesions. Neurologic: Alert oriented x3 cranial nerves II through XII intact, no motor deficit, generalized weakness - Labs CBC & Chem 7: 05/19/20 07:13 05/19/20 07:13 Labs: Abnormal Lab Results - Last 24 Hours (Table) 05/18/20 05/18/20 05/18/20 Range/Units 07:50 07:50 07:50 WBC 50.7 H* (3.8-10.6) k/uL RBC 2.31 L (3.80-5.40) m/uL Hgb 7.6 L (11.4-16.0) gm/dL Hct 24.4 L (34.0-46.0) % MCV 105.3 H (80.0-100.0) fL RDW 21.1 H (11.5-15.5) % Neutrophils # (Manual) 41.50 H (1.3-7.7) k/uL Monocytes # (Manual) 2.03 H (0-1.0) k/uL Metamyelocytes # (Man) 2.03 H (0) k/uL Myelocytes # (Manual) 2.54 H (0) k/uL Nucleated RBCs 4 H (0-0) /100 WBC Macrocytosis Marked A Chloride 108 H (98-107) mmol/L Carbon Dioxide 21 L (22-30) mmol/L BUN 71 H (7-17) mg/dL Creatinine 1.24 H (0.52-1.04) mg/dL C-Reactive Protein 85.7 H (<10.0) mg/L Procalcitonin 0.41 H (0.02-0.09) ng/mL Microbiology - Last 24 Hours (Table) 05/14/20 Unknown Blood Culture - Preliminary Blood No Growth after 72 hours Assessment and Plan Assessment: 1 non-ST DE: With elevated troponin, no sign of DE or cardiac this point this was ruled out. 2 right-sided pneumonia: Most likely gram-negative specially with recent history of neutropenia post chemotherapy, patient was giving 1 g of Vanco along with Levaquin will consult pulmonary patient might require smaller dose of steroid as well. Patient be seen infectious disease and that this medication accordingly. 3 right-sided pleural effusion: After large pleural effusion with 90 to removed recently patient is doing well at this point need to be watch over time. No pl eural effusion can be drained at this point. 4 severe generalized weakness most likely constitutional symptom secondary to chemotherapy along with her cancer and management overall continue supportive care physical therapy and occupational therapy. 5 chronic history of A. fib with RVR: Pulse rates under control currently patient will remain on atenolol 25 mg daily. Still on Eliquis 5 mg twice a day as well. 6 history of breast cancer been treated with chemotherapy with reaction on side effect of chemotherapy. 7 type 2 diabetes on insulin: Continue patient on Levemir along with Accu-Chek s liding scales coverage still on metformin as well. 8 history of COPD: Remain on Symbicort along with DuoNeb and multiple a cast and supportive O2. 9 hypothyroidism: Continue patient on levothyroxine 175 g daily. 10 GI prophylaxis: Patient to continue on pantoprazole 40 mg daily. 11 diastolic congestive heart failure: Remain on Lasix and lisinopril. 12 hypertension: Was well controlled on atenolol, Norvasc 10 mg daily, Zestril 20 mg daily. DVT prophylaxis: Remain on anticoagulation. GI prophylaxis: On Pepcid. CODE STATUS: Full code.
--- NOTE | 2020-05-19 12:53 | P.PN ---
Subjective Progress Note Date: 05/19/20 64-year-old female one of Dr. Aldridge patient with past medical history of breast cancer, hypertension, hyperlipidemia and COPD who apparently was hospitalized at [facility] 3 weeks ago for pneumonia CHF and A. fib and has done well has been seen oncology on regular basis apparently she was diagnosed with worsening dyspnea and shortness of breath found to have significant lymph nodes in the mediastinal area with left breast mass measured 1.7, 1.4 cm biopsy of the breasts and axilla on 02/17/2020 was consistent with invasive ductal carcinoma ER/FL negative, HER-2 1+, no evidence of metastasis disease lung infiltrate and pleural effusion had resolved a Chin was started on new adjuvant dose dense of chemotherapy in April 09 she had a prolonged hospitalization no April 11 till April 24 for CHF exacerbation and she had a pleural effusion suspected pneumonia 6 L of thoracentesis of the right side was taking she had also severe leukopenia and was in ICU for long time with WBC/ANC recover about 9 days after G-CSF injection was started. [place] that her respiratory symptoms more likely inflammatory and possible BOOP she ended up having second dose of chemotherapy with G-CSF on 05/02/2020. Patient presented to [facility] emergency department complaining of severe weakness and fatigue patient profound weakness fall on the floor was in able to move her arms and legs her went to lift her out of bed to go to the bathroom and that she is basically just felt to the floor she denies any fever, nausea headache dizziness no vomiting positive mild dyspnea and shortness of breath no chest pain positive mild abdominal pain with no dysuria diarrhea constipation swelling of the legs she has generalized weakness no focal deficit. At the presentation to [facility] emergency department found to have elevated troponin with proBNP was 2000 with concern of pneumonia she was giving Levaquin and vancomycin and transfer to [facility] to be under cardiology and oncology. 05/15: Patient evaluated this morning, resting in bed comfortably. She denies any shortness of breath of chest pain. She echocardiogram yesterday that showed moderate concentric left ventricular hypertrophy, normal left ventricular systolic function with an EF between 60-65%, mild aortic regurgitation, moderate mitral regurgitation, moderate tricuspid regurgitation, and moderate pulmonary hypertension. Cardiology is on consult for elevated troponin, believes elevated troponins are not related to acute coronary syndrome. She continues on Levaquin for pneumonia. Glucose is noted to be slightly elevated, she started on 5 units NovoLog with meals plus sliding scale and hold for blood sugar less than 100. 05/16: Patient noted to be resting in bed comfortably, she is in no acute distress. CT of the chest showed bilateral pleural effusions, ultrasound of the chest was ordered, showed moderate left pleural effusion. Pulmonary on consult. Interventional radiology consulted for left-sided thoracentesis. She continues on Levaquin for pneumonia, Blood cultures show no growth to date. Patient was noted to have a hypoglycemic event, glucose 145. Patient is given half amp of dextrose IV fluids were changed to D5. Levemir was decreased to 45 units. Acute coronary event has been ruled out by cardiology. Patient noted to be hypothermic with a rectal temp of 95.3, warming blankets placed on patient. 05/17: Patient evaluated this morning, resting in bed comfortably, she is in no acute distress. Plans on interventional radiology for left-sided thoracentesis canceled due to high risk and concern for pneumothorax during procedure. Patient continues to be short of breath, still on high flow oxygen at 15 L, she is currently saturating 95%. Blood cultures show no growth to date. Pulmonary and oncology continue to follow. She continues on Solu-Medrol 40 mg every 8 hours along with updraft treatments. 05/18: Patient remain in quite but shortness of breath, consult infectious freddy simon to see patient and evaluate her pneumonia, white blood cell slightly bit better patient likely for chemotherapy watch his the [facility], [facility] to still at least 5-15 L. 05/19: Patient antibiotic was changed after seen infectious disease was started on Azactam 2 gram every 8 hours she seems to do slightly better with it, oxygenation is much better than before, no need for thoracentesis at this point, lab has improved patient still seen oncology note chemotherapies done at this point. Objective - Vital Signs Vital signs: Vital Signs Temp 97.6 F 05/19/20 11:33 Pulse 85 05/19/20 11:33 Resp 22 05/19/20 11:33 BP 111/66 05/19/20 11:33 Pulse Ox 92 L 05/19/20 11:33 Intake & Output 05/18/20 05/19/20 05/19/20 18:59 06:59 18:59 Intake Total 250 Output Total 400 Balance -400 250 Weight 76.5 kg Intake: Oral 250 Output: Urine 400 Other: Voiding Method Bedpan Bedpan # Voids 0 1 # Bowel Movements 0 1 - Exam Review of systems: CONSTITUTIONAL: Well-developed no acute respiratory distress. EYES: No icterus sclerae, no conjunctivitis. EARS, NOSE, MOUTH, THROAT, and FACE: No sore throat, lymphadenopathy, carotid bruits or deformity. RESPIRATORY: Positive dyspnea and shortness of breath CARDIOVASCULAR: Positive palpitation with angina GASTROINTESTINAL: No Abd pain, Nausea or vomiting, no Diarrhea or constipation, No GI Bleed, no distention or masses. GENITOURINARY: Negative for Hematuria or UTI, no kidney stones. INTEGUMENT/BREAST: Negative for any muscular injury with mild osteoarthritis.. HEMATOLOGIC/LYMPHATIC: Positive anemia with breast cancer metastasis MUSCULOSKELTAL: Negative for Myalgia or arthralgia. NEURLOGICAL: No LOC, Sz or syncope, blurred vision dizziness or abnormality.. BEHAVIORAL/PSYCH: Negative. ENDOCRINE: Negative. - Exam General Appearance: Alert, cooperative, no distress Neck HEENT: Supple, no lymphadenopathy, no thyroid enlargement, no carotid bruits. Lungs: Decreased breath some bilateral fine rhonchi positive Chest Wall: Decrease expansion with deep inspiration no tenderness and no def ormity was found on exam, no costochondral pain or discomfort. Heart: Regular rate and rhythm, S1, S2 normal, positive systolic murmur. Back: Symmetric, no curvature, ROM normal, no CVA tenderness. Abdomen: Soft, non-tender, bowel sounds active all four quadrants, no masses, no organomegaly. Extremities: 1+ edema and decreased pulses bilaterally with slight arthritis of both knees and hips. Pulses: 2+ and symmetric. Skin: Skin color, texture, tugor normal, no rashes or lesions. Neurologic: Alert oriented x3 cranial nerves II through XII intact, no motor deficit, generalized weakness - Labs CBC & Chem 7: 05/19/20 07:13 05/19/20 07:13 Labs: Abnormal Lab Results - Last 24 Hours (Table) 05/18/20 05/19/20 05/19/20 Range/Units 07:50 07:13 07:13 WBC 69.9 H* (3.8-10.6) k/uL RBC 2.30 L (3.80-5.40) m/uL Hgb 7.6 L (11.4-16.0) gm/dL Hct 24.1 L (34.0-46.0) % MCV 104.6 H (80.0-100.0) fL RDW 21.0 H (11.5-15.5) % Macrocytosis Marked A Chloride 111 H (98-107) mmol/L BUN 79 H (7-17) mg/dL Creatinine 1.08 H (0.52-1.04) mg/dL Glucose 33 L* (74-99) mg/dL ALT 59 H (4-34) U/L Alkaline Phosphatase 414 H (38-126) U/L Total Protein 5.5 L (6.3-8.2) g/dL Albumin 3.1 L (3.5-5.0) g/dL Procalcitonin 0.41 H (0.02-0.09) ng/mL Microbiology - Last 24 Hours (Table) 05/14/20 Unknown Blood Culture - Preliminary Blood No Growth after 96 hours Assessment and Plan Assessment: 1 non-ST [place]: With elevated troponin, no sign of [place] or cardiac this point this was ruled out. 2 right-sided pneumonia: Most likely gram-negative specially with recent history of neutropenia post chemotherapy, antibiotic was changed to Azactam 2 g IV every 8 hours patient is responding better to it 3 right-sided pleural effusion: After large pleural effusion with 90 to removed recently patient is doing well at this point need to be watch over time. No pleural effusion can be drained at this point. 4 severe generalized weakness most likely constitutional symptom secondary to chemotherapy along with her cancer and management overall continue supportive care physical therapy and occupational therapy. 5 chronic history of A. fib with RVR: Pulse rates under control currently patient will remain on atenolol 25 mg daily. Still on Eliquis 5 mg twice a day as well. 6 history of breast cancer been treated with chemotherapy with reaction on side effect of chemotherapy. 7 type 2 diabetes on insulin: Continue patient on Levemir along with Accu-Chek sliding scales coverage still on metformin as well. 8 history of COPD: Remain on Symbicort along with DuoNeb and multiple a cast and supportive O2. 9 hypothyroidism: Continue patient on levothyroxine 175 g daily. 10 GI prophylaxis: Patient to continue on pantoprazole 40 mg daily. 11 diastolic congestive heart failure: Remain on Lasix and lisinopril. 12 hypertension: Was well controlled on atenolol, Norvasc 10 mg daily, Zestril 20 mg daily. DVT prophylaxis: Remain on anticoagulation. GI prophylaxis: On Pepcid. CODE STATUS: Full code. Discharge planning: In the next 48 hours patient is doing well
[2020-05-19] MEDS: ATORVASTATIN 10 MG TAB PO SCH (20:40)
[2020-05-19] MEDS: OLANZapine 5 MG TAB PO SCH (20:40)
[2020-05-19] MEDS: LEVOFLOXACIN 250 MG TAB PO SCH (20:40)
[2020-05-19] MEDS: ALPRAZolam 0.5 MG TAB PO PRN (20:44)
[2020-05-19] MEDS ORDERED: FLUCONAZOLE 100 MG TAB PO ONE (22:27)
--- NOTE | 2020-05-20 01:02 | PN ---
PROGRESS NOTE DATE OF SERVICE: 05/19/2020 REASON FOR FOLLOWUP: Pneumonia. INTERVAL HISTORY: Patient is currently afebrile. The patient is breathing more comfortably. The patient denies having any chest pain. Occasional cough. No abdominal pain. No diarrhea. PHYSICAL EXAMINATION: Blood pressure 123/70 with a pulse of 94, temperature 97.9. She is 95% on 15 L high- flow oxygen. General description is an elderly female lying in bed in no distress. Respiratory system: Unlabored breathing, decreased breath sounds in the base, with no wheeze. HEART: S1, S2. Regular rate and rhythm. ABDOMEN: Soft, no tenderness. EXTREMITIES: No edema of the feet. LABS: The patient's white count is up to 69,000. DIAGNOSTIC IMPRESSION AND PLAN: Patient admitted to the hospital with difficulty in breathing which is likely multifactorial. This patient did have a positive fluid one/plus-minus pneumonia with elevated white count more likely steroid effect, as the patient not showing worsening of her clinical condition and possible component of . Will give a dose of Diflucan and see clinical response to it. Continue Azactam and monitor clinical course closely. MMODL / IJN: [id number] /
[2020-05-20] MEDS: PANTOPRAZOLE 40 MG TABLET PO SCH (07:06)
[2020-05-20] MEDS: INSULIN ASPART (NovoLOG) 100 UNIT/ML VIAL SQ SCH ×7 (07:06→21:05)
[2020-05-20] MEDS: INSULIN DETEMIR (LEVEMIR) 100 UNIT/ML SYR SQ SCH ×2 (07:06→20:55)
--- NOTE | 2020-05-20 08:23 | XR ---
EXAMINATION TYPE: XR chest 2V DATE OF EXAM: 05/20/2020 COMPARISON: 05/14/2020 HISTORY: 64-year-old female follow-up pneumonia TECHNIQUE: AP and lateral views FINDINGS: Heart borderline enlarged. Diffuse bilateral patchy airspace opacities persist. Left anterior chest w all injection port with catheter tip at the upper SVC. IMPRESSION: Continued diffuse bilateral patchy airspace disease.
[2020-05-20 08:32] LABS: Anisocytosis Moderate; HCT 24.5 % (34.0-46.0); HGB 7.8 gm/dL (11.4-16.0); Hypochromasia Slight; MCH 33.3 pg (25.0-35.0); MCHC 31.8 g/dL (31.0-37.0); MCV 104.9 fL (80.0-100.0); Macrocytosis Marked; Mean Platelet Volume 9.2; Platelet Count 489 k/uL (150-450); RBC 2.33 m/uL (3.80-5.40); RDW 21.1 % (11.5-15.5)
[2020-05-20 08:42] LABS: WBC 83.2 k/uL (3.8-10.6)
[2020-05-20 08:48] LABS: Albumin 3.3 g/dL (3.5-5.0); Calcium 9.2 mg/dL (8.4-10.2); Potassium 4.7 mmol/L (3.5-5.1); Total Bilirubin 0.7 mg/dL (0.2-1.3); Total Protein 5.9 g/dL (6.3-8.2)
[2020-05-20] MEDS: MONTELUKAST 10 MG TAB PO SCH (09:00)
[2020-05-20] MEDS: BUMETANIDE 1 MG TAB PO SCH ×2 (09:00→20:55)
[2020-05-20] MEDS: LEVOTHYROXINE 88 MCG TAB PO SCH (09:00)
[2020-05-20] MEDS: DEXTROSE 5%-0.9% NACL 1,000 ML IV SCH (09:00)
[2020-05-20] MEDS: CYANOCOBALAMIN 500 MCG TAB PO SCH (09:01)
[2020-05-20] MEDS: ISOSORBIDE MONONITRATE ER 30 MG TAB.ER.24H PO SCH (09:01)
[2020-05-20] MEDS: metFORMIN 500 MG TAB PO SCH ×2 (09:01→20:55)
[2020-05-20] MEDS: FLUoxetine HCL 20 MG CAP PO SCH (09:01)
[2020-05-20] MEDS: amLODIPine 10 MG TAB PO SCH (09:01)
[2020-05-20] MEDS: NON FORMULARY DRUG (Dapagliflozin Propanediol [Farxiga] 5 MG Tablet) PO SCH (09:02)
[2020-05-20] MEDS: POTASSIUM CHLORIDE ER 20 MEQ TAB.ER PO SCH ×2 (09:02→20:55)
[2020-05-20] MEDS: methylPREDNISolone SOD SUCCI 40 MG/ML 1 ML VIAL IV SCH ×3 (09:02→23:17)
[2020-05-20] MEDS: METOPROLOL TARTRATE 25 MG TAB PO SCH ×2 (09:03→20:55)
[2020-05-20] MEDS: FUROSEMIDE 10 MG/ML 4 ML VIAL IV SCH (09:03)
[2020-05-20] MEDS: APIXABAN 5 MG TAB PO SCH ×2 (09:03→20:55)
[2020-05-20] MEDS: NYSTATIN 100,000 UNIT/GM POWD 15 GM TOPICAL SCH ×2 (09:03→20:55)
[2020-05-20] MEDS: CLOTRIMAZOLE/BETAMETH 1-0.05% CREAM 45 GM TUBE TOPICAL SCH ×2 (09:03→20:55)
[2020-05-20] MEDS: SYMBICORT 160-4.5 MCG INHALER INHALATION SCH ×2 (09:12→19:56)
[2020-05-20] MEDS: ALBUTEROL HFA INHALER INHALATION PRN (09:12)
[2020-05-20 09:31] LABS: Glucose,Whole Blood 153 mg/dL (75-99)
[2020-05-20 09:32] LABS: Glucose,Whole Blood 107 mg/dL (75-99)
[2020-05-20 09:34] LABS: Glucose,Whole Blood 44 mg/dL (75-99)
[2020-05-20 09:34] LABS: Glucose,Whole Blood 43 mg/dL (75-99)
[2020-05-20 09:35] LABS: Glucose,Whole Blood 143 mg/dL (75-99)
[2020-05-20 09:35] LABS: Glucose,Whole Blood 222 mg/dL (75-99)
[2020-05-20 09:35] LABS: Glucose,Whole Blood 172 mg/dL (75-99)
[2020-05-20 09:35] LABS: Glucose,Whole Blood 209 mg/dL (75-99)
[2020-05-20 09:37] LABS: Glucose,Whole Blood 103 mg/dL (75-99)
[2020-05-20 09:37] LABS: Glucose,Whole Blood 84 mg/dL (75-99)
[2020-05-20 09:38] LABS: Glucose,Whole Blood 135 mg/dL (75-99)
[2020-05-20 09:39] LABS: Glucose,Whole Blood 80 mg/dL (75-99)
[2020-05-20 09:39] LABS: Glucose,Whole Blood 79 mg/dL (75-99)
[2020-05-20 09:40] LABS: Glucose,Whole Blood 135 mg/dL (75-99)
[2020-05-20 09:40] LABS: Glucose,Whole Blood 147 mg/dL (75-99)
[2020-05-20 09:41] LABS: Glucose,Whole Blood 78 mg/dL (75-99)
[2020-05-20 11:45] LABS: Glucose,Whole Blood 122 mg/dL (75-99)
--- NOTE | 2020-05-20 12:59 | P.PN ---
Subjective Progress Note Date: 05/20/20 Principal diagnosis: Right-sided pneumonia, pleural effusion, history of breast cancer with metastasis, COPD, anemia, elevated troponin 64-year-old female one of Dr. Aldridge patient with past medical history of breast cancer, hypertension, hyperlipidemia and COPD who apparently was hospitalized at [facility] 3 weeks ago for pneumonia CHF and A. fib and has done well has been seen oncology on regular basis apparently she was diagnosed with worsening dyspnea and shortness of breath found to have significant lymph nodes in the mediastinal area with left breast mass measured 1.7, 1.4 cm biopsy of the breasts and axilla on 02/17/2020 was consistent with invasive ductal carcinoma ER/[place] negative, HER-2 1+, no evidence of metastasis disease lung infiltrate and pleural effusion had resolved gabriela Moura was started on new adjuvant dose dense of chemotherapy in April 09 she had a prolonged hospitalization no April 11 till April 24 for CHF exacerbation and she had a pleural effusion suspected pneumonia 6 L of thoracentesis of the right side was taking she had also severe leukopenia and was in ICU for long time with WBC/ANC recover about 9 days after G-CSF injection was started. [place] that her respiratory symptoms more likely inflammatory and possible BOOP she ended up having second dose of chemotherapy with G-CSF on 05/02/2020. Patient presented to [facility] emergency department complaining of severe weakness and fatigue patient profound weakness fall on the floor was in able to move her arms and legs her went to lift her out of bed to go to the bathroom and that she is basically just felt to the floor she denies any fever, nausea headache dizziness no vomiting positive mild dyspnea and shortness of breath no chest pain positive mild abdominal pain with no dysuria diarrhea constipation swelling of the legs she has generalized weakness no focal deficit. At the presentation to [facility] emergency department found to have elevated troponin with proBNP was 1999 with concern of pneumonia she was giving Levaquin and vancomycin and transfer to [facility] to be under cardiology and oncology. 05/15: Patient evaluated this morning, resting in bed comfortably. She denies any shortness of breath of chest pain. She echocardiogram yesterday that showed moderate concentric left ventricular hypertrophy, normal left ventricular systolic function with an EF between 60-65%, mild aortic regurgitation, moderate mitral regurgitation, moderate tricuspid regurgitation, and moderate pulmonary hypertension. Cardiology is on consult for elevated troponin, believes elevated troponins are not related to acute coronary syndrome. She continues on Levaquin for pneumonia. Glucose is noted to be slightly elevated, she started on 5 units NovoLog with meals plus sliding scale and hold for blood sugar less than 100. 05/16: Patient noted to be resting in bed comfortably, she is in no acute distress. CT of the chest showed bilateral pleural effusions, ultrasound of the chest was ordered, showed moderate left pleural effusion. Pulmonary on consult. Interventional radiology consulted for left-sided thoracentesis. She continues on Levaquin for pneumonia, Blood cultures show no growth to date. Patient was noted to have a hypoglycemic event, glucose 145. Patient is given half amp of dextrose IV fluids were changed to D5. Levemir was decreased to 45 units. Acute coronary event has been ruled out by cardiology. Patient noted to be hypothermic with a rectal temp of 95.3, warming blankets placed on patient. 05/17: Patient evaluated this morning, resting in bed comfortably, she is in no acute distress. Plans on interventional radiology for left-sided thoracentesis canceled due to high risk and concern for pneumothorax during procedure. Patient continues to be short of breath, still on high flow oxygen at 15 L, she is currently saturating 95%. Blood cultures show no growth to date. Pulmonary and oncology continue to follow. She continues on Solu-Medrol 40 mg every 8 hours along with updraft treatments. 05/18: Patient remain in quite but shortness of breath, consult infectious disease to see patient and evaluate her pneumonia, white blood cell slightly bit better patient likely for chemotherapy watch his the [facility] to still at least 5-15 L. 05/19: Patient antibiotic was changed after seen infectious disease was started on Azactam 2 gram every 8 hours she seems to do slightly better with it, o xygenation is much better than before, no need for thoracentesis at this point, lab has improved patient still seen oncology note chemotherapies done at this point. 05/20: Patient is clinically doing much better continue to have slight shortness of breath with exertion, white blood cell has climb up quite. Combination of infection, steroid and probably Neupogen, continue to see oncology and ID no new infection at this point. Objective - Vital Signs Vital signs: Vital Signs Temp 97.4 F L 12/27/20 04:00 Pulse 78 05/20/20 04:00 Resp 18 05/20/20 04:00 BP 147/62 05/20/20 04:00 Pulse Ox 93 L 05/19/20 23:58 Intake & Output 05/19/20 05/20/20 05/20/20 18:59 06:59 18:59 Intake Total 1065 818 Balance 1065 818 Weight 75.841 kg Intake: IV 240 240 .9 @ 20 240 240 Intake, IV Titration 200 100 Amount Aztreonam 2 gm In Sodium 200 100 Chloride 0.9% 100 ml @ 33 .3 mls/hr IVPB Q8HR [facility] Rx#:[id number] Oral 625 478 Other: Voiding Method Bedpan Bedpan Bedpan # Voids 1 1 # Bowel Movements 1 - Exam Review of systems: CONSTITUTIONAL: Well-developed no acute respiratory distress. EYES: No icterus sclerae, no conjunctivitis. EARS, NOSE, MOUTH, THROAT, and FACE: No sore throat, lymphadenopathy, carotid bruits or deformity. RESPIRATORY: Positive dyspnea and shortness of breath CARDIOVASCULAR: Positive palpitation with angina GASTROINTESTINAL: No Abd pain, Nausea or vomiting, no Diarrhea or constipation, No GI Bleed, no distention or masses. GENITOURINARY: Negative for Hematuria or UTI, no kidney stones. INTEGUMENT/BREAST: Negative for any muscular injury with mild osteoarthritis.. HEMATOLOGIC/LYMPHATIC: Positive anemia with breast cancer metastasis MUSCULOSKELTAL: Negative for Myalgia or arthralgia. NEURLOGICAL: No LOC, Sz or syncope, blurred vision dizziness or abnormality.. BEHAVIORAL/PSYCH: Negative. ENDOCRINE: Negative. - Exam General Appearance: Alert, cooperative, no distress Neck HEENT: Supple, no lymphadenopathy, no thyroid enlargement, no carotid bruits. Lungs: Decreased breath some bilateral fine rhonchi positive Chest Wall: Decrease expansion with deep inspiration no tenderness and no deformity was found on exam, no costochondral pain or discomfort. Heart: Regular rate and rhythm, S1, S2 normal, positive systolic murmur. Back: Symmetric, no curvature, ROM normal, no CVA tenderness. Abdomen: Soft, non-tender, bowel sounds active all four quadrants, no masses, no organomegaly. Extremities: 1+ edema and decreased pulses bilaterally with slight arthritis of both knees and hips. Pulses: 2+ and symmetric. Skin: Skin color, texture, tugor normal, no rashes or lesions. Neurologic: Alert oriented x3 cranial nerves II through XII intact, no motor deficit, generalized weakness - Labs CBC & Chem 7: 05/20/20 07:54 05/20/20 07:54 Labs: Abnormal Lab Results - Last 24 Hours (Table) 05/17/20 05/17/20 05/17/20 Range/Units 11:30 16:48 20:00 WBC (3.8-10.6) k/uL RBC (3.80-5.40) m/uL Hgb (11.4-16.0) gm/dL Hct (34.0-46.0) % MCV (80.0-100.0) fL RDW (11.5-15.5) % Plt Count (150-450) k/uL Macrocytosis Chloride (98-107) mmol/L Carbon Dioxide (22-30) mmol/L BUN (7-17) mg/dL POC Glucose (mg/dL) 103 H 135 H 153 H (75-99) mg/dL AST (14-36) U/L ALT (4-34) U/L Alkaline Phosphatase (38-126) U/L Total Protein (6.3-8.2) g/dL Albumin (3.5-5.0) g/dL 05/18/20 05/18/20 05/19/20 Range/Units 06:17 20:16 07:18 WBC (3.8-10.6) k/uL RBC (3.80-5.40) m/uL Hgb (11.4-16.0) gm/dL Hct (34.0-46.0) % MCV (80.0-100.0) fL RDW (11.5-15.5) % Plt Count (150-450) k/uL Macrocytosis Chloride (98-107) mmol/L Carbon Dioxide (22-30) mmol/L BUN (7-17) mg/dL POC Glucose (mg/dL) 107 H 147 H 44 L (75-99) mg/dL AST (14-36) U/L ALT (4-34) U/L Alkaline Phosphatase (38-126) U/L Total Protein (6.3-8.2) g/dL Albumin (3.5-5.0) g/dL 05/19/20 05/19/20 05/19/20 Range/Units 07:19 09:35 11:52 WBC (3.8-10.6) k/uL RBC (3.80-5.40) m/uL Hgb (11.4-16.0) gm/dL Hct (34.0-46.0) % MCV (80.0-100.0) fL RDW (11.5-15.5) % Plt Count (150-450) k/uL Macrocytosis Chloride (98-107) mmol/L Carbon Dioxide (22-30) mmol/L BUN (7-17) mg/dL POC Glucose (mg/dL) 43 L 135 H 143 H (75-99) mg/dL AST (14-36) U/L ALT (4-34) U/L Alkaline Phosphatase (38-126) U/L Total Protein (6.3-8.2) g/dL Albumin (3.5-5.0) g/dL 05/19/20 05/19/20 05/20/20 Range/Units 16:40 20:18 01:57 WBC (3.8-10.6) k/uL RBC (3.80-5.40) m/uL Hgb (11.4-16.0) gm/dL Hct (34.0-46.0) % MCV (80.0-100.0) fL RDW (11.5-15.5) % Plt Count (150-450) k/uL Macrocytosis Chloride (98-107) mmol/L Carbon Dioxide (22-30) mmol/L BUN (7-17) mg/dL POC Glucose (mg/dL) 209 H 222 H 172 H (75-99) mg/dL AST (14-36) U/L ALT (4-34) U/L Alkaline Phosphatase (38-126) U/L Total Protein (6.3-8.2) g/dL Albumin (3.5-5.0) g/dL 05/20/20 05/20/20 05/20/20 Range/Units 07:54 07:54 11:36 WBC 83.2 H* (3.8-10.6) k/uL RBC 2.33 L (3.80-5.40) m/uL Hgb 7.8 L (11.4-16.0) gm/dL Hct 24.5 L (34.0-46.0) % MCV 104.9 H (80.0-100.0) fL RDW 21.1 H (11.5-15.5) % Plt Count 489 H (150-450) k/uL Macrocytosis Marked A Chloride 109 H (98-107) mmol/L Carbon Dioxide 21 L (22-30) mmol/L BUN 71 H (7-17) mg/dL POC Glucose (mg/dL) 122 H (75-99) mg/dL AST 40 H (14-36) U/L ALT 57 H (4-34) U/L Alkaline Phosphatase 414 H (38-126) U/L Total Protein 5.9 L (6.3-8.2) g/dL Albumin 3.3 L (3.5-5.0) g/dL Microbiology - Last 24 Hours (Table) 05/14/20 Unknown Blood Culture - Preliminary Blood No Growth after 120 hours Assessment and Plan Assessment: 1 right-sided pneumonia: Most likely gram-negative specially with recent history of neutropenia post chemotherapy, antibiotic was changed to Azactam 2 g IV every 8 hours patient is responding better to it 2 right-sided pleural effusion: After large pleural effusion with 90 to removed recently patient is doing well at this point need to be watch over time. No pleural effusion can be drained at this point. 3 non-ST [place]: With elevated troponin, no sign of [place] or cardiac this point this was ruled out. 4 severe generalized weakness most likely constitutional symptom secondary to chemotherapy along with her cancer and management overall continue supportive care physical therapy and occupational therapy. 5 chronic history of A. fib with RVR: Pulse rates under control currently patient will remain on atenolol 25 mg daily. Still on Eliquis 5 mg twice a day as well. 6 history of breast cancer been treated with chemotherapy with reaction on side effect of chemotherapy. 7 type 2 diabetes on insulin: Continue patient on Levemir along with Accu-Chek sliding scales coverage still on metformin as well. 8 history of COPD: Remain on Symbicort along with DuoNeb and multiple a cast and supportive O2. 9 severe leukocytosis: Combination of her infection along with steroid and Neupogen. 10 GI prophylaxis: Patient to continue on pantoprazole 40 mg daily. 11 diastolic congestive heart failure: Remain on Lasix and lisinopril. 12 hypertension: Was well controlled on atenolol, Norvasc 10 mg daily, Zestril 20 mg daily. DVT prophylaxis: Remain on anticoagulation. GI prophylaxis: On Pepcid. CODE STATUS: Full code.
[2020-05-20] MEDS ORDERED: VANCOMYCIN IV PER PHARMACY 1 EACH MISC MISCELLANE PRN (13:00)
[2020-05-20] MEDS: lisinopriL 20 MG TAB PO SCH (13:03)
[2020-05-20] MEDS: AZTREONAM 2 GM in SODIUM CHLORIDE 0.9% 100 ML IVPB SCH ×2 (13:39→23:17)
[2020-05-20] MEDS: VANCOMYCIN 1,500 MG in SODIUM CHLORIDE 0.9% 250 ML IVPB SCH (14:42)
[2020-05-20 17:04] LABS: Glucose,Whole Blood 135 mg/dL (75-99)
[2020-05-20 20:34] LABS: Glucose,Whole Blood 176 mg/dL (75-99)
[2020-05-20] MEDS: ALPRAZolam 0.5 MG TAB PO PRN (20:54)
[2020-05-20] MEDS: LEVOFLOXACIN 250 MG TAB PO SCH (20:55)
[2020-05-20] MEDS: ATORVASTATIN 10 MG TAB PO SCH (20:55)
--- NOTE | 2020-05-20 23:14 | PN ---
PROGRESS NOTE DATE OF SERVICE: 05/20/2020 REASON FOR FOLLOWUP: Pneumonia and elevated white count. INTERVAL HISTORY: Patient is currently afebrile. The patient is breathing slightly comfortably, still requiring high-flow nasal cannula oxygen. Denies any chest pain. She did have occasional cough. No sputum. No nausea. No vomiting. No diarrhea. No abdominal pain. PHYSICAL EXAMINATION: Blood pressure 132/76, pulse of 86, temperature 97.4. She is 94% on 15 L high-flow oxygen. General description is an elderly female up in the bed in no distress. Respiratory system: Unlabored breathing with decreased intensity in breath sounds. No wheeze. HEART: S1, S2. Regular rate and rhythm. ABDOMEN: Soft, no tenderness. Extremities are no edema of the feet. LABS: Hemoglobin is 7.1, white count 23.2. BUN of 7, creatinine 0.99. DIAGNOSTIC IMPRESSION AND PLAN: Patient with acute respiratory failure which is multifactorial with possible component of pneumonia. The patient did have significant elevated white count more likely related to steroid effect and Neupogen as the patient has shown overall improvement as far as her respiratory status is concerned. We will continue the patient on Azactam, vanco was to cover for the gram-positive. Obtain a sputum and monitor clinical course closely. MMODL / IJN: [id number] /
[2020-05-20] MEDS: OLANZapine 5 MG TAB PO SCH (23:18)
[2020-05-21] MEDS: INSULIN DETEMIR (LEVEMIR) 100 UNIT/ML SYR SQ SCH (06:02)
[2020-05-21] MEDS: INSULIN ASPART (NovoLOG) 100 UNIT/ML VIAL SQ SCH ×7 (06:02→20:43)
[2020-05-21] MEDS: PANTOPRAZOLE 40 MG TABLET PO SCH (06:04)
[2020-05-21 06:17] LABS: Glucose,Whole Blood 78 mg/dL (75-99)
[2020-05-21 06:17] LABS: Glucose,Whole Blood 54 mg/dL (75-99)
[2020-05-21] MEDS: AZTREONAM 2 GM in SODIUM CHLORIDE 0.9% 100 ML IVPB SCH ×3 (06:25→20:43)
[2020-05-21 07:39] LABS: Anisocytosis Moderate; HCT 25.2 % (34.0-46.0); HGB 7.8 gm/dL (11.4-16.0); Hypochromasia Moderate; MCH 32.6 pg (25.0-35.0); MCHC 31.1 g/dL (31.0-37.0); Macrocytosis Marked; Mean Platelet Volume 9.3; Platelet Count 596 k/uL (150-450); Poikilocytosis Slight; RDW 22.1 % (11.5-15.5)
[2020-05-21 08:00] LABS: WBC 93.9 k/uL (3.8-10.6)
[2020-05-21 08:13] LABS: Albumin 3.1 g/dL (3.5-5.0); Calcium 9.1 mg/dL (8.4-10.2); Potassium 4.7 mmol/L (3.5-5.1); Total Bilirubin 1.1 mg/dL (0.2-1.3); Total Protein 5.5 g/dL (6.3-8.2)
[2020-05-21] MEDS: metFORMIN 500 MG TAB PO SCH ×2 (08:25→20:42)
[2020-05-21] MEDS: LEVOTHYROXINE 88 MCG TAB PO SCH (08:25)
[2020-05-21] MEDS: MONTELUKAST 10 MG TAB PO SCH (08:25)
[2020-05-21] MEDS: POTASSIUM CHLORIDE ER 20 MEQ TAB.ER PO SCH ×2 (08:25→20:42)
[2020-05-21] MEDS: ISOSORBIDE MONONITRATE ER 30 MG TAB.ER.24H PO SCH (08:25)
[2020-05-21] MEDS: FLUoxetine HCL 20 MG CAP PO SCH (08:25)
[2020-05-21] MEDS: amLODIPine 10 MG TAB PO SCH (08:25)
[2020-05-21] MEDS: lisinopriL 20 MG TAB PO SCH (08:25)
[2020-05-21] MEDS: METOPROLOL TARTRATE 25 MG TAB PO SCH ×2 (08:26→20:42)
[2020-05-21] MEDS: CYANOCOBALAMIN 500 MCG TAB PO SCH (08:26)
[2020-05-21] MEDS: NON FORMULARY DRUG (Dulaglutide [Trulicity] 0.75 MG/0.5 ML Pen.Injctr) SQ SCH (08:26)
[2020-05-21] MEDS: CLOTRIMAZOLE/BETAMETH 1-0.05% CREAM 45 GM TUBE TOPICAL SCH ×2 (08:27→20:43)
[2020-05-21] MEDS: NON FORMULARY DRUG (Dapagliflozin Propanediol [Farxiga] 5 MG Tablet) PO SCH (08:27)
[2020-05-21] MEDS: NYSTATIN 100,000 UNIT/GM POWD 15 GM TOPICAL SCH ×2 (08:27→20:43)
[2020-05-21] MEDS: APIXABAN 5 MG TAB PO SCH ×2 (08:27→20:43)
[2020-05-21] MEDS: methylPREDNISolone SOD SUCCI 40 MG/ML 1 ML VIAL IV SCH ×3 (08:27→23:25)
[2020-05-21] MEDS: FUROSEMIDE 10 MG/ML 4 ML VIAL IV SCH (08:27)
[2020-05-21] MEDS: BUMETANIDE 1 MG TAB PO SCH ×2 (08:28→20:42)
[2020-05-21] MEDS: ALBUTEROL HFA INHALER INHALATION PRN ×3 (08:29→19:36)
[2020-05-21] MEDS: SYMBICORT 160-4.5 MCG INHALER INHALATION SCH ×2 (08:29→19:36)
[2020-05-21] MEDS ORDERED: FUROSEMIDE 10 MG/ML 4 ML VIAL IV SCH (09:00)
[2020-05-21] MEDS ORDERED: LOPERAMIDE 2 MG CAP PO PRN (09:21)
--- NOTE | 2020-05-21 09:37 | XR ---
EXAMINATION TYPE: XR chest 1V portable DATE OF EXAM: 05/21/2020 COMPARISON: Prior chest x-ray 05/20/[address] 05/15/2020 HISTORY: Pneumonia, cough TECHNIQUE: Single frontal view of the chest is obtained. FINDINGS: Left-sided central venous catheter, port is stable, distal tip is overlying superior vena cava. There is no evident pneumothorax. Patchy density persists within both lungs. Heart size is stab le. Aorta is dense. Prominent aorticopulmonary window nodes are again seen. Some blunting the costoph renic angle on the right. IMPRESSION: Correlate for pneumonia. Mediastinal adenopathy. Pleural effusion.
--- NOTE | 2020-05-21 11:20 | P.PN ---
Subjective Right-sided pneumonia, pleural effusion, history of breast cancer with metastasis, COPD, anemia, elevated troponin 64-year-old female one of Dr. Aldridge patient with past medical history of breast cancer, hypertension, hyperlipidemia and COPD who apparently was hospitalized at [facility] 3 weeks ago for pneumonia CHF and A. fib and has done well has been seen oncology on regular basis apparently she was diagnosed with worsening dyspnea and shortness of breath found to have significant lymph nodes in the mediastinal area with left breast mass measured 1.7, 1.4 cm biopsy of the breasts and axilla on 02/17/2020 was consistent with invasive ductal carcinoma ER/[place] negative, HER-2 1+, no evidence of metastasis disease lung infiltrate and pleural effusion had resolved gabriela Moura was started on new adjuvant dose dense of chemotherapy in April 09 she had a prolonged hospitalization no April 11 till April 24 for CHF exacerbation and she had a pleural effusion suspected pneumonia 6 L of thoracentesis of the right side was taking she had also severe leukopenia and was in ICU for long time with WBC/ANC recover about 9 days after G-CSF injection was started. [place] that her respiratory symptoms more likely inflammatory and possible BOOP she ended up having second dose of chemotherapy with G-CSF on 05/02/2020. Patient presented to [facility] emergency department complaining of severe weakness and fatigue patient profound weakness fall on the floor was in able to move her arms and legs her went to lift her out of bed to go to the bathroom and that she is basically just felt to the floor she denies any fever, nausea headache dizziness no vomiting positive mild dyspnea and shortness of breath no chest pain positive mild abdominal pain with no dysuria diarrhea constipation swelling of the legs she has generalized weakness no focal deficit. At the presentation to [place] emergency department found to have elevated troponin with proBNP was 1999 with concern of pneumonia she was giving Levaquin and vancomycin and transfer to [facility] to be under cardiology and oncology. 05/15: Patient evaluated this morning, resting in bed comfortably. She denies any shortness of breath of chest pain. She echocardiogram yesterday that showed moderate concentric left ventricular hypertrophy, normal left ventricular systolic function with an EF between 60-65%, mild aortic regurgitation, moderate mitral regurgitation, moderate tricuspid regurgitation, and moderate pulmonary hypertension. Cardiology is on consult for elevated troponin, believes elevated troponins are not related to acute coronary syndrome. She continues on Levaquin for pneumonia. Glucose is noted to be slightly elevated, she started on 5 units NovoLog with meals plus sliding scale and hold for blood sugar less than 100. 05/16: Patient noted to be resting in bed comfortably, she is in no acute distress. CT of the chest showed bilateral pleural effusions, ultrasound of the chest was ordered, showed moderate left pleural effusion. Pulmonary on consult. Interventional radiology consulted for left-sided thoracentesis. She continues on Levaquin for pneumonia, Blood cultures show no growth to date. Patient was noted to have a hypoglycemic event, glucose 145. Patient is given half amp of dextrose IV fluids were changed to D5. Levemir was decreased to 45 units. Acute coronary event has been ruled out by cardiology. Patient noted to be hypothermic with a rectal temp of 95.3, warming blankets placed on patient. 05/17: Patient evaluated this morning, resting in bed comfortably, she is in no acute distress. Plans on interventional radiology for left-sided thoracentesis canceled due to high risk and concern for pneumothorax during procedure. Patient continues to be short of breath, still on high flow oxygen at 15 L, she is currently saturating 95%. Blood cultures show no growth to date. Pulmonary and oncology continue to follow. She continues on Solu-Medrol 40 mg every 8 hours along with updraft treatments. 05/18: Patient remain in quite but shortness of breath, consult infectious disease to see patient and evaluate her pneumonia, white blood cell slightly bit better patient likely for chemotherapy [facility] to still at least 5-15 L. 05/19: Patient antibiotic was changed after seen infectious disease was started on Azactam 2 gram every 8 hours she seems to do slightly better with it, oxygenation is much better than before, no need for thoracentesis at this point, lab has improved patient still seen oncology note chemotherapies done at this point. 05/20: Patient is clinically doing much better continue to have slight shortness of breath with exertion, white blood cell has climb up quite. Combination of infection, steroid and probably Neupogen, continue to see oncology and ID no new infection at this point. 05/21: Patient evaluated this morning, resting in bed, she is having a little bit more shortness of breath today. Her oxygen saturation was noted to drop to 75% on high flow 15 L patient was then switched to a nonrebreather, she is currently 93%, she is tachypneic. Repeat chest x-ray shows persistent patchy densities in both lungs, some blunting at the costophrenic angle on the right, correlate for pneumonia also mediastinal adenopathy and pleural effusion. White cell continues to increase, 93.9 today, hemoglobin unchanged from yesterday at 7.8. Patient has complaints of frequent diarrhea, C. diff was negative repeat Covid test was negative as well. Patient continues on Aztreonam and vancomycin. Infectious disease, pulmonary and oncology on consult. Objective - Vital Signs Vital signs: Vital Signs Temp 96.7 F L 05/21/20 08:40 Pulse 89 05/21/20 08:40 Resp 20 05/21/20 08:40 BP 118/67 05/21/20 08:40 Pulse Ox 93 L 05/21/20 08:50 Intake & Output 05/20/20 05/21/20 05/21/20 18:59 06:59 18:59 Intake Total 1958 250 240 Output Total 600 350 Balance 1358 -100 240 Weight 78.5 kg Intake: IV 240 .9 @ 20 240 Intake, IV Titration 100 Amount Aztreonam 2 gm In Sodium 100 Chloride 0.9% 100 ml @ 33 .3 mls/hr IVPB Q8HR [facility] Rx#:[id number] Oral 1618 250 240 Output: Urine 600 350 Other: Voiding Method Bedpan Bedpan Bedpan # Voids 1 2 # Bowel Movements 1 1 1 - Constitutional General appearance: Present: cooperative, mild distress - EENT Eyes: Present: EOMI, PERRLA, normal appearance ENT: Present: hearing grossly normal, normal oropharynx. Absent: pharyngeal erythema, thrush - Neck Neck: Present: normal ROM. Absent: lymphadenopathy, stridor, thyromegaly - Respiratory Respiratory: bilateral: diminished, rhonchi, wheezing, negative: dullness, rales - Cardiovascular Rhythm: regular Heart sounds: normal: S1, S2 Abnormal Heart Sounds: Present: systolic murmur - Gastrointestinal General gastrointestinal: Present: normal bowel sounds, soft. Absent: distended, hepatomegaly, organomegaly, tenderness - Neurologic Neurologic: Present: CNII-XII intact. Absent: focal deficits - Musculoskeletal Musculoskeletal: Present: generalized weakness, strength equal bilaterally. Absent: right sided weakness - Psychiatric Psychiatric: Present: A&O x's 3, appropriate affect - Labs CBC & Chem 7: 05/21/20 07:14 05/21/20 07:14 Labs: Abnormal Lab Results - Last 24 Hours (Table) 05/20/20 05/20/20 05/20/20 Range/Units 11:36 17:02 20:32 WBC (3.8-10.6) k/uL RBC (3.80-5.40) m/uL Hgb (11.4-16.0) gm/dL Hct (34.0-46.0) % MCV (80.0-100.0) fL RDW (11.5-15.5) % Plt Count (150-450) k/uL Macrocytosis Chloride (98-107) mmol/L BUN (7-17) mg/dL POC Glucose (mg/dL) 122 H 135 H 176 H (75-99) mg/dL AST (14-36) U/L ALT (4-34) U/L Alkaline Phosphatase (38-126) U/L Total Protein (6.3-8.2) g/dL Albumin (3.5-5.0) g/dL 05/21/20 05/21/20 05/21/20 Range/Units 05:57 07:14 07:14 WBC 93.9 H* (3.8-10.6) k/uL RBC 2.40 L (3.80-5.40) m/uL Hgb 7.8 L (11.4-16.0) gm/dL Hct 25.2 L (34.0-46.0) % MCV 105.0 H (80.0-100.0) fL RDW 22.1 H (11.5-15.5) % Plt Count 596 H (150-450) k/uL Macrocytosis Marked A Chloride 111 H (98-107) mmol/L BUN 70 H (7-17) mg/dL POC Glucose (mg/dL) 54 L (75-99) mg/dL AST 43 H (14-36) U/L ALT 54 H (4-34) U/L Alkaline Phosphatase 395 H (38-126) U/L Total Protein 5.5 L (6.3-8.2) g/dL Albumin 3.1 L (3.5-5.0) g/dL Microbiology - Last 24 Hours (Table) 05/14/20 Unknown Blood Culture - Final Blood No Growth after 144 hours Assessment and Plan Plan: 1 right-sided pneumonia: Most likely gram-negative specially with recent history of neutropenia post chemotherapy, antibiotic was changed to Azactam 2 g IV every 8 hours, along with vancomycin 2 right-sided pleural effusion: After large pleural effusion with 90 to removed recently patient is doing well at this point need to be watch over time. No pleural effusion can be drained at this point. 3 non-ST [place]: With elevated troponin, no sign of [place] or cardiac this point this was ruled out. 4 severe generalized weakness most likely constitutional symptom secondary to chemotherapy along with her cancer and management overall continue supportive care physical therapy and occupational therapy. 5 chronic history of A. fib with RVR: Pulse rates under control currently patient will remain on atenolol 25 mg daily. Still on Eliquis 5 mg twice a day as well. 6 history of breast cancer been treated with chemotherapy with reaction on side effect of chemotherapy. 7 type 2 diabetes on insulin: Continue patient on Levemir along with Accu-Chek sliding scales coverage still on metformin as well. 8 history of COPD: Remain on Symbicort along with DuoNeb and multiple a cast and supportive O2. 9 severe leukocytosis: Combination of her infection along with steroid and Neupogen. 10 GI prophylaxis: Patient to continue on pantoprazole 40 mg daily. 11 diastolic congestive heart failure: Remain on Lasix and lisinopril. 12 hypertension: Was well controlled on atenolol, Norvasc 10 mg daily, Zestril 20 mg daily. 13. Diarrhea. C. diff was negative, continue Imodium DVT prophylaxis: Remain on anticoagulation. GI prophylaxis: On Pepcid. CODE STATUS: Full code. The above impression and plan of care have been discussed and directed by signing physician. Luzma Ivey nurse practitioner acting as scribe for signing physician.
[2020-05-21 11:58] LABS: Glucose,Whole Blood 189 mg/dL (75-99)
[2020-05-21] MEDS: VANCOMYCIN 1,500 MG in SODIUM CHLORIDE 0.9% 250 ML IVPB SCH (13:56)
[2020-05-21 16:34] LABS: Glucose,Whole Blood 227 mg/dL (75-99)
[2020-05-21] MEDS ORDERED: SODIUM CHLORIDE 0.65% NASAL SPRAY 44 ML BTL NASAL PRN (17:41)
[2020-05-21 20:19] LABS: Glucose,Whole Blood 240 mg/dL (75-99)
[2020-05-21] MEDS: OXYMETAZOLINE 0.05% NASL SPRAY 1 SPRAY BOTTLE NASAL SCH (20:37)
[2020-05-21] MEDS: ATORVASTATIN 10 MG TAB PO SCH (20:42)
[2020-05-21] MEDS: LEVOFLOXACIN 250 MG TAB PO SCH (20:42)
[2020-05-21] MEDS: OLANZapine 5 MG TAB PO SCH (20:43)
[2020-05-21] MEDS ORDERED: FUROSEMIDE 10 MG/ML 4 ML VIAL IV STA (22:40)
--- NOTE | 2020-05-21 22:57 | PN ---
PROGRESS NOTE DATE OF SERVICE: 05/21/2020 REASON FOR FOLLOWUP: 1. Pneumonia. 2. Elevated white count. INTERVAL HISTORY: The patient is currently afebrile. She is complaining of some shortness of breath today. She did have minimal cough; no sputum. No nausea, no vomiting, no abdominal pain or diarrhea. PHYSICAL EXAMINATION: Blood pressure 125/73 with a pulse of 86, temperature 97.6. She is 88% on high-flow oxygen. General description is an elderly female lying in bed in no distress. RESPIRATORY SYSTEM: Unlabored breathing with decreased intensity of breath sounds. No wheeze. HEART: S1, S2. Regular rate and rhythm. ABDOMEN: Soft. There is no tenderness. EXTREMITIES: No edema of the feet. LABS: Hemoglobin is 7.8, white count of 93.9, BUN of 70, creatinine 1.04. DIAGNOSTIC IMPRESSION AND PLAN: 1. Patient with acute respiratory failure which is multifactorial in this patient with a possible component of plus/minus pneumonia. Patient is covered with broad- spectrum antibiotic; to continue in the form of Azactam and vancomycin and Levaquin. 2. Patient with elevated white count, more likely steroid effect, though she has received Neupogen and needs to be monitored closely. Continue with supportive care. MMODL / IJN: [id number] /
[2020-05-22] MEDS: AZTREONAM 2 GM in SODIUM CHLORIDE 0.9% 100 ML IVPB SCH ×3 (06:01→21:38)
[2020-05-22 07:08] LABS: Glucose,Whole Blood 143 mg/dL (75-99)
[2020-05-22] MEDS: INSULIN ASPART (NovoLOG) 100 UNIT/ML VIAL SQ SCH ×7 (07:11→20:32)
[2020-05-22] MEDS: ALBUTEROL HFA INHALER INHALATION PRN ×3 (08:12→20:12)
[2020-05-22] MEDS: SYMBICORT 160-4.5 MCG INHALER INHALATION SCH ×2 (08:13→20:12)
[2020-05-22 08:26] LABS: Anisocytosis Moderate; HCT 24.5 % (34.0-46.0); HGB 7.7 gm/dL (11.4-16.0); Hypochromasia Slight; MCH 32.8 pg (25.0-35.0); MCHC 31.5 g/dL (31.0-37.0); MCV 104.1 fL (80.0-100.0); Macrocytosis Marked; Mean Platelet Volume 8.6; Platelet Count 647 k/uL (150-450); Poikilocytosis Slight; RBC 2.35 m/uL (3.80-5.40); RDW 22.1 % (11.5-15.5)
[2020-05-22 08:32] LABS: WBC 93.6 k/uL (3.8-10.6)
[2020-05-22 08:37] LABS: Albumin 3.2 g/dL (3.5-5.0); Potassium 4.6 mmol/L (3.5-5.1); Total Bilirubin 1.5 mg/dL (0.2-1.3); Total Protein 5.5 g/dL (6.3-8.2)
[2020-05-22] MEDS: APIXABAN 5 MG TAB PO SCH (08:37)
[2020-05-22] MEDS: methylPREDNISolone SOD SUCCI 40 MG/ML 1 ML VIAL IV SCH ×3 (08:46→23:14)
[2020-05-22] MEDS: FUROSEMIDE 10 MG/ML 4 ML VIAL IV SCH (08:46)
[2020-05-22] MEDS: VANCOMYCIN 1,500 MG in SODIUM CHLORIDE 0.9% 250 ML IVPB SCH (08:46)
[2020-05-22] MEDS: CYANOCOBALAMIN 500 MCG TAB PO SCH (08:46)
[2020-05-22] MEDS: MONTELUKAST 10 MG TAB PO SCH (08:46)
[2020-05-22] MEDS: amLODIPine 10 MG TAB PO SCH (08:47)
[2020-05-22] MEDS: metFORMIN 500 MG TAB PO SCH (08:47)
[2020-05-22] MEDS: METOPROLOL TARTRATE 25 MG TAB PO SCH ×2 (08:47→20:31)
[2020-05-22] MEDS: lisinopriL 20 MG TAB PO SCH (08:47)
[2020-05-22] MEDS: PANTOPRAZOLE 40 MG TABLET PO SCH (08:47)
[2020-05-22] MEDS: BUMETANIDE 1 MG TAB PO SCH ×2 (08:48→20:31)
[2020-05-22] MEDS: FLUoxetine HCL 20 MG CAP PO SCH (08:48)
[2020-05-22] MEDS: LEVOTHYROXINE 88 MCG TAB PO SCH (08:48)
[2020-05-22] MEDS: ISOSORBIDE MONONITRATE ER 30 MG TAB.ER.24H PO SCH (08:48)
[2020-05-22] MEDS: POTASSIUM CHLORIDE ER 20 MEQ TAB.ER PO SCH ×2 (08:48→20:31)
[2020-05-22] MEDS: NYSTATIN 100,000 UNIT/GM POWD 15 GM TOPICAL SCH ×2 (08:49→20:32)
[2020-05-22] MEDS: OXYMETAZOLINE 0.05% NASL SPRAY 1 SPRAY BOTTLE NASAL SCH ×2 (08:49→20:32)
[2020-05-22] MEDS: NON FORMULARY DRUG (Dapagliflozin Propanediol [Farxiga] 5 MG Tablet) PO SCH (08:57)
[2020-05-22] MEDS: CLOTRIMAZOLE/BETAMETH 1-0.05% CREAM 45 GM TUBE TOPICAL SCH ×2 (08:57→20:32)
--- NOTE | 2020-05-22 10:45 | P.PN ---
Subjective Progress Note Date: 05/22/20 Recurrent hospitalizations and respiratory issues, which began prior to treatment for her localized cancer. Overall her toleration to chemotherapy has been adequate and she clinically has noticeable response, with decreased palpable breast mass. From an oncologic standpoint, given her local disease and response to treatment, continuation of treatment for curative intent remains appropriate. Patient has been evaluated by cardiology and pulmonary and felt the issues that are resulting in her hospitalizations are not related to her current cancer or treatment. Objective - Vital Signs Vital signs: Vital Signs Temp 98 F 05/22/20 08:00 Pulse 98 05/22/20 08:00 Resp 18 05/22/20 08:00 BP 118/71 05/22/20 08:00 Pulse Ox 91 L 05/22/20 08:18 Intake & Output 05/21/20 05/22/20 05/22/20 18:59 06:59 18:59 Intake Total 1052 580 240 Output Total 1120 Balance 1052 -540 240 Weight 78 kg Intake: IV 240 240 .9 @ 20 240 240 Intake, IV Titration 350 100 Amount Aztreonam 2 gm In Sodium 100 100 Chloride 0.9% 100 ml @ 33 .3 mls/hr IVPB Q8H [facility] Rx #:[id number] Vancomycin 1,500 mg In 250 Sodium Chloride 0.9% 250 ml @ 125 mls/hr IVPB Q18H [facility] Rx#:[id number] Oral 462 240 240 Output: Urine 1120 Other: Voiding Method Bedpan Indwelling Catheter Indwelling Catheter # Voids 1 1 # Bowel Movements 1 1 - Exam - Constitutional General appearance: Present: cooperative, mild distress, obese - EENT Eyes: Present: anicteric sclerae, EOMI ENT: Present: hearing grossly normal, normal oropharynx - Respiratory Respiratory: bilateral: diminished - Cardiovascular Rhythm: irregularly irregular Heart sounds: normal: S1, S2 Abnormal Heart Sounds: Absent: systolic murmur, diastolic murmur, rub, S3 Gallop, S4 Gallop, click, other - Peripheral edema leg Peripheral Edema: bilateral: None - Gastrointestinal General gastrointestinal: Present: normal bowel sounds, soft - Integumentary Integumentary: Present: pale - Neurologic Neurologic: Present: CNII-XII intact - Musculoskeletal Musculoskeletal: Present: generalized weakness, strength equal bilaterally - Psychiatric Psychiatric: Present: A&O x's 3, appropriate affect, intact judgment & insight - Labs CBC & Chem 7: 05/22/20 08:14 05/22/20 08:14 Labs: Abnormal Lab Results - Last 24 Hours (Table) 05/21/20 05/21/20 05/21/20 Range/Units 07:14 11:56 16:32 WBC (3.8-10.6) k/uL RBC (3.80-5.40) m/uL Hgb (11.4-16.0) gm/dL Hct (34.0-46.0) % MCV (80.0-100.0) fL RDW (11.5-15.5) % Plt Count (150-450) k/uL Macrocytosis Chloride (98-107) mmol/L BUN (7-17) mg/dL Creatinine (0.52-1.04) mg/dL Glucose (74-99) mg/dL POC Glucose (mg/dL) 189 H 227 H (75-99) mg/dL Total Bilirubin (0.2-1.3) mg/dL AST (14-36) U/L ALT (4-34) U/L Alkaline Phosphatase (38-126) U/L Total Protein (6.3-8.2) g/dL Albumin (3.5-5.0) g/dL Vitamin B12 >4000.0 H (211-911) pg/mL 05/21/20 05/22/20 05/22/20 Range/Units 20:17 07:06 08:14 WBC 93.6 H* (3.8-10.6) k/uL RBC 2.35 L (3.80-5.40) m/uL Hgb 7.7 L (11.4-16.0) gm/dL Hct 24.5 L (34.0-46.0) % MCV 104.1 H (80.0-100.0) fL RDW 22.1 H (11.5-15.5) % Plt Count 647 H (150-450) k/uL Macrocytosis Marked A Chloride (98-107) mmol/L BUN (7-17) mg/dL Creatinine (0.52-1.04) mg/dL Glucose (74-99) mg/dL POC Glucose (mg/dL) 240 H 143 H (75-99) mg/dL Total Bilirubin (0.2-1.3) mg/dL AST (14-36) U/L ALT (4-34) U/L Alkaline Phosphatase (38-126) U/L Total Protein (6.3-8.2) g/dL Albumin (3.5-5.0) g/dL Vitamin B12 (211-911) pg/mL 05/22/20 Range/Units 08:14 WBC (3.8-10.6) k/uL RBC (3.80-5.40) m/uL Hgb (11.4-16.0) gm/dL Hct (34.0-46.0) % MCV (80.0-100.0) fL RDW (11.5-15.5) % Plt Count (150-450) k/uL Macrocytosis Chloride 109 H (98-107) mmol/L BUN 75 H (7-17) mg/dL Creatinine 1.09 H (0.52-1.04) mg/dL Glucose 157 H (74-99) mg/dL POC Glucose (mg/dL) (75-99) mg/dL Total Bilirubin 1.5 H (0.2-1.3) mg/dL AST 44 H (14-36) U/L ALT 52 H (4-34) U/L Alkaline Phosphatase 412 H (38-126) U/L Total Protein 5.5 L (6.3-8.2) g/dL Albumin 3.2 L (3.5-5.0) g/dL Vitamin B12 (211-911) pg/mL Assessment and Plan (1) Breast cancer Current Visit: Yes Status: Acute Priority: High Code(s): C50.919 - MALIGNANT NEOPLASM OF UNSP SITE OF UNSPECIFIED FEMALE BREAST SNOMED Code(s): 443638700 (2) Pneumonia Current Visit: Yes Status: Acute Priority: High Code(s): J18.9 - PNEUMONIA, UNSPECIFIED ORGANISM SNOMED Code(s): 998440830 (3) Shortness of breath Current Visit: Yes Status: Acute Priority: High Code(s): R06.02 - SHORTNESS OF BREATH SNOMED Code(s): 627292334 (4) CHF (congestive heart failure) Current Visit: No Status: Chronic Priority: Medium Code(s): I50.9 - HEART FAILURE, UNSPECIFIED SNOMED Code(s): 28721649 Plan: Treatment for Breast Cancer (Curative intent) to continue, Dr. Leung has discussed with cardiology and Pulmonary and not felt to be related to treatment as hospitalizations began prior to treatment one. Clinical response to treatment for breast cancer evidenced with reduction of palpable breast mass. Physician Attest: I have completed the full history and physical and developed the above impression and plan, agree with dictation, dictated as a scribe
--- NOTE | 2020-05-22 11:18 | P.PN ---
Subjective Right-sided pneumonia, pleural effusion, history of breast cancer with metastasis, COPD, anemia, elevated troponin 64-year-old female one of Dr. Aldridge patient with past medical history of breast cancer, hypertension, hyperlipidemia and COPD who apparently was hospitalized at [facility] 3 weeks ago for pneumonia CHF and A. fib and has done well has been seen oncology on regular basis apparently she was diagnosed with worsening dyspnea and shortness of breath found to have significant lymph nodes in the mediastinal area with left breast mass measured 1.7, 1.4 cm biopsy of the breasts and axilla on 02/17/2020 was consistent with invasive ductal carcinoma ER/MI negative, HER-2 1+, no evidence of metastasis disease lung infiltrate and pleural effusion had resolved gabriela Moura was started on new adjuvant dose dense of chemotherapy in April 09 she had a prolonged hospitalization no April 11 till April 24 for CHF exacerbation and she had a pleural effusion suspected pneumonia 6 L of thoracentesis of the right side was taking she had also severe leukopenia and was in ICU for long time with WBC/ANC recover about 9 days after G-CSF injection was started. [place] that her respiratory symptoms more likely inflammatory and possible BOOP she ended up having second dose of chemotherapy with G-CSF on 05/02/2020. Patient presented to [facility] emergency department complaining of severe weakness and fatigue patient profound weakness fall on the floor was in able to move her arms and legs her went to lift her out of bed to go to the bathroom and that she is basically just felt to the floor she denies any fever, nausea headache dizziness no vomiting positive mild dyspnea and shortness of breath no chest pain positive mild abdominal pain with no dysuria diarrhea constipation swelling of the legs she has generalized weakness no focal deficit. At the presentation to [place] emergency department found to have elevated troponin with proBNP was 1999 with concern of pneumonia she was giving Levaquin and vancomycin and transfer to [facility] to be under cardiology and oncology. 05/15: Patient evaluated this morning, resting in bed comfortably. She denies any shortness of breath of chest pain. She echocardiogram yesterday that showed moderate concentric left ventricular hypertrophy, normal left ventricular systolic function with an EF between 60-65%, mild aortic regurgitation, moderate mitral regurgitation, moderate tricuspid regurgitation, and moderate pulmonary hypertension. Cardiology is on consult for elevated troponin, believes elevated troponins are not related to acute coronary syndrome. She continues on Levaquin for pneumonia. Glucose is noted to be slightly elevated, she started on 5 units NovoLog with meals plus sliding scale and hold for blood sugar less than 100. 05/16: Patient noted to be resting in bed comfortably, she is in no acute distress. CT of the chest showed bilateral pleural effusions, ultrasound of the chest was ordered, showed moderate left pleural effusion. Pulmonary on consult. Interventional radiology consulted for left-sided thoracentesis. She continues on Levaquin for pneumonia, Blood cultures show no growth to date. Patient was noted to have a hypoglycemic event, glucose 145. Patient is given half amp of dextrose IV fluids were changed to D5. Levemir was decreased to 45 units. Acute coronary event has been ruled out by cardiology. Patient noted to be hypothermic with a rectal temp of 95.3, warming blankets placed on patient. 05/17: Patient evaluated this morning, resting in bed comfortably, she is in no acute distress. Plans on interventional radiology for left-sided thoracentesis canceled due to high risk and concern for pneumothorax during procedure. Patient continues to be short of breath, still on high flow oxygen at 15 L, she is currently saturating 95%. Blood cultures show no growth to date. Pulmonary and oncology continue to follow. She continues on Solu-Medrol 40 mg every 8 hours along with updraft treatments. 05/18: Patient remain in quite but shortness of breath, consult infectious disease to see patient and evaluate her pneumonia, white blood cell slightly bit better patient likely for chemotherapy watch his the [facility] [address], [facility] to still at least 5-15 L. 05/19: Patient antibiotic was changed after seen infectious disease was started on Azactam 2 gram every 8 hours she seems to do slightly better with it, oxygenation is much better than before, no need for thoracentesis at this point, lab has improved patient still seen oncology note chemotherapies done at this point. 05/20: Patient is clinically doing much better continue to have slight shortness of breath with exertion, white blood cell has climb up quite. Combination of infection, steroid and probably Neupogen, continue to see oncology and ID no new infection at this point. 05/21: Patient evaluated this morning, resting in bed, she is having a little bit more shortness of breath today. Her oxygen saturation was noted to drop to 75% on high flow 15 L patient was then switched to a nonrebreather, she is currently 93%, she is tachypneic. Repeat chest x-ray shows persistent patchy densities in both lungs, some blunting at the costophrenic angle on the right, correlate for pneumonia also mediastinal adenopathy and pleural effusion. White cell continues to increase, 93.9 today, hemoglobin unchanged from yesterday at 7.8. Patient has complaints of frequent diarrhea, C. diff was negative repeat Covid test was negative as well. Patient continues on Aztreonam and vancomycin. Infectious disease, pulmonary and oncology on consult. 05/22: Patient sitting up in bed, noted to have active nose bleed from right nostril. Repeat labs obtained, WBC still elelvated at 93.6, Hgb 7.7, platelet count 647. Nasal packing applied per nursing staff. Will hold Eliquis today. Patient complaining of increased shortness of breath and breathing more labored today. She is requiring high flow oxygen and is saturating upper 80s to low 90s. She continues on Aztreonam, Vancomycin and Solumedrol 40mg Q8 hours along with updrafts. Pulmonary and oncology are following. Objective - Vital Signs Vital signs: Vital Signs Temp 98 F 05/22/20 08:00 Pulse 98 05/22/20 08:00 Resp 18 05/22/20 08:00 BP 118/71 05/22/20 08:00 Pulse Ox 91 L 05/22/20 08:18 Intake & Output 05/21/20 05/22/20 05/22/20 18:59 06:59 18:59 Intake Total 1052 580 Output Total 1120 Balance 1052 -540 Weight 78 kg Intake: IV 240 240 .9 @ 20 240 240 Intake, IV Titration 350 100 Amount Aztreonam 2 gm In Sodium 100 100 Chloride 0.9% 100 ml @ 33 .3 mls/hr IVPB Q8H [facility] Rx #:[id number] Vancomycin 1,500 mg In 250 Sodium Chloride 0.9% 250 ml @ 125 mls/hr IVPB Q18H [facility] Rx#:[id number] Oral 462 240 Output: Urine 1120 Other: Voiding Method Bedpan Indwelling Catheter Indwelling Catheter # Voids 1 1 # Bowel Movements 1 1 - Exam General Appearance: Alert, cooperative, no distress Neck HEENT: Supple, no lymphadenopathy, no thyroid enlargement, no carotid bruits. Lungs: Decreased breath some bilateral fine rhonchi positive Chest Wall: Decrease expansion with deep inspiration no tenderness and no deformity was found on exam, no costochondral pain or discomfort. Heart: Regular rate and rhythm, S1, S2 normal, positive systolic murmur. Back: Symmetric, no curvature, ROM normal, no CVA tenderness. Abdomen: Soft, non-tender, bowel sounds active all four quadrants, no masses, no organomegaly. Extremities: 1+ edema and decreased pulses bilaterally with slight arthritis of both knees and hips. Pulses: 2+ and symmetric. Skin: Skin color, texture, tugor normal, no rashes or lesions. Neurologic: Alert oriented x3 cranial nerves II through XII intact, no motor deficit, generalized weakness - Constitutional General appearance: Present: cooperative, mild distress - EENT EENT Comment(s): nose bleed from right nostril Eyes: Present: EOMI, PERRLA, normal appearance ENT: Present: hearing grossly normal, normal oropharynx. Absent: pharyngeal erythema, thrush - Neck Neck: Present: normal ROM. Absent: lymphadenopathy, rigidity, thyromegaly - Respiratory Respiratory: bilateral: diminished, rhonchi, wheezing - Cardiovascular Rhythm: regular Heart sounds: normal: S1, S2 - Gastrointestinal General gastrointestinal: Present: normal bowel sounds, soft. Absent: disten ded, hepatomegaly, organomegaly, splenomegaly, tenderness - Neurologic Neurologic: Present: CNII-XII intact. Absent: focal deficits - Musculoskeletal Musculoskeletal: Present: generalized weakness, strength equal bilaterally. Absent: right sided weakness, left sided weakness - Psychiatric Psychiatric: Present: A&O x's 3, appropriate affect - Labs CBC & Chem 7: 05/22/20 08:14 05/22/20 08:14 Labs: Abnormal Lab Results - Last 24 Hours (Table) 05/21/20 05/21/20 05/21/20 Range/Units 07:14 11:56 16:32 WBC (3.8-10.6) k/uL RBC (3.80-5.40) m/uL Hgb (11.4-16.0) gm/dL Hct (34.0-46.0) % MCV (80.0-100.0) fL RDW (11.5-15.5) % Plt Count (150-450) k/uL Macrocytosis Chloride (98-107) mmol/L BUN (7-17) mg/dL Creatinine (0.52-1.04) mg/dL Glucose (74-99) mg/dL POC Glucose (mg/dL) 189 H 227 H (75-99) mg/dL Total Bilirubin (0.2-1.3) mg/dL AST (14-36) U/L ALT (4-34) U/L Alkaline Phosphatase (38-126) U/L Total Protein (6.3-8.2) g/dL Albumin (3.5-5.0) g/dL Vitamin B12 >4000.0 H (211-911) pg/mL 05/21/20 05/22/20 05/22/20 Range/Units 20:17 07:06 08:14 WBC 93.6 H* (3.8-10.6) k/uL RBC 2.35 L (3.80-5.40) m/uL Hgb 7.7 L (11.4-16.0) gm/dL Hct 24.5 L (34.0-46.0) % MCV 104.1 H (80.0-100.0) fL RDW 22.1 H (11.5-15.5) % Plt Count 647 H (150-450) k/uL Macrocytosis Marked A Chloride (98-107) mmol/L BUN (7-17) mg/dL Creatinine (0.52-1.04) mg/dL Glucose (74-99) mg/dL POC Glucose (mg/dL) 240 H 143 H (75-99) mg/dL Total Bilirubin (0.2-1.3) mg/dL AST (14-36) U/L ALT (4-34) U/L Alkaline Phosphatase (38-126) U/L Total Protein (6.3-8.2) g/dL Albumin (3.5-5.0) g/dL Vitamin B12 (211-911) pg/mL 05/22/20 Range/Units 08:14 WBC (3.8-10.6) k/uL RBC (3.80-5.40) m/uL Hgb (11.4-16.0) gm/dL Hct (34.0-46.0) % MCV (80.0-100.0) fL RDW (11.5-15.5) % Plt Count (150-450) k/uL Macrocytosis Chloride 109 H (98-107) mmol/L BUN 75 H (7-17) mg/dL Creatinine 1.09 H (0.52-1.04) mg/dL Glucose 157 H (74-99) mg/dL POC Glucose (mg/dL) (75-99) mg/dL Total Bilirubin 1.5 H (0.2-1.3) mg/dL AST 44 H (14-36) U/L ALT 52 H (4-34) U/L Alkaline Phosphatase 412 H (38-126) U/L Total Protein 5.5 L (6.3-8.2) g/dL Albumin 3.2 L (3.5-5.0) g/dL Vitamin B12 (211-911) pg/mL Assessment and Plan Plan: 1 right-sided pneumonia: Most likely gram-negative specially with recent history of neutropenia post chemotherapy, antibiotics with Azactam 2 g IV every 8 hours, along with vancomycin 2 right-sided pleural effusion: After large pleural effusion with 90 to removed recently patient is doing well at this point need to be watch over time. No pleural effusion can be drained at this point. 3 non-ST OK: With elevated troponin, no sign of OK or cardiac this point this was ruled out. 4 severe generalized weakness most likely constitutional symptom secondary to chemotherapy along with her cancer and management overall continue supportive care physical therapy and occupational therapy. 5 chronic history of A. fib with RVR: Pulse rates under control currently patient will remain on atenolol 25 mg daily. Still on Eliquis 5 mg twice a day as well. 6 history of breast cancer been treated with chemotherapy with reaction on side effect of chemotherapy. 7 type 2 diabetes on insulin: Continue patient on Levemir along with Accu-Chek sliding scales coverage still on metformin as well. 8 history of COPD: Remain on Symbicort along with DuoNeb and multiple a cast and supportive O2. 9 severe leukocytosis: Combination of her infection along with steroid and Neupogen. 10 GI prophylaxis: Patient to continue on pantoprazole 40 mg daily. 11 diastolic congestive heart failure: Remain on Lasix and lisinopril. 12 hypertension: Was well controlled on atenolol, Norvasc 10 mg daily, Zestril 20 mg daily. 13. Diarrhea. C. diff was negative, continue Imodium 14. Epistaxis: most likely side effect from Eliquis, will hold for now DVT prophylaxis: Eliquis on hold due to bleed GI prophylaxis: On Pepcid. CODE STATUS: Full code. The above impression and plan of care have been discussed and directed by signing physician. Luzma Ivey nurse practitioner acting as scribe for signing physician.
[2020-05-22 12:00] LABS: Glucose,Whole Blood 283 mg/dL (75-99)
[2020-05-22] MEDS ORDERED: RX INFO: IV CONTRAST WAS GIVEN 1 EACH MISC MISCELLANE PRN (13:56)
--- NOTE | 2020-05-22 14:15 | P.PN ---
Subjective Progress Note Date: 05/22/20 Principal diagnosis: Acute on chronic diastolic heart failure Right-sided pneumonia Bilateral mild to moderate pleural effusion on the left more than the right side Elevated troponin Generalized weakness History of A. fib with RVR History of breast cancer and chemotherapy 05/22/2020, patient seen eval examined during the rounds, patient started having bleeding and epistaxis, has been placed on aerosolized oxygen, oxygenation remains marginal, patient white cell count continue to go up anemic, platelet count is still going up hematology has been reconsulted, BUN also going up likely prerenal azotemia, oxygen saturation 90% on high flow 45 L 90% 05/17/2020, patient seen and evaluated examined during the rounds he remains very hypoxic on 15 L high flow oxygen, oxygen saturation remains marginal get short of breath on minimal activity and exertion, interventional radiology eval and evaluated the patient recent ultrasound now in the radiology found to have just 3 cm of fluid with a high risk of pneumothorax, Procedure Was Canceled, Would Recommend to Consult ID Service for Broader Spectrum Antibiotics Currently Patient Is Just on by Mouth Levaquin, Given Limited Choices Due To Penicillin ALLERGY, Continue IV Steroids This is a 64-year-old female who was seen eval, patient [facility] she was presented with progressive weakness found to have elevated troponin, patient was advised to be transferred to [facility], patient has a prior significant history of A. fib with RVR and congestive heart failure likely diastolic failure was admitted at [facility] about 3 weeks ago, during evaluation she was found to have elevated BNP of over 2000, patient appears to have a diastolic heart failure ejection fraction however 65%, computed tomography scan of the chest shows bilateral pleural effusion small to moderate, right-sided effusion is a small left-sided is about 6-7 cm in size, ultrasound of the chest has been reviewed IR has been consulted for thoracentesis, patient has been hypothermic with warming blanket are being ordered as well, she is still on supplemental oxygen with 15 L saturation is 91%,, blood cultures have been negative, Objective - Vital Signs Vital signs: Vital Signs Temp 97.6 F 05/22/20 11:47 Pulse 92 05/22/20 11:47 Resp 18 05/22/20 11:47 BP 119/74 05/22/20 11:47 Pulse Ox 92 L 05/22/20 11:47 Intake & Output 05/21/20 05/22/20 05/22/20 18:59 06:59 18:59 Intake Total 1052 580 480 Output Total 1120 500 Balance 1052 -540 -20 Weight 78 kg Intake: IV 240 240 .9 @ 20 240 240 Intake, IV Titration 350 100 Amount Aztreonam 2 gm In Sodium 100 100 Chloride 0.9% 100 ml @ 33 .3 mls/hr IVPB Q8H [facility] Rx #:[id number] Vancomycin 1,500 mg In 250 Sodium Chloride 0.9% 250 ml @ 125 mls/hr IVPB Q18H [facility] Rx#:[id number] Oral 462 240 480 Output: Urine 1120 500 Other: Voiding Method Bedpan Indwelling Catheter Indwelling Catheter # Voids 1 1 # Bowel Movements 1 1 - Exam - Constitutional General appearance: average body habitus - EENT Eyes: PERRLA Ears: bilateral: normal - Neck Carotids: bilateral: upstroke normal Thyroid: bilateral: normal size - Respiratory Respiratory: bilateral: Coarse breath sounds - Cardiovascular Rhythm: regular Heart sounds: normal: S1, S2 - Gastrointestinal General gastrointestinal: normal bowel sounds - Neurologic Neurologic: CNII-XII intact - Musculoskeletal Musculoskeletal: gait normal, generalized weakness - Psychiatric Psychiatric: Arousable but tired - Labs CBC & Chem 7: 05/22/20 08:14 05/22/20 08:14 Labs: Abnormal Lab Results - Last 24 Hours (Table) 05/21/20 05/21/20 05/21/20 Range/Units 07:14 16:32 20:17 WBC (3.8-10.6) k/uL RBC (3.80-5.40) m/uL Hgb (11.4-16.0) gm/dL Hct (34.0-46.0) % MCV (80.0-100.0) fL RDW (11.5-15.5) % Plt Count (150-450) k/uL Macrocytosis Chloride (98-107) mmol/L BUN (7-17) mg/dL Creatinine (0.52-1.04) mg/dL Glucose (74-99) mg/dL POC Glucose (mg/dL) 227 H 240 H (75-99) mg/dL Total Bilirubin (0.2-1.3) mg/dL AST (14-36) U/L ALT (4-34) U/L Alkaline Phosphatase (38-126) U/L Total Protein (6.3-8.2) g/dL Albumin (3.5-5.0) g/dL Vitamin B12 >4000.0 H (211-911) pg/mL 05/22/20 05/22/20 05/22/20 Range/Units 07:06 08:14 08:14 WBC 93.6 H* (3.8-10.6) k/uL RBC 2.35 L (3.80-5.40) m/uL Hgb 7.7 L (11.4-16.0) gm/dL Hct 24.5 L (34.0-46.0) % MCV 104.1 H (80.0-100.0) fL RDW 22.1 H (11.5-15.5) % Plt Count 647 H (150-450) k/uL Macrocytosis Marked A Chloride 109 H (98-107) mmol/L BUN 75 H (7-17) mg/dL Creatinine 1.09 H (0.52-1.04) mg/dL Glucose 157 H (74-99) mg/dL POC Glucose (mg/dL) 143 H (75-99) mg/dL Total Bilirubin 1.5 H (0.2-1.3) mg/dL AST 44 H (14-36) U/L ALT 52 H (4-34) U/L Alkaline Phosphatase 412 H (38-126) U/L Total Protein 5.5 L (6.3-8.2) g/dL Albumin 3.2 L (3.5-5.0) g/dL Vitamin B12 (211-911) pg/mL 05/22/20 Range/Units 11:57 WBC (3.8-10.6) k/uL RBC (3.80-5.40) m/uL Hgb (11.4-16.0) gm/dL Hct (34.0-46.0) % MCV (80.0-100.0) fL RDW (11.5-15.5) % Plt Count (150-450) k/uL Macrocytosis Chloride (98-107) mmol/L BUN (7-17) mg/dL Creatinine (0.52-1.04) mg/dL Glucose (74-99) mg/dL POC Glucose (mg/dL) 283 H (75-99) mg/dL Total Bilirubin (0.2-1.3) mg/dL AST (14-36) U/L ALT (4-34) U/L Alkaline Phosphatase (38-126) U/L Total Protein (6.3-8.2) g/dL Albumin (3.5-5.0) g/dL Vitamin B12 (211-911) pg/mL Assessment and Plan Assessment: Acute hypoxic respiratory failure Acute on chronic diastolic heart failure Leukocytosis/leukemoid reaction Prerenal azotemia Right-sided pneumonia Bilateral mild to moderate pleural effusion on the left more than the right side Elevated troponin Generalized weakness History of A. fib with RVR History of breast cancer and chemotherapy Plan: High flow oxygen as tolerated Agree holding direct oral anticoagulants IV steroids broader spectrum antibiotics Limited amount of pleural fluid thoracentesis cannot be performed with high risk of pneumothorax Continue iv steroids Continue gentle diuresis Prognosis is very guarded Time with Patient: Greater than 30
[2020-05-22 17:03] LABS: Glucose,Whole Blood 361 mg/dL (75-99)
--- NOTE | 2020-05-22 18:39 | CT ---
EXAMINATION TYPE: CT chest w con DATE OF EXAM: 05/22/2020 COMPARISON: 05/15/2020 HISTORY: Shortness of breath. CT DLP: 456.5 mGycm, Automated exposure control for dose reduction was used. CONTRAST: Performed injected with 80 mL of Isovue 300. TECHNIQUE: Axial images were obtained at 5 mm thick sections. Reconstructed images are reviewed on [employer] computer in the coronal plane. FINDINGS: Portion of the thyroid visualized is normal. Small bilateral pleural effusions are present. There are scattered infiltrates and groundglass opacit ies. A triangular filtrate is along the major fissure at the left base. Findings are nonspecific. Dif ferential diagnosis should include atypical pneumonia. Atelectasis and pulmonary edema could be consi dered. No enlarged mediastinal or hilar adenopathy is evident. The ascending aorta diameter at the level o f the main pulmonary artery is 3.0 cm. The main pulmonary artery diameter at the bifurcation is 2.[address] sections are obtained through the upper abdomen. Abdomen is essentially unremarkable. Some increased densities within the right lateral flank of the abdomen could be a contusion. Correlat e with history. Example series 201 image 69 IMPRESSIONS: 1. Scattered bilateral infiltrates and consolidations. Correlate for atypical pneumonia.
[2020-05-22 19:21] LABS: ABG Base Excess -6.6 mmol/L; ABG HCO3 19 mmol/L (21-25); ABG Oxygen Saturation 89.1 % (94-97); ABG PCO2 33 mmHg (35-45); ABG PH 7.36 (7.35-7.45); ABG TCO2 20 mmol/L (19-24); Allen Test Performed? Yes
[2020-05-22 19:26] LABS: ABG PO2 59 mmHg (83-108)
[2020-05-22 20:12] LABS: Glucose,Whole Blood 301 mg/dL (75-99)
[2020-05-22] MEDS: ATORVASTATIN 10 MG TAB PO SCH (20:31)
[2020-05-22] MEDS: ALPRAZolam 0.5 MG TAB PO PRN (21:36)
[2020-05-22] MEDS: LEVOFLOXACIN 250 MG TAB PO SCH (21:37)
[2020-05-22] MEDS: OLANZapine 5 MG TAB PO SCH (21:37)
--- NOTE | 2020-05-22 21:59 | PN ---
PROGRESS NOTE DATE OF SERVICE: 05/22/2020 REASON FOR FOLLOWUP: Pneumonia. INTERVAL HISTORY: The patient is currently afebrile. The patient is requiring . The patient denies having any chest pain. Did have a cough; no sputum. No abdominal pain or diarrhea. PHYSICAL EXAMINATION: Blood pressure 115/67, pulse 89, temperature 97.5. She is 93% on BiPAP. General description is an elderly female lying in bed in no distress. RESPIRATORY SYSTEM: Unlabored breathing with decreased intensity of breath sounds. No wheeze. HEART: S1, S2. Regular rate and rhythm. ABDOMEN: Soft. No tenderness. LABS: Hemoglobin 7.7, white count 93.6, BUN of 75, creatinine 1.09. DIAGNOSTIC IMPRESSION AND PLAN: Patient with acute respiratory failure which is multifactorial with concern for possible atypical pneumonia on the basis of the CT. The patient did have COVID testing that has been negative and has been on broad-spectrum antibiotics as well with very minimal clinical response. To continue current treatment protocol and monitor clinical course closely. MMODL / IJN: [id number] /
[2020-05-23] MEDS: VANCOMYCIN 1,500 MG in SODIUM CHLORIDE 0.9% 250 ML IVPB SCH ×2 (02:33→21:02)
[2020-05-23] MEDS: PANTOPRAZOLE 40 MG TABLET PO SCH (06:20)
[2020-05-23] MEDS: AZTREONAM 2 GM in SODIUM CHLORIDE 0.9% 100 ML IVPB SCH ×2 (06:20→17:35)
[2020-05-23 06:52] LABS: Glucose,Whole Blood 170 mg/dL (75-99)
[2020-05-23] MEDS: INSULIN ASPART (NovoLOG) 100 UNIT/ML VIAL SQ SCH ×7 (07:05→21:02)
[2020-05-23 07:46] LABS: Anisocytosis Moderate; HCT 24.8 % (34.0-46.0); HGB 7.8 gm/dL (11.4-16.0); Hypochromasia Moderate; MCH 32.9 pg (25.0-35.0); MCHC 31.3 g/dL (31.0-37.0); MCV 105.1 fL (80.0-100.0); Macrocytosis Marked; Mean Platelet Volume 8.2; Platelet Count 681 k/uL (150-450); Poikilocytosis Slight; RBC 2.36 m/uL (3.80-5.40); RDW 22.7 % (11.5-15.5)
[2020-05-23 07:55] LABS: Calcium 9.1 mg/dL (8.4-10.2); Potassium 4.1 mmol/L (3.5-5.1)
--- NOTE | 2020-05-23 07:58 | XR ---
EXAMINATION TYPE: XR chest 1V portable DATE OF EXAM: 05/23/2020 COMPARISON: 05/21/2020 INDICATION: Pneumonia TECHNIQUE: Single frontal view of the chest is obtained. FINDINGS: The heart size is normal. The pulmonary vasculature is normal. Patchy infiltrates are present bilaterally greater on the right. These are increasing over the interv al. Port is present on the left the tip in the superior vena cava region. IMPRESSION: 1. Worsening patchy bilateral lung infiltrates. Continued follow-up is recommended
[2020-05-23 08:41] LABS: Band Neutrophils % 3 %; Metamyelocytes % 2 %; Myelocytes % 2 %; Neutrophils % (M) 90 %; Nucleated Red Blood Cells 4 /100 WBC (0-0); Total Cells Counted 200
[2020-05-23 08:43] LABS: Lymphocytes # (M) 0.76 k/uL (1.0-4.8); Metamyelocytes # (M) 1.52 k/uL (0); Monocytes # (M) 2.28 k/uL (0-1.0); Myelocytes # (M) 1.52 k/uL (0); WBC 76.1 k/uL (3.8-10.6)
[2020-05-23 08:44] LABS: Polychromasia Present
[2020-05-23 08:45] LABS: Toxic Granulation Present; Toxic Vacuolation Present
[2020-05-23] MEDS: ALBUTEROL HFA INHALER INHALATION PRN (09:03)
[2020-05-23] MEDS: SYMBICORT 160-4.5 MCG INHALER INHALATION SCH ×2 (09:03→20:57)
[2020-05-23] MEDS: FUROSEMIDE 10 MG/ML 4 ML VIAL IV SCH (09:40)
[2020-05-23] MEDS: methylPREDNISolone SOD SUCCI 40 MG/ML 1 ML VIAL IV SCH ×2 (09:41→18:18)
--- NOTE | 2020-05-23 11:49 | P.DS ---
Providers Date of admission: 05/15/20 08:19 Expected date of discharge: 05/23/20 Attending physician: Thomas Roberson Consults: 05/14/20 08:40 Consult Physician Routine Consulting Provider: Gabe Leung Consult Reason/Comments: breast cancer, chemotherapy Do you want consulting provider notified?: Yes 05/16/20 10:34 Consult Physician Routine Consulting Provider: Maico Mccartney Consult Reason/Comments: O2 at 13L, pneumonia Do you want consulting provider notified?: Already Contacted 05/17/20 10:32 Consult Physician Routine Consulting Provider: Tello Munson Consult Reason/Comments: elevated WBC, pna Do you want consulting provider notified?: Yes Primary care physician: [facility] Course: Right-sided pneumonia, pleural effusion, history of breast cancer with metasta sis, COPD, anemia, elevated troponin 64-year-old female one of Dr. Aldridge patient with past medical history of breast cancer, hypertension, hyperlipidemia and COPD who apparently was hospitalized at [facility] 3 weeks ago for pneumonia CHF and A. fib and has done well has been seen oncology on regular basis apparently she was diagnosed with worsening dyspnea and shortness of breath found to have significant lymph nodes in the mediastinal area with left breast mass measured 1.7, 1.4 cm biopsy of the breasts and axilla on 02/17/2020 was consistent with invasive ductal carcinoma ER/DE negative, HER-2 1+, no evidence of metastasis disease lung infiltrate and pleural effusion had resolved a Chin was started on new adjuvant dose dense of chemotherapy in April 09 she had a prolonged hospitalization no April 11 till April 24 for CHF exacerbation and she had a pleural effusion suspected pneumonia 6 L of thoracentesis of the right side was taking she had also severe leukopenia and was in ICU for long time with WBC/ANC recover about 9 days after G-CSF injection was started. 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 Patient presented to [facility] emergency department complaining of severe weakness and fatigue patient profound weakness fall on the floor was in able to move her arms and legs her went to lift her out of bed to go to the bathroom and that she is basically just felt to the floor she denies any fever, nausea headache dizziness no vomiting positive mild dyspnea and shortness of breath no chest pain positive mild abdominal pain with no dysuria diarrhea constipation swelling of the legs she has generalized weakness no focal deficit. At the presentation to [place] [place] emergency department found to have elevated troponin with proBNP was 2000 with concern of pneumonia she was giving Levaquin and vancomycin and transfer to [facility] to be under cardiology and oncology. 05/15: Patient evaluated this morning, resting in bed comfortably. She denies any shortness of breath of chest pain. She echocardiogram yesterday that showed moderate concentric left ventricular hypertrophy, normal left ventricular systolic function with an EF between 60-65%, mild aortic regurgitation, moderate mitral regurgitation, moderate tricuspid regurgitation, and moderate pulmonary hypertension. Cardiology is on consult for elevated troponin, believes elevated troponins are not related to acute coronary syndrome. She continues on Levaquin for pneumonia. Glucose is noted to be slightly elevated, she started on 5 units NovoLog with meals plus sliding scale and hold for blood sugar less than 100. 05/16: Patient noted to be resting in bed comfortably, she is in no acute distress. CT of the chest showed bilateral pleural effusions, ultrasound of the chest was ordered, showed moderate left pleural effusion. Pulmonary on consult. Interventional radiology consulted for left-sided thoracentesis. She continues on Levaquin for pneumonia, Blood cultures show no growth to date. Patient was noted to have a hypoglycemic event, glucose 145. Patient is given half amp of dextrose IV fluids were changed to D5. Levemir was decreased to 45 units. Acute coronary event has been ruled out by cardiology. Patient noted to be hypothermic with a rectal temp of 95.3, warming blankets placed on patient. 05/17: Patient evaluated this morning, resting in bed comfortably, she is in no acute distress. Plans on interventional radiology for left-sided thoracentesis canceled due to high risk and concern for pneumothorax during procedure. Patient continues to be short of breath, still on high flow oxygen at 15 L, she is currently saturating 95%. Blood cultures show no growth to date. Pulmonary and oncology continue to follow. She continues on Solu-Medrol 40 mg every 8 hours along with updraft treatments. 05/18: Patient remain in quite but shortness of breath, consult infectious disease to see patient and evaluate her pneumonia, white blood cell slightly bit better patient likely for chemotherapy watch his [facility] to still at least 5-15 L. 05/19: Patient antibiotic was changed after seen infectious disease was started on Azactam 2 gram every 8 hours she seems to do slightly better with it, oxygenation is much better than before, no need for thoracentesis at this point, lab has improved patient still seen oncology note chemotherapies done at this point. 05/20: Patient is clinically doing much better continue to have slight shortness of breath with exertion, white blood cell has climb up quite. Combination of infection, steroid and probably Neupogen, continue to see oncology and ID no new infection at this point. 05/21: Patient evaluated this morning, resting in bed, she is having a little bit more shortness of breath today. Her oxygen saturation was noted to drop to 75% on high flow 15 L patient was then switched to a nonrebreather, she is currently 93%, she is tachypneic. Repeat chest x-ray shows persistent patchy densities in both lungs, some blunting at the costophrenic angle on the right, correlate for pneumonia also mediastinal adenopathy and pleural effusion. White cell continues to increase, 93.9 today, hemoglobin unchanged from yesterday at 7.8. Patient has complaints of frequent diarrhea, C. diff was negative repeat Covid test was negative as well. Patient continues on Aztreonam and vancomycin. Infectious disease, pulmonary and oncology on consult. 05/22: Patient sitting up in bed, noted to have active nose bleed from right nostril. Repeat labs obtained, WBC still elelvated at 93.6, Hgb 7.7, platelet count 647. Nasal packing applied per nursing staff. Will hold Eliquis today. Patient complaining of increased shortness of breath and breathing more labored today. She is requiring high flow oxygen and is saturating upper 80s to low 90s. She continues on Aztreonam, Vancomycin and Solumedrol 40mg Q8 hours along with updrafts. Pulmonary and oncology are following. 05/23: Patient evaluated this morning, noted to be more short of breath and hypoxic. This a patient was placed on high flow yesterday and still was in the low 80s, she was then placed on BiPAP with a FiO2 of 90, her oxygen saturation is currently 92% and remains in the low 90%, patient still continues to be tachypneic. Overall clinically continues to decline daily despite antibiotic treatment with Aztreoman, vancomycin and Solu-Medrol 40 mg every 8 hours. Had discussion with patient about treatment options, she will like be transferred to [facility] for more aggressive treatment with possible bronchoscopy with lung biopsy to rule out the possibility of lung metastasis and better management for her respiratory failure secondary to BOOP. Will make arrangements for transfer. Discharge diagnoses 1. 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 5 severe generalized weakness most likely constitutional symptom secondary to chemotherapy along with her cancer and management overall continue supportive care physical therapy and occupational therapy. 6 chronic history of A. fib with RVR 7 history of breast cancer been treated with chemotherapy 8 type 2 diabetes on insulin 9 history of COPD 10 severe leukocytosis: Combination of her infection along with steroid and Neupogen. 11 diastolic congestive heart failure 12 hypertension 13. Diarrhea. C. diff was negative 14. Epistaxis: most likely side effect from Eliquis CODE STATUS: Full code. The above impression and plan of care have been discussed and directed by signing physician. Luzma Ivey nurse practitioner acting as scribe for signing physician. Patient Condition at Discharge: Critical Plan - Discharge Summary Discharge Rx Participant: Yes New Discharge Prescriptions: No Action Simvastatin [Zocor] 20 mg PO HS atenoloL [Tenormin] 25 mg PO DAILY amLODIPine BESYLATE [Norvasc] 10 mg PO DAILY Insulin Detemir [Levemir Flextouch] 45 units SQ BID Dapagliflozin Propanediol [Farxiga] 5 mg PO DAILY metFORMIN HCL 1,000 mg PO BID Omeprazole 20 mg PO DAILY OLANZapine [ZyPREXA] 5 mg PO HS lisinopriL [Zestril] 20 mg PO DAILY Metoprolol Succinate [Toprol XL] 50 mg PO DAILY Levothyroxine Sodium [Synthroid] 175 mcg PO DAILY FLUoxetine HCL [PROzac] 40 mg PO DAILY Apixaban [Eliquis] 5 mg PO BID Bumetanide [Bumex] 1 mg PO BID ALPRAZolam [Xanax] 0.5 mg PO DAILY PRN PRN Reason: Anxiety Potassium Chloride ER [K-Dur 20] 20 meq PO BID Fluticasone Propion/Salmeterol [Wixela 500-50 Inhub] 1 puff INHALATION RT-BID Albuterol Sulfate [Proair Hfa] 2 puff INHALATION Q6HR PRN PRN Reason: Shortness Of Breath Ibuprofen 400 mg PO Q8H Furosemide [Lasix] 40 mg PO DAILY Clotrimazole/Betameth Cream [Lotrisone] 1 applic TOPICAL BID Isosorbide Mononitrate [Isosorbide Mononitrate ER] 30 mg PO DAILY Psyllium Husk 100% [Metamucil Packet] 1 packet PO TID PRN PRN Reason: Constipation FLUoxetine HCL [PROzac] 40 mg PO DAILY Montelukast [Singulair] 10 mg PO DAILY Levothyroxine Sodium [Synthroid] 175 mcg PO DAILY Cyanocobalamin (Vitamin B-12) [Vitamin B-12] 1,000 mcg PO DAILY Dulaglutide [Trulicity] 0.75 mg SQ Q7D Metoprolol Tartrate 25 mg PO DAILY Discharge Medication List Insulin Detemir [Levemir Flextouch] 45 units SQ BID 01/27/15 [History] Simvastatin [Zocor] 20 mg PO HS 01/27/15 [History] amLODIPine BESYLATE [Norvasc] 10 mg PO DAILY 01/27/15 [History] atenoloL [Tenormin] 25 mg PO DAILY 01/27/15 [History] Dapagliflozin Propanediol [Farxiga] 5 mg PO DAILY 01/29/15 [History] metFORMIN HCL 1,000 mg PO BID 10/11/15 [History] ALPRAZolam [Xanax] 0.5 mg PO DAILY PRN 05/14/20 [History] Albuterol Sulfate [Proair Hfa] 2 puff INHALATION Q6HR PRN 05/14/20 [History] Apixaban [Eliquis] 5 mg PO BID 05/14/20 [History] Bumetanide [Bumex] 1 mg PO BID 05/14/20 [History] Clotrimazole/Betameth Cream [Lotrisone] 1 applic TOPICAL BID 05/14/20 [History] Cyanocobalamin (Vitamin B-12) [Vitamin B-12] 1,000 mcg PO DAILY 05/14/20 [History] Dulaglutide [Trulicity] 0.75 mg SQ Q7D 05/14/20 [History] FLUoxetine HCL [PROzac] 40 mg PO DAILY 05/14/20 [History] FLUoxetine HCL [PROzac] 40 mg PO DAILY 05/14/20 [History] Fluticasone Propion/Salmeterol [Wixela 500-50 Inhub] 1 puff INHALATION RT-BID 05/14/20 [History] Furosemide [Lasix] 40 mg PO DAILY 05/14/20 [History] Ibuprofen 400 mg PO Q8H 05/14/20 [History] Isosorbide Mononitrate [Isosorbide Mononitrate ER] 30 mg PO DAILY 05/14/20 [History] Levothyroxine Sodium [Synthroid] 175 mcg PO DAILY 05/14/20 [History] Levothyroxine Sodium [Synthroid] 175 mcg PO DAILY 05/14/20 [History] Metoprolol Succinate [Toprol XL] 50 mg PO DAILY 05/14/20 [History] Metoprolol Tartrate 25 mg PO DAILY 05/14/20 [History] Montelukast [Singulair] 10 mg PO DAILY 05/14/20 [History] OLANZapine [ZyPREXA] 5 mg PO HS 05/14/20 [History] Omeprazole 20 mg PO DAILY 05/14/20 [History] Potassium Chloride ER [K-Dur 20] 20 meq PO BID 05/14/20 [History] Psyllium Husk 100% [Metamucil Packet] 1 packet PO TID PRN 05/14/20 [History] lisinopriL [Zestril] 20 mg PO DAILY 05/14/20 [History] Follow up Appointment(s)/Referral(s): Gris Ellis NPC [Nurse Practitioner] - 05/23/20 10:00 am Anil Aldridge MD [Primary Care Provider] - 1-2 days Discharge Disposition: OTHER INSTITUTION NOT DEFINED
[2020-05-23 12:03] LABS: Glucose,Whole Blood 284 mg/dL (75-99)
--- NOTE | 2020-05-23 15:28 | P.PN ---
Subjective Progress Note Date: 05/23/20 Principal diagnosis: Acute on chronic diastolic heart failure Right-sided pneumonia Bilateral mild to moderate pleural effusion on the left more than the right side Elevated troponin Generalized weakness History of A. fib with RVR History of breast cancer and chemotherapy 05/23/2020, patient seen eval examined during the rounds labs reviewed medications reviewed currently patient is on BiPAP, arousable but however short of breath, x-ray performed today showed worsening infiltrate, patient remains on Vanco aztreonam and Solu-Medrol, patient is being transferred to [facility] 05/22/2020, patient seen eval examined during the rounds, patient started having bleeding and epistaxis, has been placed on aerosolized oxygen, oxygenation remains marginal, patient white cell count continue to go up anemic, platelet count is still going up hematology has been reconsulted, BUN also going up likely prerenal azotemia, oxygen saturation 90% on high flow 45 L 90% 05/17/2020, patient seen and evaluated examined during the rounds he remains very hypoxic on 15 L high flow oxygen, oxygen saturation remains marginal get short of breath on minimal activity and exertion, interventional radiology eval and evaluated the patient recent ultrasound now in the radiology found to have just 3 cm of fluid with a high risk of pneumothorax, Procedure Was Canceled, Would Recommend to Consult ID Service for Broader Spectrum Antibiotics Currently Patient Is Just on by Mouth Levaquin, Given Limited Choices Due To Penicillin ALLERGY, Continue IV Steroids This is a 64-year-old female who was seen eval, patient admitted with a transfer from a neck in the hospital where she was presented with progressive weakness found to have elevated troponin, patient was advised to be transferred to [facility], patient has a prior significant history of A. fib with RVR and congestive heart failure likely diastolic failure was admitted at [facility] about 3 weeks ago, during evaluation she was found to have elevated BNP of over 2000, patient appears to have a diastolic heart failure ejection fraction however 65%, computed tomography scan of the chest shows b ilateral pleural effusion small to moderate, right-sided effusion is a small left-sided is about 6-7 cm in size, ultrasound of the chest has been reviewed IR has been consulted for thoracentesis, patient has been hypothermic with warming blanket are being ordered as well, she is still on supplemental oxygen with 15 L saturation is 91%,, blood cultures have been negative, Objective - Vital Signs Vital signs: Vital Signs Temp 97.9 F 05/23/20 08:00 Pulse 90 05/23/20 08:00 Resp 26 H 05/23/20 08:00 BP 126/65 05/23/20 08:00 Pulse Ox 93 L 05/23/20 08:00 Intake & Output 05/22/20 05/23/20 05/23/20 18:59 06:59 18:59 Intake Total 480 780 Output Total 800 1660 800 Balance -320 Weight 79.5 kg Intake: Oral 480 780 Output: Urine 800 1660 800 Other: Voiding Method Indwelling Catheter Indwelling Catheter Indwelling Catheter # Bowel Movements 1 - Exam - Constitutional General appearance: average body habitus - EENT Eyes: PERRLA Ears: bilateral: normal - Neck Carotids: bilateral: upstroke normal Thyroid: bilateral: normal size - Respiratory Respiratory: bilateral: Coarse breath sounds - Cardiovascular Rhythm: regular Heart sounds: normal: S1, S2 - Gastrointestinal General gastrointestinal: normal bowel sounds - Neurologic Neurologic: CNII-XII intact - Musculoskeletal Musculoskeletal: gait normal, generalized weakness - Psychiatric Psychiatric: Arousable but tired BiPAP dependent for significant hypoxia - Labs CBC & Chem 7: 05/23/20 07:01 05/23/20 07:01 Labs: Abnormal Lab Results - Last 24 Hours (Table) 05/22/20 05/22/20 05/22/20 Range/Units 16:57 19:18 20:11 WBC (3.8-10.6) k/uL RBC (3.80-5.40) m/uL Hgb (11.4-16.0) gm/dL Hct (34.0-46.0) % MCV (80.0-100.0) fL RDW (11.5-15.5) % Plt Count (150-450) k/uL Neutrophils # (Manual) (1.3-7.7) k/uL Lymphocytes # (Manual) (1.0-4.8) k/uL Monocytes # (Manual) (0-1.0) k/uL Metamyelocytes # (Man) (0) k/uL Myelocytes # (Manual) (0) k/uL Nucleated RBCs (0-0) /100 WBC Macrocytosis ABG pCO2 33 L (35-45) mmHg ABG pO2 59 L* (83-108) mmHg ABG HCO3 19 L (21-25) mmol/L ABG O2 Saturation 89.1 L (94-97) % Chloride (98-107) mmol/L BUN (7-17) mg/dL Glucose (74-99) mg/dL POC Glucose (mg/dL) 361 H 301 H (75-99) mg/dL 05/23/20 05/23/20 05/23/20 Range/Units 06:50 07:01 07:01 WBC 76.1 H* (3.8-10.6) k/uL RBC 2.36 L (3.80-5.40) m/uL Hgb 7.8 L (11.4-16.0) gm/dL Hct 24.8 L (34.0-46.0) % MCV 105.1 H (80.0-100.0) fL RDW 22.7 H (11.5-15.5) % Plt Count 681 H (150-450) k/uL Neutrophils # (Manual) 70.70 H (1.3-7.7) k/uL Lymphocytes # (Manual) 0.76 L (1.0-4.8) k/uL Monocytes # (Manual) 2.28 H (0-1.0) k/uL Metamyelocytes # (Man) 1.52 H (0) k/uL Myelocytes # (Manual) 1.52 H (0) k/uL Nucleated RBCs 4 H (0-0) /100 WBC Macrocytosis Marked A ABG pCO2 (35-45) mmHg ABG pO2 (83-108) mmHg ABG HCO3 (21-25) mmol/L ABG O2 Saturation (94-97) % Chloride 110 H (98-107) mmol/L BUN 69 H (7-17) mg/dL Glucose 142 H (74-99) mg/dL POC Glucose (mg/dL) 170 H (75-99) mg/dL 05/23/20 Range/Units 11:59 WBC (3.8-10.6) k/uL RBC (3.80-5.40) m/uL Hgb (11.4-16.0) gm/dL Hct (34.0-46.0) % MCV (80.0-100.0) fL RDW (11.5-15.5) % Plt Count (150-450) k/uL Neutrophils # (Manual) (1.3-7.7) k/uL Lymphocytes # (Manual) (1.0-4.8) k/uL Monocytes # (Manual) (0-1.0) k/uL Metamyelocytes # (Man) (0) k/uL Myelocytes # (Manual) (0) k/uL Nucleated RBCs (0-0) /100 WBC Macrocytosis ABG pCO2 (35-45) mmHg ABG pO2 (83-108) mmHg ABG HCO3 (21-25) mmol/L ABG O2 Saturation (94-97) % Chloride (98-107) mmol/L BUN (7-17) mg/dL Glucose (74-99) mg/dL POC Glucose (mg/dL) 284 H (75-99) mg/dL Assessment and Plan Assessment: Acute hypoxic respiratory failure Differential diagnosis of worsening pneumonia Acute on chronic diastolic heart failure Leukocytosis/leukemoid reaction Prerenal azotemia Right-sided pneumonia Bilateral mild to moderate pleural effusion on the left more than the right side Elevated troponin Generalized weakness History of A. fib with RVR History of breast cancer and chemotherapy Plan: High flow oxygen terminating with BiPAP, agree with transfer to tertiary care facility Agree holding direct oral anticoagulants IV steroids broader spectrum antibiotics Limited amount of pleural fluid thoracentesis cannot be performed with high risk of pneumothorax Continue iv steroids Continue gentle diuresis Prognosis is very guarded Time with Patient: Greater than 30
--- NOTE | 2020-05-23 15:59 | PN ---
PROGRESS NOTE DATE OF SERVICE: 05/23/2020 REASON FOR FOLLOWUP: Pneumonia. INTERVAL HISTORY: The patient is currently afebrile. The patient is hemodynamically stable. The patient is requiring BiPAP to support her since. Patient denies having any chest pain. She did have some cough. No sputum. No abdominal pain or diarrhea. PHYSICAL EXAMINATION: Blood pressure 126/65 with a pulse of 90, temperature 97.9. She is 93% on BiPAP. General description is an elderly female lying in bed in no distress. RESPIRATORY SYSTEM: Unlabored breathing, decreased intensity of breath sounds. No wheeze. HEART: S1, S2. Regular rate and rhythm. ABDOMEN: Soft, no tenderness. LABS: Hemoglobin 7.8, white count 76.1. BUN of 69, creatinine 0.88. DIAGNOSTIC IMPRESSION AND PLAN: Patient with acute respiratory failure which is multifactorial in this patient with concern for possible pneumonia .the patient did have CT of the chest completed last night with scattered bilateral infiltrate and consolidation. The patient is covered with Azactam, vancomycin, Levaquin. White count showing a downward trend. Patient possible transfer to tertiary care for further workup. MMODL / IJN: [id number] /
[2020-05-23 16:58] LABS: Glucose,Whole Blood 263 mg/dL (75-99)
[2020-05-23] MEDS: MONTELUKAST 10 MG TAB PO SCH (18:18)
[2020-05-23] MEDS: NYSTATIN 100,000 UNIT/GM POWD 15 GM TOPICAL SCH ×2 (18:18→21:12)
[2020-05-23] MEDS: POTASSIUM CHLORIDE ER 20 MEQ TAB.ER PO SCH ×2 (18:18→21:12)
[2020-05-23] MEDS: OXYMETAZOLINE 0.05% NASL SPRAY 1 SPRAY BOTTLE NASAL SCH ×2 (18:18→23:50)
[2020-05-23] MEDS: CLOTRIMAZOLE/BETAMETH 1-0.05% CREAM 45 GM TUBE TOPICAL SCH ×2 (18:19→21:12)
[2020-05-23] MEDS: NON FORMULARY DRUG (Dapagliflozin Propanediol [Farxiga] 5 MG Tablet) PO SCH (18:19)
[2020-05-23] MEDS: amLODIPine 10 MG TAB PO SCH (18:19)
[2020-05-23] MEDS: CYANOCOBALAMIN 500 MCG TAB PO SCH (18:19)
[2020-05-23] MEDS: BUMETANIDE 1 MG TAB PO SCH ×2 (18:19→21:12)
[2020-05-23] MEDS: FLUoxetine HCL 20 MG CAP PO SCH (18:20)
[2020-05-23] MEDS: lisinopriL 20 MG TAB PO SCH (18:20)
[2020-05-23] MEDS: LEVOTHYROXINE 88 MCG TAB PO SCH (18:20)
[2020-05-23] MEDS: METOPROLOL TARTRATE 25 MG TAB PO SCH ×2 (18:20→21:01)
[2020-05-23] MEDS: ISOSORBIDE MONONITRATE ER 30 MG TAB.ER.24H PO SCH (18:20)
[2020-05-23] MEDS ORDERED: VANCOMYCIN TROUGH DUE 1 EACH MISC MISCELLANE ONE (19:00)
[2020-05-23 20:11] LABS: Glucose,Whole Blood 305 mg/dL (75-99)
[2020-05-23] MEDS: ALPRAZolam 0.5 MG TAB PO PRN (21:01)
[2020-05-23] MEDS: ATORVASTATIN 10 MG TAB PO SCH (21:11)
[2020-05-23] MEDS: LEVOFLOXACIN 250 MG TAB PO SCH (21:12)
[2020-05-23] MEDS: OLANZapine 5 MG TAB PO SCH (21:12)
[2020-05-24] MEDS: AZTREONAM 2 GM in SODIUM CHLORIDE 0.9% 100 ML IVPB SCH ×2 (00:39→06:28)
[2020-05-24] MEDS: HYDROmorphone 0.5 MG/0.5 ML SYRINGE IVP PRN ×2 (00:39→10:59)
[2020-05-24] MEDS: methylPREDNISolone SOD SUCCI 40 MG/ML 1 ML VIAL IV SCH ×2 (00:39→09:24)
[2020-05-24] MEDS: LORazepam 2 MG/ML INJ IV PRN ×2 (00:41→11:00)
[2020-05-24 06:52] LABS: Glucose,Whole Blood 310 mg/dL (75-99)
[2020-05-24] MEDS: PANTOPRAZOLE 40 MG TABLET PO SCH (07:01)
[2020-05-24 07:47] LABS: Calcium 8.9 mg/dL (8.4-10.2); Potassium 4.9 mmol/L (3.5-5.1)
[2020-05-24 08:04] LABS: Anisocytosis Moderate; HCT 26.2 % (34.0-46.0); HGB 7.9 gm/dL (11.4-16.0); Hypochromasia Marked; MCH 32.4 pg (25.0-35.0); MCHC 30.1 g/dL (31.0-37.0); MCV 107.6 fL (80.0-100.0); Macrocytosis Marked; Mean Platelet Volume 8.3; Platelet Count 786 k/uL (150-450); Poikilocytosis Slight; RBC 2.44 m/uL (3.80-5.40); RDW 23.2 % (11.5-15.5)
[2020-05-24] MEDS: SYMBICORT 160-4.5 MCG INHALER INHALATION SCH (08:10)
[2020-05-24] MEDS: ALBUTEROL HFA INHALER INHALATION PRN (08:10)
[2020-05-24 08:41] LABS: Band Neutrophils % 4 %; Metamyelocytes % 3 %; Myelocytes % 7 %; Neutrophils % (M) 85 %; Nucleated Red Blood Cells 7 /100 WBC (0-0); Total Cells Counted 200
[2020-05-24 08:42] LABS: Lymphocytes # (M) 0.75 k/uL (1.0-4.8); Metamyelocytes # (M) 2.25 k/uL (0); Myelocytes # (M) 5.26 k/uL (0); WBC 75.1 k/uL (3.8-10.6)
[2020-05-24 08:43] LABS: Poikilocytosis (M) Present; Polychromasia Present
[2020-05-24] MEDS: INSULIN ASPART (NovoLOG) 100 UNIT/ML VIAL SQ SCH ×2 (09:24)
[2020-05-24 10:49] VITALS: BP 150/74; PULSE 98; RESP 30; TEMP 97
[2020-05-24] MEDS ORDERED: ONDANSETRON 4 MG/2 ML VIAL IVP PRN (11:03)
[2020-05-24] MEDS ORDERED: ARTIFICIAL TEARS-HYPROMELLOSE DROPS 15 ML BTL BOTH EYES PRN (11:03)
[2020-05-24] MEDS ORDERED: ATROPINE OPHTH SOLN 1% 5ML BTL SUBLINGUAL PRN (11:03)
[2020-05-24] MEDS ORDERED: ACETAMINOPHEN SUPPOSITORY 650 MG SUPP RECTAL PRN (11:03)
[2020-05-24] MEDS ORDERED: DRY MOUTH SPRAY 44.3 SPRAY/44.3 ML SPRAY MUCOUS MEM PRN (11:03)
[2020-05-24] MEDS ORDERED: HYDROmorphone 1 MG/ML 1 ML SYRINGE IVP PRN (11:03)
--- NOTE | 2020-05-24 11:34 | P.PN ---
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 fib and has done well has been seen oncology on regular basis apparently she was diagnosed with worsening dyspnea and shortness of breath found to have significant lymph nodes in the mediastinal area with left breast mass measured 1.7, 1.4 cm biopsy of the breasts and axilla on 02/17/2020 was consistent with invasive ductal carcinoma ER/CA negative, HER-2 1+, no evidence of metastasis disease lung infiltrate and pleural effusion had resolved gabriela Moura was started on new adjuvant dose dense of chemotherapy in April 09 she had a prolonged hospitalization no April 11 till April 24 for CHF exacerbation and she had a pleural effusion suspected pneumonia 6 L of thoracentesis of the right side was taking she had also severe leukopenia and was in ICU for long time with WBC/ANC recover about 9 days after G-CSF injection was started. 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 Patient presented to [facility] emergency department complaining of severe weakness and fatigue patient profound weakness fall on the floor was in able to move her arms and legs her went to lift her out of bed to go to the bathroom and that she is basically just felt to the floor she denies any fever, nausea headache dizziness no vomiting positive mild dyspnea and shortness of breath no chest pain positive mild abdominal pain with no dysuria diarrhea constipation swelling of the legs she has generalized weakness no focal deficit. At the presentation to [place] emergency department found to have elevated troponin with proBNP was 1999 with concern of pneumonia she was giving Levaquin and vancomycin and transfer to [facility] to be under cardiology and oncology. 05/15: Patient evaluated this morning, resting in bed comfortably. She denies any shortness of breath of chest pain. She echocardiogram yesterday that showed moderate concentric left ventricular hypertrophy, normal left ventricular systolic function with an EF between 60-65%, mild aortic regurgitation, moderate mitral regurgitation, moderate tricuspid regurgitation, and moderate pulmonary hypertension. Cardiology is on consult for elevated troponin, believes elevated troponins are not related to acute coronary syndrome. She continues on Levaquin for pneumonia. Glucose is noted to be slightly elevated, she started on 5 units NovoLog with meals plus sliding scale and hold for blood sugar less than 100. 05/16: Patient noted to be resting in bed comfortably, she is in no acute distress. CT of the chest showed bilateral pleural effusions, ultrasound of the chest was ordered, showed moderate left pleural effusion. Pulmonary on consult. Interventional radiology consulted for left-sided thoracentesis. She continues on Levaquin for pneumonia, Blood cultures show no growth to date. Patient was noted to have a hypoglycemic event, glucose 145. Patient is given half amp of dextrose IV fluids were changed to D5. Levemir was decreased to 45 units. Acute coronary event has been ruled out by cardiology. Patient noted to be hypothermic with a rectal temp of 95.3, warming blankets placed on patient. 05/17: Patient evaluated this morning, resting in bed comfortably, she is in no acute distress. Plans on interventional radiology for left-sided thoracentesis canceled due to high risk and concern for pneumothorax during procedure. Patient continues to be short of breath, still on high flow oxygen at 15 L, she is currently saturating 95%. Blood cultures show no growth to date. Pulmonary and oncology continue to follow. She continues on Solu-Medrol 40 mg every 8 hours along with updraft treatments. 05/18: Patient remain in quite but shortness of breath, consult infectious disease to see patient and evaluate her pneumonia, white blood cell slightly bit better patient likely for chemotherapy watch his the [facility], [facility] to still at least 5-15 L. 05/19: Patient antibiotic was changed after seen infectious disease was started on Azactam 2 gram every 8 hours she seems to do slightly better with it, oxygenation is much better than before, no need for thoracentesis at this point, lab has improved patient still seen oncology note chemotherapies done at this point. 05/20: Patient is clinically doing much better continue to have slight shortness of breath with exertion, white blood cell has climb up quite. Combination of infection, steroid and probably Neupogen, continue to see oncology and ID no new infection at this point. 05/21: Patient evaluated this morning, resting in bed, she is having a little bit more shortness of breath today. Her oxygen saturation was noted to drop to 75% on high flow 15 L patient was then switched to a nonrebreather, she is currently 93%, she is tachypneic. Repeat chest x-ray shows persistent patchy densities in both lungs, some blunting at the costophrenic angle on the right, correlate for pneumonia also mediastinal adenopathy and pleural effusion. White cell continues to increase, 93.9 today, hemoglobin unchanged from yesterday at 7.8. Patient has complaints of frequent diarrhea, C. diff was negative repeat Covid test was negative as well. Patient continues on Aztreonam and vancomycin. Infectious disease, pulmonary and oncology on consult. 05/22: Patient sitting up in bed, noted to have active nose bleed from right nostril. Repeat labs obtained, WBC still elelvated at 93.6, Hgb 7.7, platelet count 647. Nasal packing applied per nursing staff. Will hold Eliquis today. Patient complaining of increased shortness of breath and breathing more labored today. She is requiring high flow oxygen and is saturating upper 80s to low 90s. She continues on Aztreonam, Vancomycin and Solumedrol 40mg Q8 hours along with updrafts. Pulmonary and oncology are following. 05/23: Patient evaluated this morning, noted to be more short of breath and hypoxic. This a patient was placed on high flow yesterday and still was in the low 80s, she was then placed on BiPAP with a FiO2 of 90, her oxygen saturation is currently 92% and remains in the low 90%, patient still continues to be tachypneic. Overall clinically continues to decline daily despite antibiotic treatment with Aztreoman, vancomycin and Solu-Medrol 40 mg every 8 hours. 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 Will make arrangements for transfer. 05/24: Attempted to transfer patient to [facility] or [facility] yesterday, unfortunately the hospitals are full and patient was not accepted. Patient continues to decline with worsening respiratory failure. She is now 100% on BiPAP and her oxygen saturation is in the 70s. Patient does not wish to be intubated, had long discussion with patient regarding her poor prognosis. Patient was like hospice care. Hospice consult was placed, family was notified. Will continue to make patient as comfortable as possible. Objective - Vital Signs Vital signs: Vital Signs Temp 97.0 F L 05/24/20 08:00 Pulse 98 05/24/20 08:00 Resp 30 H 05/24/20 08:00 BP 150/74 05/24/20 08:00 Pulse Ox 74 L 05/24/20 08:00 Intake & Output 05/23/20 05/24/20 05/24/20 18:59 06:59 18:59 Intake Total 1140 236 Output Total 1100 660 Balance 40 -660 236 Weight 80 kg Intake: Oral 1140 236 Output: Urine 1100 660 Other: Voiding Method Indwelling Catheter Indwelling Catheter Indwelling Catheter - Constitutional General appearance: Present: cooperative, mild distress - EENT Eyes: Present: EOMI, PERRLA, normal appearance ENT: Present: hearing grossly normal, normal oropharynx. Absent: pharyngeal erythema, thrush - Respiratory Respiratory: bilateral: diminished, dullness, negative: rales, wheezing - Cardiovascular Rhythm: regular Heart sounds: normal: S1, S2 - Gastrointestinal General gastrointestinal: Present: decreased bowel sounds, soft. Absent: organomegaly, tenderness - Integumentary Integumentary: Present: decreased turgor, pale. Absent: flushed, jaundiced, ulcer - Neurologic Neurologic: Present: CNII-XII intact. Absent: focal deficits - Musculoskeletal Musculoskeletal: Present: generalized weakness, strength equal bilaterally - Psychiatric Psychiatric: Present: A&O x's 3, appropriate affect - Labs CBC & Chem 7: 05/24/20 07:19 05/24/20 07:19 Labs: Abnormal Lab Results - Last 24 Hours (Table) 05/23/20 05/23/20 05/23/20 Range/Units 11:59 16:45 20:08 WBC (3.8-10.6) k/uL RBC (3.80-5.40) m/uL Hgb (11.4-16.0) gm/dL Hct (34.0-46.0) % MCV (80.0-100.0) fL MCHC (31.0-37.0) g/dL RDW (11.5-15.5) % Plt Count (150-450) k/uL Neutrophils # (Manual) (1.3-7.7) k/uL Lymphocytes # (Manual) (1.0-4.8) k/uL Monocytes # (Manual) (0-1.0) k/uL Metamyelocytes # (Man) (0) k/uL Myelocytes # (Manual) (0) k/uL Nucleated RBCs (0-0) /100 WBC Macrocytosis Chloride (98-107) mmol/L BUN (7-17) mg/dL Glucose (74-99) mg/dL POC Glucose (mg/dL) 284 H 263 H 305 H (75-99) mg/dL 05/24/20 05/24/20 05/24/20 Range/Units 06:47 07:19 07:19 WBC 75.1 H* (3.8-10.6) k/uL RBC 2.44 L (3.80-5.40) m/uL Hgb 7.9 L (11.4-16.0) gm/dL Hct 26.2 L (34.0-46.0) % MCV 107.6 H (80.0-100.0) fL MCHC 30.1 L (31.0-37.0) g/dL RDW 23.2 H (11.5-15.5) % Plt Count 786 H (150-450) k/uL Neutrophils # (Manual) 66.80 H (1.3-7.7) k/uL Lymphocytes # (Manual) 0.75 L (1.0-4.8) k/uL Monocytes # (Manual) 1.50 H (0-1.0) k/uL Metamyelocytes # (Man) 2.25 H (0) k/uL Myelocytes # (Manual) 5.26 H (0) k/uL Nucleated RBCs 7 H (0-0) /100 WBC Macrocytosis Marked A Chloride 110 H (98-107) mmol/L BUN 60 H (7-17) mg/dL Glucose 293 H (74-99) mg/dL POC Glucose (mg/dL) 310 H (75-99) mg/dL Assessment and Plan Plan: 1 right-sided pneumonia: Most likely gram-negative specially with recent history of neutropenia post chemotherapy, antibiotics with Azactam 2 g IV every 8 hours, along with vancomycin, patient opened to hospice 2 right-sided pleural effusion: After large pleural effusion with 90 to removed recently patient is doing well at this point need to be watch over time. No pleural effusion can be drained at this point. 3 non-ST SD: With elevated troponin, no sign of SD or cardiac this point this was ruled out. 4 severe generalized weakness most likely constitutional symptom secondary to chemotherapy along with her cancer 5 chronic history of A. fib with RVR: Pulse rates under control currently patient will remain on atenolol 25 mg daily. 6 history of breast cancer been treated with chemotherapy with reaction on side effect of chemotherapy. 7 type 2 diabetes on insulin: Continue patient on Levemir along with Accu-Chek sliding scales coverage still on metformin as well. 8 history of COPD: Remain on Symbicort along with DuoNeb and multiple a cast and supportive O2. 9 severe leukocytosis: Combination of her infection along with steroid and Neupogen. 10 GI prophylaxis: Patient to continue on pantoprazole 40 mg daily. 11 diastolic congestive heart failure: Remain on Lasix and lisinopril. 12 hypertension: Was well controlled on atenolol, Norvasc 10 mg daily, Zestril 20 mg daily. 13. Diarrhea. C. diff was negative, continue Imodium 14. Epistaxis: most likely side effect from Eliquis, will hold for now DVT prophylaxis: Eliquis on hold due to bleed GI prophylaxis: On Pepcid. CODE STATUS: No code, opened to hospice The above impression and plan of care have been discussed and directed by signing physician. Luzma Ivey nurse practitioner acting as scribe for signing physician.
--- NOTE | 2020-05-24 11:46 | US ---
Ultrasound-guided therapeutic and diagnostic thoracentesis DATE OF EXAM: 05/19/2020 CLINICAL HISTORY: Left pleural effusion The procedure was discussed with the patient. The risks, complications, benefits, and alternatives we re discussed and any questions were answered. Informed consent was obtained. The patient was placed supine on the ultrasound table and prepped and draped in the usual sterile fas hion. All elements of maximal barrier and sterile technique were utilized. Preliminary imaging demonstrated only small amount of pleural fluid. Along the extended near the pleu ral surface. The patient refused the procedure.. IMPRESSION: 1. Discontinue thoracentesis.
[2020-05-24] MEDS ORDERED: SCOPOLAMINE 1.5MG/72HR PATCH TRANSDERM SCH (12:00)
[2020-05-24] MEDS ORDERED: metFORMIN 500 MG TAB PO SCH (21:00)
== END 2020-05-24 14:35 | disposition expired | DRG 871 ==
LOC: EC 07:49 → 3SCARD 08:40 → OBSVTOIN 05-15 08:19
PROVIDERS: ADMIT Internal Medicine Geriatric Medicine; ATTEND Internal Medicine Geriatric Medicine
PROC: 5A09457 Assistance with Respiratory Ventilation, 24-96 Consecutive Hours, Continuous Positive Airway Pressure (ICD-10-PCS; principal; 2020-05-22)
DX: A41.9 Sepsis, unspecified organism (principal); I50.33 Acute on chronic diastolic (congestive) heart failure; J15.6 Pneumonia due to other Gram-negative bacteria; J96.01 Acute respiratory failure with hypoxia; E87.2 Acidosis; I48.19 Other persistent atrial fibrillation; J44.0 Chronic obstructive pulmonary disease with (acute) lower respiratory infection; J91.8 Pleural effusion in other conditions classified elsewhere; I11.0 Hypertensive heart disease with heart failure; C50.912 Malignant neoplasm of unspecified site of left female breast; I27.20 Pulmonary hypertension, unspecified; E11.649 Type 2 diabetes mellitus with hypoglycemia without coma; Z79.4 Long term (current) use of insulin; T68.XXXA Hypothermia, initial encounter; D72.829 Elevated white blood cell count, unspecified; T38.0X5A Adverse effect of glucocorticoids and synthetic analogues, initial encounter; R19.7 Diarrhea, unspecified; R04.0 Epistaxis; Z66 Do not resuscitate; Z51.5 Encounter for palliative care; R53.1 Weakness; T45.1X5A Adverse effect of antineoplastic and immunosuppressive drugs, initial encounter; Z20.828 Contact with and (suspected) exposure to other viral communicable diseases; D72.823 Leukemoid reaction; D64.9 Anemia, unspecified; R59.0 Localized enlarged lymph nodes; I08.3 Combined rheumatic disorders of mitral, aortic and tricuspid valves; E78.5 Hyperlipidemia, unspecified; Z53.29 Procedure and treatment not carried out because of patient's decision for other reasons; E03.9 Hypothyroidism, unspecified; L30.9 Dermatitis, unspecified; J84.89 Other specified interstitial pulmonary diseases; F41.9 Anxiety disorder, unspecified; Z17.0 Estrogen receptor positive status [ER+]; Z90.49 Acquired absence of other specified parts of digestive tract; Z90.710 Acquired absence of both cervix and uterus; Z88.1 Allergy status to other antibiotic agents; Z98.890 Other specified postprocedural states; Z88.0 Allergy status to penicillin; Z88.2 Allergy status to sulfonamides; Z88.8 Allergy status to other drugs, medicaments and biological substances; Z79.899 Other long term (current) drug therapy; Z79.82 Long term (current) use of aspirin; Z79.890 Hormone replacement therapy; Z98.891 History of uterine scar from previous surgery; Z86.14 Personal history of Methicillin resistant Staphylococcus aureus infection; Z92.21 Personal history of antineoplastic chemotherapy; Z87.891 Personal history of nicotine dependence; Z92.3 Personal history of irradiation; Z82.49 Family history of ischemic heart disease and other diseases of the circulatory system; Z79.01 Long term (current) use of anticoagulants
CPT/HCPCS: 36600; 71045; 71046; 71260; 71275; 76604; 80048; 80053; 80202; 82607; 82805; 83605; 84145; 84439; 84443; 84481; 84484; 85025; 85027; 85610; 86140; 87040; 87324; 87635; 93005; 93306; 94640; 94660; 94760; 99285